=== PATIENT | female | born 1945 | race Caucasian/White ===

== ENCOUNTER 2017-12-26 11:00 | Inpatient (IN) | payer OTHER, BC ==
[2017-12-26 13:14] VITALS: BMI 18.8
[2017-12-26 14:09] VITALS: RESP 20
[2017-12-26] MEDS ORDERED: guaiFENesin DM 100 mg-10 mg/5 ml UD PO PRN (16:32)
--- NOTE | 2017-12-26 17:06 | CP.PCM.HP ---
History of Present Illness - History of Present Illness History of Present Illness: 72 yo female with history of Multiple Myeloma, CAD, COPD, HTN and DM2 was admitted at [facility] on 12/18/2017 because of generalized weakness and chest pain. Patient was diagnosed with NSTEMI when 3 sets of Troponins turned out significantly elevated. She was treated conservatively. Patient was also worked up for dysphagia and had endoscopy on 12/22/2017 which showed gastritis. She was transferred to [facility] for strengthening exercises and therapy. Present on Admission - Present on Admission Any Indicators Present on Admission: No History of DVT/PE: No History of Uncontrolled Diabetes: No Urinary Catheter: No Decubitus Ulcer Present: No Review of Systems - Review of Systems All systems: reviewed and no additional remarkable complaints except (aside from those mentioned above, 12 point system review were negative by me) Past Patient History - Infectious Disease Hx of Infectious Diseases: None - Past Medical History & Family History Past Medical History?: Yes - Past Social History Smoking Status: Never Smoked Alcohol: None Drugs: Denies Home Situation {Lives}: With Family - CARDIAC Hx Cardiac Disorders: Yes Hx Hypercholesterolemia: Yes Hx Hypertension: Yes - PULMONARY Hx Respiratory Disorders: No Hx Chronic Obstructive Pulmonary Disease (COPD): Yes - NEUROLOGICAL Hx Neurological Disorder: No - HEENT Hx HEENT Problems: Yes Hx Glaucoma: Yes - RENAL Hx Chronic Kidney Disease: No - ENDOCRINE/METABOLIC Hx Diabetes Mellitus Type 2: Yes - HEMATOLOGICAL/ONCOLOGICAL Hx Blood Disorders: No Hx Anemia: Yes Other/Comment: Multiple myeloma - INTEGUMENTARY Hx Dermatological Problems: No - MUSCULOSKELETAL/RHEUMATOLOGICAL Hx Falls: No - GASTROINTESTINAL Hx Gastrointestinal Disorders: No - GENITOURINARY/GYNECOLOGICAL Hx Genitourinary Disorders: No - PSYCHIATRIC Hx Substance Use: No - SURGICAL HISTORY Hx Coronary Artery Bypass Graft: Yes - ANESTHESIA Hx Anesthesia: Yes Hx Anesthesia Reactions: No Hx Malignant Hyperthermia: No Meds Allergies/Adverse Reactions: Allergies Allergy/AdvReac Type Severity Reaction Status Date / Time No Known Allergies Allergy Verified 12/26/17 13:14 Physical Exam - Constitutional Appears: No Acute Distress - Head Exam Head Exam: ATRAUMATIC - Eye Exam Eye Exam: absent: Scleral icterus - ENT Exam ENT Exam: Mucous Membranes Moist - Neck Exam Neck exam: Negative for: Meningismus - Respiratory Exam Respiratory Exam: absent: Rales, Rhonchi, Wheezes, Respiratory Distress - Cardiovascular Exam Cardiovascular Exam: REGULAR RHYTHM, +S1, +S2, Systolic Murmur - GI/Abdominal Exam GI & Abdominal Exam: Soft. absent: Tenderness - Rectal Exam Rectal Exam: Deferred - Back Exam Back exam: NORMAL INSPECTION - Neurological Exam Neurological exam: Alert, Oriented x3 - Psychiatric Exam Psychiatric exam: Normal Affect - Skin Skin Exam: Dry, Intact Results - Vital Signs Recent Vital Signs: Last Vital Signs Temp 96.8 F L 12/26/17 16:00 Pulse 72 12/26/17 16:00 Resp 20 12/26/17 16:00 BP 144/78 12/26/17 16:00 Pulse Ox 98 12/26/17 16:00 - Labs Labs: Laboratory Results - last 24 hr 12/26/17 16:05 POC Glucose (mg/dL) 97 Assessment & Plan - Assessment and Plan (Free Text) Assessment: 72 yo female with history of Multiple Myeloma, CAD, COPD, HTN and DM2 was admitted at [facility] on 12/18/2017 because of generalized weakness and chest pain. Patient was diagnosed with NSTEMI when 3 sets of Troponins turned out significantly elevated. She was treated conservatively. Patient was also worked up for dysphagia and had endoscopy on 12/22/2017 which showed gastritis. She was transferred to [facility] for strengthening exercises and therapy. 1. Generalized Weakness refer to PT/OT for evaluation and management 2. Multiple Myeloma Dr Mosley on consult 3. CAD continue Metoprolol and statin 4. HTN BP stable continue Metoprolol 5. DM2 BS controlled continue Januvia
[2017-12-27] MEDS: Metoprolol Succinate 25 mg XL Tab PO SCH (09:26)
--- NOTE | 2017-12-27 12:01 | CP.PCM.CON ---
History of Present Illness - History of Present Illness History of Present Illness: 72 year old female with a history of CAD s/p CABG, HTN, DM, multiple myeloma diagnosed in 10/2017, admitted to inpatient rehab. She has been receiving outpatient Velcade treatments for her myeloma. She had been on dexamethasone for myeloma treatment which was discontinued due to severe hyperglycemia. Past medical history: CAD, HTN, DM Past surgical history: CABG Family history: Denies hematologic and oncologic problems Social history: Denies tobacco, alcohol, and illicit drug use. Allergies: NKA Review of systems: All remaining review of systems including HEENT, cardiovascular, respiratory, gastrointestinal, genitourinary, musculoskeletal, dermatologic, neurologic, and psychiatric are negative unless mentioned in the HPI. Past Patient History - Infectious Disease Hx of Infectious Diseases: None - Past Medical History & Family History Past Medical History?: Yes - Past Social History Smoking Status: Never Smoked Alcohol: None Drugs: Denies Home Situation {Lives}: With Family - CARDIAC Hx Cardiac Disorders: Yes Hx Hypercholesterolemia: Yes Hx Hypertension: Yes - PULMONARY Hx Respiratory Disorders: No Hx Chronic Obstructive Pulmonary Disease (COPD): Yes - NEUROLOGICAL Hx Neurological Disorder: No - HEENT Hx HEENT Problems: Yes Hx Glaucoma: Yes - RENAL Hx Chronic Kidney Disease: No - ENDOCRINE/METABOLIC Hx Diabetes Mellitus Type 2: Yes - HEMATOLOGICAL/ONCOLOGICAL Hx Blood Disorders: No Hx Anemia: Yes Other/Comment: Multiple myeloma - INTEGUMENTARY Hx Dermatological Problems: No - MUSCULOSKELETAL/RHEUMATOLOGICAL Hx Falls: No - GASTROINTESTINAL Hx Gastrointestinal Disorders: No - GENITOURINARY/GYNECOLOGICAL Hx Genitourinary Disorders: No - PSYCHIATRIC Hx Substance Use: No - SURGICAL HISTORY Hx Coronary Artery Bypass Graft: Yes - ANESTHESIA Hx Anesthesia: Yes Hx Anesthesia Reactions: No Hx Malignant Hyperthermia: No Meds Allergies/Adverse Reactions: Allergies Allergy/AdvReac Type Severity Reaction Status Date / Time No Known Allergies Allergy Verified 12/26/17 13:14 - Medications Medications: Current Medications Allopurinol (Zyloprim) 100 mg PO DAILY [facility] Last Admin: 12/27/17 09:26 Dose: 100 mg Atorvastatin Calcium (Lipitor) 10 mg PO HS [facility] Last Admin: 12/26/17 21:17 Dose: 10 mg Famotidine (Pepcid) 20 mg PO DAILY [facility] Last Admin: 12/27/17 09:25 Dose: 20 mg Ferrous Sulfate (Feosol) 325 mg PO TID [facility] Last Admin: 12/27/17 09:30 Dose: 325 mg Guaifenesin/Dextromethorphan (Robitussin Dm) 5 ml PO Q6 PRN PRN Reason: Cough Metoprolol Succinate (Toprol Xl) 12.5 mg PO DAILY [facility] Last Admin: 12/27/17 09:26 Dose: 12.5 mg Sitagliptin Phosphate (Januvia) 25 mg PO DAILY [facility] Last Admin: 12/27/17 09:27 Dose: 25 mg Physical Exam - Head Exam Head Exam: ATRAUMATIC - Eye Exam Eye Exam: Normal appearance - ENT Exam ENT Exam: Mucous Membranes Dry - Respiratory Exam Respiratory Exam: NORMAL BREATHING PATTERN - Cardiovascular Exam Cardiovascular Exam: +S1, +S2 - GI/Abdominal Exam GI & Abdominal Exam: Normal Bowel Sounds Results - Vital Signs Recent Vital Signs: Last Vital Signs Temp 97.2 F L 12/27/17 08:17 Pulse 64 12/27/17 09:26 Resp 20 12/27/17 08:17 BP 132/72 12/27/17 09:26 Pulse Ox 100 12/27/17 08:17 - Labs Labs: Laboratory Results - last 24 hr 12/26/17 12/26/17 12/27/17 16:05 20:44 06:06 POC Glucose (mg/dL) 97 142 H 81 12/27/17 11:15 POC Glucose (mg/dL) 125 H Assessment & Plan (1) Multiple myeloma Assessment and Plan: outpatient revlimid and velcade Thank you for this interesting consult. Status: Acute
[2017-12-28] MEDS: Metoprolol Succinate 25 mg XL Tab PO SCH (09:20)
[2017-12-28] MEDS: Lactobacillus Acidophilus 500 MU Cap PO SCH (17:14)
[2017-12-28] MEDS: Brimonidine 0.2% 50 DROP/5 ML BOTTLE OU SCH (21:07)
[2017-12-29 06:43] LABS: EOS % 0.4 % (0.0-4.0); HEMOGLOBIN 8.4 g/dL (12.0-16.0); LYMPH # 1.8 K/uL (1.0-4.3); LYMPH % 36.8 % (20.0-40.0); MEAN CELL VOLUME 98.9 fl (81.0-99.0); MEAN CORPUSCULAR HEMOGLOBIN 32.4 pg (27.0-31.0); MEAN CORPUSCULAR HGB CONC 32.8 g/dL (33.0-37.0); MEAN PLATELET VOLUME 10.7 fl (7.2-11.7); MONO # 0.2 K/uL (0.0-0.8); MONO % 4.5 % (0.0-10.0); NEUT # 2.8 K/uL (1.8-7.0); NEUT % 57.3 % (50.0-75.0); NRBC % 0.1 % (0.0-0.0); RBC 2.6 Mil/uL (3.80-5.20); RED CELL DISTRIBUTION WIDTH 20.5 % (11.5-14.5); WHITE BLOOD COUNT 4.9 K/uL (4.8-10.8)
[2017-12-29 06:45] LABS: ALB/GLOB RATIO 0.6 (1.0-2.1); ALT/SGPT 25 U/L (9-52); AST/SGOT 20 U/L (14-36); BLOOD UREA NITROGEN 11 mg/dl (7-17); CALCIUM 7.9 mg/dL (8.4-10.2); GFR AFRICAN-AMERICAN > 60; GFR NON-AFRICAN AMERICAN > 60
[2017-12-29] MEDS: Metoprolol Succinate 25 mg XL Tab PO SCH (10:15)
[2017-12-29] MEDS: Lactobacillus Acidophilus 500 MU Cap PO SCH ×2 (10:19→17:13)
--- NOTE | 2017-12-29 11:53 | CP.PCM.PN ---
Subjective - Date & Time of Evaluation Date of Evaluation: 12/29/17 Time of Evaluation: 09:40 - Subjective Subjective: Feels tired Objective - Vital Signs/Intake and Output Vital Signs (last 24 hours): Temp Pulse Resp BP Pulse Ox 97.9 F 65 20 135/73 100 12/29/17 08:10 12/29/17 10:15 12/29/17 08:10 12/29/17 10:15 12/29/17 08:10 - Medications Medications: Current Medications Allopurinol (Zyloprim) 100 mg PO DAILY [facility] Last Admin: 12/29/17 10:17 Dose: 100 mg Atorvastatin Calcium (Lipitor) 10 mg PO HS [facility] Last Admin: 12/28/17 21:07 Dose: 10 mg Brimonidine Tartrate (Alphagan 0.2% Opht) 1 drop OU HS [facility] Last Admin: 12/28/17 21:07 Dose: 1 drop Famotidine (Pepcid) 20 mg PO DAILY [facility] Last Admin: 12/29/17 10:16 Dose: 20 mg Ferrous Sulfate (Feosol) 325 mg PO TID [facility] Last Admin: 12/29/17 10:16 Dose: 325 mg Guaifenesin/Dextromethorphan (Robitussin Dm) 5 ml PO Q6 PRN PRN Reason: Cough Lactobacillus Acidophilus (Bacid Acidophilus) 1 cap PO BID [facility] Last Admin: 12/29/17 10:19 Dose: 1 cap Metoprolol Succinate (Toprol Xl) 12.5 mg PO DAILY [facility] Last Admin: 12/29/17 10:15 Dose: 12.5 mg Sitagliptin Phosphate (Januvia) 25 mg PO DAILY [facility] Last Admin: 12/29/17 10:16 Dose: 25 mg - Labs Labs: 12/29/17 06:00 12/29/17 06:00 - Head Exam Head Exam: ATRAUMATIC - Eye Exam Eye Exam: Normal appearance - ENT Exam ENT Exam: Mucous Membranes Dry - Respiratory Exam Respiratory Exam: NORMAL BREATHING PATTERN - Cardiovascular Exam Cardiovascular Exam: +S1, +S2 Assessment and Plan (1) Anemia Assessment & Plan: anemia of chronic disease and multiple myeloma Status: Acute (2) Thrombocytopenia Assessment & Plan: improving suspect prior UTI Status: Acute (3) Multiple myeloma Assessment & Plan: outpatient treatment Status: Acute
[2017-12-29] MEDS: Brimonidine 0.2% 50 DROP/5 ML BOTTLE OU SCH (21:11)
[2017-12-30] MEDS: Metoprolol Succinate 25 mg XL Tab PO SCH (08:24)
[2017-12-30] MEDS: Lactobacillus Acidophilus 500 MU Cap PO SCH ×2 (08:27→17:15)
[2017-12-30] MEDS: Brimonidine 0.2% 50 DROP/5 ML BOTTLE OU SCH (21:22)
[2017-12-31] MEDS: Metoprolol Succinate 25 mg XL Tab PO SCH (09:09)
[2017-12-31] MEDS: Lactobacillus Acidophilus 500 MU Cap PO SCH ×2 (09:09→17:07)
[2017-12-31] MEDS: Brimonidine 0.2% 50 DROP/5 ML BOTTLE OU SCH (21:18)
[2018-01-01] MEDS: Lactobacillus Acidophilus 500 MU Cap PO SCH ×2 (08:29→16:47)
[2018-01-01] MEDS: Metoprolol Succinate 25 mg XL Tab PO SCH (08:30)
[2018-01-01] MEDS: Brimonidine 0.2% 50 DROP/5 ML BOTTLE OU SCH (21:53)
[2018-01-02] MEDS: Lactobacillus Acidophilus 500 MU Cap PO SCH ×2 (08:21→16:46)
[2018-01-02] MEDS: Metoprolol Succinate 25 mg XL Tab PO SCH (08:21)
--- NOTE | 2018-01-02 12:06 | CP.PCM.PN ---
Subjective - Date & Time of Evaluation Date of Evaluation: 01/02/18 Time of Evaluation: 11:00 - Subjective Subjective: Seen participating in rehab Objective - Vital Signs/Intake and Output Vital Signs (last 24 hours): Temp Pulse Resp BP Pulse Ox 97.9 F 70 20 132/62 99 01/02/18 08:12 01/02/18 08:21 01/02/18 08:12 01/02/18 08:21 01/02/18 08:12 - Medications Medications: Current Medications Allopurinol (Zyloprim) 100 mg PO DAILY [facility] Last Admin: 01/02/18 08:22 Dose: 100 mg Atorvastatin Calcium (Lipitor) 10 mg PO HS [facility] Last Admin: 01/01/18 21:53 Dose: 10 mg Brimonidine Tartrate (Alphagan 0.2% Opht) 1 drop OU HS [facility] Last Admin: 01/01/18 21:53 Dose: 1 drop Famotidine (Pepcid) 20 mg PO DAILY [facility] Last Admin: 01/02/18 08:22 Dose: 20 mg Ferrous Sulfate (Feosol) 325 mg PO TID [facility] Last Admin: 01/02/18 08:23 Dose: 325 mg Guaifenesin/Dextromethorphan (Robitussin Dm) 5 ml PO Q6 PRN PRN Reason: Cough Lactobacillus Acidophilus (Bacid Acidophilus) 1 cap PO BID [facility] Last Admin: 01/02/18 08:21 Dose: 1 cap Metoprolol Succinate (Toprol Xl) 12.5 mg PO DAILY [facility] Last Admin: 01/02/18 08:21 Dose: 12.5 mg Sitagliptin Phosphate (Januvia) 25 mg PO DAILY [facility] Last Admin: 01/02/18 08:22 Dose: 25 mg - Labs Labs: 12/29/17 06:00 12/29/17 06:00 - Head Exam Head Exam: ATRAUMATIC - Eye Exam Eye Exam: Normal appearance - ENT Exam ENT Exam: Mucous Membranes Dry - Respiratory Exam Respiratory Exam: NORMAL BREATHING PATTERN - Cardiovascular Exam Cardiovascular Exam: +S1, +S2 - GI/Abdominal Exam GI & Abdominal Exam: Normal Bowel Sounds Assessment and Plan (1) Anemia Assessment & Plan: chronic disease and multiple myeloma Status: Acute (2) Thrombocytopenia Assessment & Plan: improving Status: Acute (3) Multiple myeloma Assessment & Plan: outpatient treatment Status: Acute
--- NOTE | 2018-01-02 14:11 | CP.PCM.PN ---
Subjective - Date & Time of Evaluation Date of Evaluation: 12/28/17 Time of Evaluation: 12:00 - Subjective Subjective: Patient was seen and examined at bedside. Complains of some mild epigastric pain after eating (known history of gastritis with recent endoscopy). Denies any chest pain, shortness of breath, weakness. Tolerating therapies well. Objective - Vital Signs/Intake and Output Vital Signs (last 24 hours): Temp Pulse Resp BP Pulse Ox 96.8 F L 66 20 137/67 97 12/28/17 08:25 12/28/17 09:46 12/28/17 08:25 12/28/17 09:20 12/28/17 09:46 - Medications Medications: Current Medications Allopurinol (Zyloprim) 100 mg PO DAILY [facility] Last Admin: 12/28/17 09:20 Dose: 100 mg Atorvastatin Calcium (Lipitor) 10 mg PO HS [facility] Last Admin: 12/27/17 21:18 Dose: 10 mg Famotidine (Pepcid) 20 mg PO DAILY [facility] Last Admin: 12/28/17 09:19 Dose: 20 mg Ferrous Sulfate (Feosol) 325 mg PO TID [facility] Last Admin: 12/28/17 12:31 Dose: 325 mg Guaifenesin/Dextromethorphan (Robitussin Dm) 5 ml PO Q6 PRN PRN Reason: Cough Metoprolol Succinate (Toprol Xl) 12.5 mg PO DAILY [facility] Last Admin: 12/28/17 09:20 Dose: 12.5 mg Sitagliptin Phosphate (Januvia) 25 mg PO DAILY [facility] Last Admin: 12/28/17 09:19 Dose: 25 mg - Additional Findings Additional findings: Physical exam: Constitutional- cooperative, awake, alert Head- NCAT, PERRL Eye- PERRL, EOMI ENT- normal exam, MMM. Neck- normal inspection, supple, no JVD Respiratory- CTAB, no wheezes rales rhonchi Cardiovascular- RRR, +S1, +S2 no MRG GI/Abdominal- normal bowel sounds, soft, no mass, no hsm Skin- warm, dry Extremities Exam- normal capillary refill, normal inspection Neurological Exam- alert, awake, oriented Psych- normal mood, normal affect Assessment and Plan - Assessment and Plan (Free Text) Plan: Assessment: 72 yo female with history of Multiple Myeloma, CAD, COPD, HTN and DM2 was admitted at [facility] on 12/18/2017 because of generalized weakness and chest pain. Patient was diagnosed with NSTEMI when 3 sets of Troponins turned out significantly elevated. She was treated conservatively. Patient was also worked up for dysphagia and had endoscopy on 12/22/2017 which showed gastritis. She was transferred to [facility] for strengthening exercises and therapy. 1. Generalized Weakness refer to PT/OT for evaluation and management f/u CBC, CMP in AM 2. Multiple Myeloma Dr Mosley on consult Recommends outpatient Revlimid and Velcade upon discharge 3. CAD continue Metoprolol and statin 4. Gastritis Maalox PRN 4. HTN BP stable continue Metoprolol 5. DM2 BS controlled continue Januvia
--- NOTE | 2018-01-02 14:24 | CP.PCM.PN ---
Subjective - Date & Time of Evaluation Date of Evaluation: 01/02/18 Time of Evaluation: 13:00 - Subjective Subjective: Patient was seen and examined in PT gym. States she is feeling well without further epigastric pain. Occasionally c/o being tired. Denies any chest pain, sob, focal weakness. She is tolerating her physical therapy well. Objective - Vital Signs/Intake and Output Vital Signs (last 24 hours): Temp Pulse Resp BP Pulse Ox 97.9 F 70 20 132/62 99 01/02/18 08:12 01/02/18 08:21 01/02/18 08:12 01/02/18 08:21 01/02/18 08:12 - Medications Medications: Current Medications Allopurinol (Zyloprim) 100 mg PO DAILY [facility] Last Admin: 01/02/18 08:22 Dose: 100 mg Aspirin (Ecotrin) 81 mg PO DAILY [facility] Atorvastatin Calcium (Lipitor) 10 mg PO HS [facility] Last Admin: 01/01/18 21:53 Dose: 10 mg Brimonidine Tartrate (Alphagan 0.2% Opht) 1 drop OU HS [facility] Last Admin: 01/01/18 21:53 Dose: 1 drop Famotidine (Pepcid) 20 mg PO DAILY [facility] Last Admin: 01/02/18 08:22 Dose: 20 mg Ferrous Sulfate (Feosol) 325 mg PO TID [facility] Last Admin: 01/02/18 12:29 Dose: 325 mg Guaifenesin/Dextromethorphan (Robitussin Dm) 5 ml PO Q6 PRN PRN Reason: Cough Lactobacillus Acidophilus (Bacid Acidophilus) 1 cap PO BID [facility] Last Admin: 01/02/18 08:21 Dose: 1 cap Metoprolol Succinate (Toprol Xl) 12.5 mg PO DAILY [facility] Last Admin: 01/02/18 08:21 Dose: 12.5 mg Sitagliptin Phosphate (Januvia) 25 mg PO DAILY [facility] Last Admin: 01/02/18 08:22 Dose: 25 mg - Labs Labs: 12/29/17 06:00 12/29/17 06:00 - Additional Findings Additional findings: Physical exam: Constitutional- cooperative, awake, alert Head- NCAT, PERRL Eye- PERRL, EOMI ENT- normal exam, MMM. Neck- normal inspection, supple, no JVD Respiratory- CTAB, no wheezes rales rhonchi Cardiovascular- RRR, +S1, +S2 no MRG GI/Abdominal- normal bowel sounds, soft, no mass, no hsm Skin- warm, dry Extremities Exam- normal capillary refill, normal inspection Neurological Exam- alert, awake, oriented Psych- normal mood, normal affect Assessment and Plan - Assessment and Plan (Free Text) Plan: 72 yo female with history of Multiple Myeloma, CAD, COPD, HTN and DM2 was admitted at [facility] on 12/18/2017 because of generalized weakness and chest pain. Patient was diagnosed with NSTEMI when 3 sets of Troponins turned out significantly elevated. She was treated conservatively. Patient was also worked up for dysphagia and had endoscopy on 12/22/2017 which showed gastritis. She was transferred to [facility] for strengthening exercises and therapy. 1. Generalized Weakness due to NSTEMI and multiple myeloma refer to PT/OT for evaluation and management f/u CBC, CMP in AM 2. Multiple Myeloma Dr Mosley on consult Recommends outpatient Revlimid and Velcade upon discharge 3. CAD with recent NSTEMI continue Metoprolol and statin Patient was not on aspirin even during last admission according to chart review ! Will start 81 mg po daily 4. GERD dx Maalox PRN 4. HTN BP stable continue Metoprolol 5. DM2 BS controlled
[2018-01-02] MEDS: Brimonidine 0.2% 50 DROP/5 ML BOTTLE OU SCH (21:26)
[2018-01-03] MEDS: Metoprolol Succinate 25 mg XL Tab PO SCH (09:10)
[2018-01-03] MEDS: Lactobacillus Acidophilus 500 MU Cap PO SCH ×2 (09:14→17:35)
[2018-01-03 20:01] VITALS: TEMP 97.3
[2018-01-03] MEDS: Brimonidine 0.2% 50 DROP/5 ML BOTTLE OU SCH (21:50)
[2018-01-04 08:23] VITALS: BP 135/69; PULSE 73; O2SAT 98
[2018-01-04] MEDS: Metoprolol Succinate 25 mg XL Tab PO SCH (08:54)
[2018-01-04] MEDS: Lactobacillus Acidophilus 500 MU Cap PO SCH (08:54)
--- NOTE | 2018-01-04 11:21 | CP.PCM.PN ---
Subjective - Date & Time of Evaluation Date of Evaluation: 01/04/18 Time of Evaluation: 11:00 - Subjective Subjective: No complaints, seen ambulating Objective - Vital Signs/Intake and Output Vital Signs (last 24 hours): Temp Pulse Resp BP Pulse Ox 97.3 F L 73 20 135/69 98 01/04/18 08:23 01/04/18 08:54 01/04/18 08:23 01/04/18 08:54 01/04/18 08:23 - Medications Medications: Current Medications Allopurinol (Zyloprim) 100 mg PO DAILY [facility] Last Admin: 01/04/18 08:54 Dose: 100 mg Aspirin (Ecotrin) 81 mg PO DAILY [facility] Last Admin: 01/04/18 08:54 Dose: 81 mg Atorvastatin Calcium (Lipitor) 10 mg PO HS [facility] Last Admin: 01/03/18 21:50 Dose: 10 mg Brimonidine Tartrate (Alphagan 0.2% Opht) 1 drop OU HS [facility] Last Admin: 01/03/18 21:50 Dose: 1 drop Famotidine (Pepcid) 20 mg PO DAILY [facility] Last Admin: 01/04/18 08:54 Dose: 20 mg Ferrous Sulfate (Feosol) 325 mg PO TID [facility] Last Admin: 01/04/18 08:54 Dose: 325 mg Guaifenesin/Dextromethorphan (Robitussin Dm) 5 ml PO Q6 PRN PRN Reason: Cough Lactobacillus Acidophilus (Bacid Acidophilus) 1 cap PO BID [facility] Last Admin: 01/04/18 08:54 Dose: 1 cap Metoprolol Succinate (Toprol Xl) 12.5 mg PO DAILY [facility] Last Admin: 01/04/18 08:54 Dose: 12.5 mg Sitagliptin Phosphate (Januvia) 25 mg PO DAILY [facility] Last Admin: 01/04/18 08:54 Dose: 25 mg - Labs Labs: 12/29/17 06:00 12/29/17 06:00 - Head Exam Head Exam: ATRAUMATIC - Eye Exam Eye Exam: Normal appearance - ENT Exam ENT Exam: Mucous Membranes Dry - Respiratory Exam Respiratory Exam: NORMAL BREATHING PATTERN - Cardiovascular Exam Cardiovascular Exam: +S1, +S2 - GI/Abdominal Exam GI & Abdominal Exam: Normal Bowel Sounds Assessment and Plan (1) Anemia Assessment & Plan: chronic disease and myeloma Status: Acute (2) Thrombocytopenia Assessment & Plan: mild exacerbated by infection Status: Acute (3) Multiple myeloma Assessment & Plan: outpatient treatment Status: Acute
--- NOTE | 2018-01-04 19:35 | CP.PCM.DIS ---
Provider - Provider Date of Admission: 12/26/17 13:18 Attending physician: Kyle Reveles MD Primary care physician: Service Consults: Dr. Camilo Mosley Time Spent in preparation of Discharge (in minutes): 25 Hospital Course - Lab Results Lab Results: Most Recent Lab Values WBC 4.9 K/uL (4.8-10.8) 12/29/17 06:00 RBC 2.60 Mil/uL (3.80-5.20) L 12/29/17 06:00 Hgb 8.4 g/dL (12.0-16.0) L 12/29/17 06:00 Hct 25.8 % (34.0-47.0) L 12/29/17 06:00 MCV 98.9 fl (81.0-99.0) 12/29/17 06:00 MCH 32.4 pg (27.0-31.0) H 12/29/17 06:00 MCHC 32.8 g/dL (33.0-37.0) L 12/29/17 06:00 RDW 20.5 % (11.5-14.5) H 12/29/17 06:00 Plt Count 93 K/uL (130-400) L 12/29/17 06:00 MPV 10.7 fl (7.2-11.7) 12/29/17 06:00 Neut % (Auto) 57.3 % (50.0-75.0) 12/29/17 06:00 Lymph % (Auto) 36.8 % (20.0-40.0) 12/29/17 06:00 Mcculloch % (Auto) 4.5 % (0.0-10.0) 12/29/17 06:00 Eos % (Auto) 0.4 % (0.0-4.0) 12/29/17 06:00 Baso % (Auto) 1.0 % (0.0-2.0) 12/29/17 06:00 Neut # (Auto) 2.8 K/uL (1.8-7.0) 12/29/17 06:00 Lymph # (Auto) 1.8 K/uL (1.0-4.3) 12/29/17 06:00 Mcculloch # (Auto) 0.2 K/uL (0.0-0.8) 12/29/17 06:00 Eos # (Auto) 0.0 K/uL (0.0-0.7) 12/29/17 06:00 Baso # (Auto) 0.0 K/uL (0.0-0.2) 12/29/17 06:00 Sodium 139 mmol/l (132-148) 12/29/17 06:00 Potassium 3.5 MMOL/L (3.6-5.0) L 12/29/17 06:00 Chloride 108 mmol/L (98-107) H 12/29/17 06:00 Carbon Dioxide 24 mmol/L (22-30) 12/29/17 06:00 Anion Gap 11 (10-20) 12/29/17 06:00 BUN 11 mg/dl (7-17) 12/29/17 06:00 Creatinine 0.8 mg/dl (0.7-1.2) 12/29/17 06:00 Est GFR ( Amer) > 60 12/29/17 06:00 Est GFR (Non-Af Amer) > 60 12/29/17 06:00 POC Glucose (mg/dL) 123 mg/dL (65-110) H 01/04/18 10:49 Random Glucose 84 mg/dL (65-105) 12/29/17 06:00 Calcium 7.9 mg/dL (8.4-10.2) L 12/29/17 06:00 Total Bilirubin 0.4 mg/dl (0.2-1.3) 12/29/17 06:00 AST 20 U/L (14-36) 12/29/17 06:00 ALT 25 U/L (9-52) 12/29/17 06:00 Alkaline Phosphatase 124 U/L (38-126) 12/29/17 06:00 Total Protein 5.7 G/DL (6.3-8.2) L 12/29/17 06:00 Albumin 2.0 g/dL (3.5-5.0) L 12/29/17 06:00 Globulin 3.7 gm/dL (2.2-3.9) 12/29/17 06:00 Albumin/Globulin Ratio 0.6 (1.0-2.1) L 12/29/17 06:00 - Hospital Course Hospital Course: 72 yo female with history of Multiple Myeloma, CAD, COPD, HTN and DM2 was admitted at [facility] on 12/18/2017 because of generalized weakness and chest pain. Patient was diagnosed with NSTEMI when 3 sets of Troponins turned out significantly elevated. She was treated conservatively. Patient was also worked up for dysphagia and had endoscopy on 12/22/2017 which showed gastritis. She was transferred to [facility]CU for strengthening exercises and therapy. She had an uncomplicated stay in TCU and is doing much better today. She is being discharged to home in stable condition. 1. Generalized Weakness due to NSTEMI and multiple myeloma refer to PT/OT for evaluation and management f/u CBC, CMP in AM 2. Multiple Myeloma Dr Mosley on consult Recommends outpatient Revlimid and Velcade upon discharge 3. CAD with recent NSTEMI continue Metoprolol and statin Patient was not on aspirin even during last admission according to chart review ! Will start 81 mg po daily 4. GERD dx Maalox PRN 4. HTN BP stable continue Metoprolol 5. DM2 BS controlled Discharge Exam - Additional Findings Additional findings: Physical exam: Constitutional- cooperative, awake, alert Head- NCAT, PERRL Eye- PERRL, EOMI ENT- normal exam, MMM. Neck- normal inspection, supple, no JVD Respiratory- CTAB, no wheezes rales rhonchi Cardiovascular- RRR, +S1, +S2 no MRG GI/Abdominal- normal bowel sounds, soft, no mass, no hsm Skin- warm, dry Extremities Exam- normal capillary refill, normal inspection Neurological Exam- alert, awake, oriented Psych- normal mood, normal affect Discharge Plan - Discharge Medications Prescriptions: Aspirin [Ecotrin] 81 mg PO DAILY #30 tabec - Follow Up Plan Condition: GOOD Disposition: HOME/ ROUTINE Instructions: Multiple Myeloma, Acute Kidney Failure, Preventing Falls in the Older Adult Referrals: Camilo Mosley MD [Staff Provider] -
== END 2018-01-04 15:44 | disposition home or self-care (01) | DRG 945 ==
LOC: H.TCU 13:18
PROC: F07Z9FZ Gait Training/Functional Ambulation Treatment using Assistive, Adaptive, Supportive or Protective Equipment (ICD-10-PCS; principal; 2017-12-26)
PROC: F08Z4FZ Home Management Treatment using Assistive, Adaptive, Supportive or Protective Equipment (ICD-10-PCS; 2017-12-26)
PROC: F07M6FZ Therapeutic Exercise Treatment of Musculoskeletal System - Whole Body using Assistive, Adaptive, Supportive or Protective Equipment (ICD-10-PCS; 2017-12-27)
DX: R53.1 Weakness (principal); I21.4 Non-ST elevation (NSTEMI) myocardial infarction; C90.00 Multiple myeloma not having achieved remission; I25.10 Atherosclerotic heart disease of native coronary artery without angina pectoris; D63.0 Anemia in neoplastic disease; K21.9 Gastro-esophageal reflux disease without esophagitis; Z95.1 Presence of aortocoronary bypass graft; D69.6 Thrombocytopenia, unspecified; I10 Essential (primary) hypertension; K29.70 Gastritis, unspecified, without bleeding; E11.9 Type 2 diabetes mellitus without complications; J44.9 Chronic obstructive pulmonary disease, unspecified; E78.00 Pure hypercholesterolemia, unspecified

== ENCOUNTER 2018-02-07 15:15 | Inpatient (IN) | payer OTHER, BC ==
[2018-02-03 11:58] VITALS: PULSE 168
[2018-02-07 20:15] VITALS: BMI 16.2
[2018-02-07] MEDS ORDERED: Albuterol-Ipratrop 3 mg / 0.5 (3 ml) UD INH PRN (20:43)
[2018-02-07] MEDS ORDERED: cefTRIAXone (Rocephin) 1 gm Inj IVPB SCH (20:45)
--- NOTE | 2018-02-07 20:54 | CP.PCM.HP ---
History of Present Illness - History of Present Illness History of Present Illness: PMD: Nikko Pedro MD ID: Rodrigo Pond MD Heme/Oncology: Camilo Mosley MD Chief complaint: SOB The patient was seen and examined in TCU HPI: The hx was obtained from the patient and after review of the medical records. She is transferred to this [facility] for continued care and Physical therapy. She is a 72 years old female with hx of CHF, COPD, CAD and Multiple Myeloma who was admitted at the [facility] on and diagnosed with Severe Sepsis with Strep. pneumoniae Bacteremia and Acute on chronic CHF with Pneumonia. While there she developed a new unset of Atrial Fibrillation with rapid response, was transferred to the ICU and treated. At present she still has productive cough, on and off palpitation, mild SOB on exertion. PMH: Anemia; CHF systolic diastolic dysfunction;COPD; HTN; HLD; CAD; DM II; Multiple Myeloma recently treated with Velcade and Revlimid PSH: CABG; Appendectomy SH: Never Smoked; no illegal drug use; No Alcohol use; live with FH: State: no known family hx Allergies: NKDA Medication: Reviewed Present on Admission - Present on Admission Any Indicators Present on Admission: No History of DVT/PE: No History of Uncontrolled Diabetes: No Urinary Catheter: No Decubitus Ulcer Present: No Review of Systems - Constitutional Constitutional: absent: Anorexia, Chills, Fever, Headache - EENT Eyes: Requires Corrective Lenses. absent: Diplopia, Photophobia, Sees Flashes Ears: absent: Decreased Hearing, Ear Discharge, Ear Pain, Tinnitus Nose/Mouth/Throat: absent: Epistaxis, Nasal Congestion, Nasal Discharge, Sinus Pain, Sinus Pressure - Cardiovascular Cardiovascular: Dyspnea, Palpitations. absent: Chest Pain, Leg Edema - Respiratory Respiratory: Cough, Dyspnea, Chest Congestion. absent: Wheezing, Stridor - Gastrointestinal Gastrointestinal: absent: Abdominal Pain, Constipation, Diarrhea, Nausea, Vomiting - Genitourinary Genitourinary: absent: Dysuria, Flank Pain, Urinary Frequency - Musculoskeletal Musculoskeletal: absent: Arthralgias, Back Pain - Integumentary Integumentary: absent: Pruritus, Rash, Sores, Striae, Swelling - Neurological Neurological: absent: Confusion, Dizziness, Focal Weakness, Headaches, Weakness - Psychiatric Psychiatric: absent: Anxiety, Depression, Panic Attacks - Endocrine Endocrine: absent: Palpitations, Polydipsia, Polyphagia, Polyuria - Hematologic/Lymphatic Hematologic: absent: Easy Bleeding, Easy Bruising Past Patient History - Infectious Disease Hx of Infectious Diseases: None - Past Medical History & Family History Past Medical History?: Yes - Past Social History Smoking Status: Never Smoked Chewing Tobacco Use: No Cigar Use: No Alcohol: None Home Situation {Lives}: With Family - CARDIAC Hx Cardiac Disorders: Yes (CAD, CABG) Hx Congestive Heart Failure: Yes Hx Hypercholesterolemia: Yes Hx Hypertension: Yes - PULMONARY Hx Chronic Obstructive Pulmonary Disease (COPD): Yes - NEUROLOGICAL Hx Neurological Disorder: No - HEENT Hx HEENT Problems: Yes Hx Glaucoma: Yes - RENAL Other/Comment: Acute kidney Injury - ENDOCRINE/METABOLIC Hx Diabetes Mellitus Type 2: Yes - HEMATOLOGICAL/ONCOLOGICAL Hx Blood Disorders: Yes Hx Anemia: Yes Other/Comment: multiple myeloma - INTEGUMENTARY Hx Dermatological Problems: No - MUSCULOSKELETAL/RHEUMATOLOGICAL Hx Falls: No - GASTROINTESTINAL Hx Gastrointestinal Disorders: No - GENITOURINARY/GYNECOLOGICAL Hx Genitourinary Disorders: No - PSYCHIATRIC Hx Psychophysiologic Disorder: No Hx Substance Use: No - SURGICAL HISTORY Hx Surgeries: Yes Hx Appendectomy: Yes Hx Coronary Artery Bypass Graft: Yes - ANESTHESIA Hx Anesthesia: Yes Hx Anesthesia Reactions: No Hx Malignant Hyperthermia: No Meds Allergies/Adverse Reactions: Allergies Allergy/AdvReac Type Severity Reaction Status Date / Time No Known Allergies Allergy Verified 01/29/18 04:49 Physical Exam - Constitutional Appears: No Acute Distress - Head Exam Head Exam: ATRAUMATIC, NORMAL INSPECTION, NORMOCEPHALIC - Eye Exam Eye Exam: EOMI, Normal appearance Pupil Exam: NORMAL ACCOMODATION, PERRL - ENT Exam ENT Exam: Mucous Membranes Moist, Normal Exam, Normal External Ear Exam - Neck Exam Neck exam: Positive for: Full Rom, Normal Inspection. Negative for: Lymphadenopathy, Tenderness - Respiratory Exam Respiratory Exam: Rales, Rhonchi. absent: Wheezes, Stridor - Cardiovascular Exam Cardiovascular Exam: REGULAR RHYTHM, RRR, +S1, +S2. absent: Gallop - GI/Abdominal Exam GI & Abdominal Exam: Normal Bowel Sounds, Soft. absent: Mass, Organomegaly, Tenderness - Rectal Exam Rectal Exam: Deferred - Extremities Exam Extremities exam: Positive for: full ROM, normal inspection. Negative for: calf tenderness, pedal edema - Back Exam Back exam: NORMAL INSPECTION. absent: CVA tenderness (L), CVA tenderness (R) - Neurological Exam Neurological exam: Alert, CN II-XII Intact, Oriented x3, Reflexes Normal - Psychiatric Exam Psychiatric exam: Normal Affect, Normal Mood - Skin Skin Exam: Dry, Intact, Normal Color, Warm Results - Imaging and Cardiology Chest x-ray Status: Image reviewed by me, Report reviewed by me Additional comment: 02/07/18 Left Basal Atelectasis Left midlung Opacity Pulmonary vascular congestion ECHO 02/03/18 Additional comment: Left systolic function moderately impaired There is global Hypokinesis of the left ventricle left Atrium is moderately dilated Mild to moderate Concentric left ventricule hypertrophy Assessment & Plan - Assessment and Plan (Free Text) Assessment: #. Severe Sepsis with Bacteremia #. Pneumonia #. CHF with Systolic and Diastolic Dysfunction #. New unset A Fib #. ITALIA #. CAD #. DM II #. Multiple Myeloma #. Pancytopenia Plan: 72 years old female with hx of CHF and Multiple Myeloma admitted at the [facility] on 01/29/18 and diagnosed with Severe Sepsis with Strep. pneumoniae Bacteremia and Acute on chronic CHF with Pneumonia, developing new unset of Atrial Fibrillation with rapid response, is transferred to the [facility] TCU for continued treatment. #. Severe Sepsis with Strep. pneumoniae Bacteremia and Pneumonia - Dr Pond ID on consult - Continue Ceftriazone 1gm Q12H - Robitussin #. CHF with Systolic and Diastolic Dysfunction - Lasix -Nitroglycerine #. New unset A Fib - Amiodarone #. ITALIA - Follow Renal labs #. CAD - ASA - Crestor #. DM II - Januvia - Regular Insulin according to accucheck - HbA1c #. Multiple Myeloma - Out patient treatment #. Pancytopenia due to Multiple Myeloma - Transfuse PRN - Follow HB and Platelets #. Stress ulcer prophylaxis with Pepcid #d. DVT Prophylaxis with Lovenox #. Code Status: Full - Date & Time Date: 02/07/18 Time: 20:54
[2018-02-07] MEDS ORDERED: Brimonidine 0.2% 50 DROP/5 ML BOTTLE OU SCH (22:00)
[2018-02-07] MEDS: Insulin Regular 100 units/ml SC SCH (22:01)
[2018-02-07] MEDS: Brimonidine 0.2% 50 DROP/5 ML BOTTLE OU SCH (22:01)
[2018-02-07] MEDS: guaiFENesin 100 mg/5 ml Syrup UD PO PRN (22:06)
[2018-02-07] MEDS: Nitroglycerin 2% Ointment Foilpak UD TOP SCH (22:19)
[2018-02-07 22:27] VITALS: RESP 20
[2018-02-08] MEDS: Nitroglycerin 2% Ointment Foilpak UD TOP SCH ×4 (04:20→21:29)
[2018-02-08] MEDS: Insulin Regular 100 units/ml SC SCH ×4 (06:46→21:28)
[2018-02-08 07:48] LABS: PARTIAL THROMBOPLASTIN TIME 23.7 Seconds (25.6-37.1); PROTHROMBIN TIME 10.8 Seconds (9.8-13.1)
[2018-02-08 08:18] LABS: BASO % 0.7 % (0.0-2.0); EOS % 0.2 % (0.0-4.0); HEMOGLOBIN 9.4 g/dL (12.0-16.0); LYMPH # 1.1 K/uL (1.0-4.3); LYMPH % 31.2 % (20.0-40.0); MEAN CELL VOLUME 96.9 fl (81.0-99.0); MEAN CORPUSCULAR HEMOGLOBIN 32.1 pg (27.0-31.0); MEAN CORPUSCULAR HGB CONC 33.1 g/dL (33.0-37.0); MEAN PLATELET VOLUME 9.5 fl (7.2-11.7); MONO # 0.2 K/uL (0.0-0.8); MONO % 6.3 % (0.0-10.0); NEUT # 2.2 K/uL (1.8-7.0); NEUT % 61.6 % (50.0-75.0); NRBC % 0.2 % (0.0-0.0); RBC 2.92 Mil/uL (3.80-5.20); RED CELL DISTRIBUTION WIDTH 18.8 % (11.5-14.5); WHITE BLOOD COUNT 3.5 K/uL (4.8-10.8)
[2018-02-08 08:19] LABS: BLOOD UREA NITROGEN 21 mg/dl (7-17); CALCIUM 8.5 mg/dL (8.4-10.2); GFR AFRICAN-AMERICAN > 60; GFR NON-AFRICAN AMERICAN 54
[2018-02-08] MEDS: Enoxaparin 30 mg Syringe SC SCH (08:38)
[2018-02-08] MEDS ORDERED: AMIODARONE HYDROCHLORIDE PO SCH (09:00)
--- NOTE | 2018-02-08 11:55 | CARD ---
APPROVED REPORT EKG Measurement Heart [id number] <Conclusion> Normal sinus rhythm Left axis deviation Septal infarct, age undetermined ST & T wave abnormality, consider lateral ischemia Abnormal ECG
--- NOTE | 2018-02-08 11:58 | CP.PCM.PN ---
Subjective - Date & Time of Evaluation Date of Evaluation: 02/08/18 Time of Evaluation: 11:00 - Subjective Subjective: Patient was seen and examined during physical therapy. She has no new complaints. Participating in therapy. Objective - Vital Signs/Intake and Output Vital Signs (last 24 hours): Temp Pulse Resp BP Pulse Ox 97.9 F 78 20 124/64 100 02/08/18 08:21 02/08/18 08:41 02/08/18 08:21 02/08/18 08:41 02/08/18 08:21 - Medications Medications: Current Medications Albuterol/Ipratropium (Duoneb 3 Mg/0.5 Mg (3 Ml) Ud) 3 ml INH RQ6 PRN PRN Reason: wheezing Allopurinol (Zyloprim) 100 mg PO DAILY [facility] Last Admin: 02/08/18 08:41 Dose: 100 mg Amiodarone HCl (Cordarone) 100 mg PO BID [facility] Last Admin: 02/08/18 08:39 Dose: 100 mg Aspirin (Ecotrin) 81 mg PO DAILY [facility] Last Admin: 02/08/18 08:39 Dose: 81 mg Atorvastatin Calcium (Lipitor) 10 mg PO DAILY [facility] Last Admin: 02/08/18 08:41 Dose: 10 mg Brimonidine Tartrate (Alphagan 0.2% Opht) 1 drop OU HS [facility] Last Admin: 02/07/18 22:01 Dose: 1 drop Enoxaparin Sodium (Lovenox) 30 mg SC DAILY [facility] PRN Reason: Protocol Last Admin: 02/08/18 08:38 Dose: 30 mg Famotidine (Pepcid) 20 mg PO DAILY [facility] Last Admin: 02/08/18 08:38 Dose: 20 mg Ferrous Sulfate (Feosol) 325 mg PO TID [facility] Last Admin: 02/08/18 08:39 Dose: 325 mg Furosemide (Lasix) 20 mg PO DAILY [facility] Last Admin: 02/08/18 08:39 Dose: 20 mg Guaifenesin (Robitussin) 100 mg PO QID PRN PRN Reason: cough Last Admin: 02/07/18 22:06 Dose: 100 mg Ceftriaxone Sodium 1 gm/ (Sodium Chloride) 100 mls @ 100 mls/hr IVPB Q12@0600, 1800 [facility] Last Admin: 02/08/18 05:02 Dose: 100 mls/hr Insulin Human Regular (Humulin R) 0 units SC ACHS [facility] PRN Reason: Protocol Last Admin: 02/08/18 06:46 Dose: Not Given Nitroglycerin (Nitro-Bid 2% Oint) 1 ea TOP Q6H [facility] Last Admin: 02/08/18 08:41 Dose: 1 ea Sitagliptin Phosphate (Januvia) 25 mg PO DAILY [facility] Last Admin: 02/08/18 08:00 Dose: 25 mg - Labs Labs: 02/08/18 07:50 02/08/18 07:50 PT 10.8 Seconds (9.8-13.1) 02/08/18 07:10 INR 1.0 (0.9-1.2) 02/08/18 07:10 APTT 23.7 Seconds (25.6-37.1) L 02/08/18 07:10 - Additional Findings Additional findings: Physical exam: Constitutional- cooperative, awake, alert Head- NCAT, PERRL Eye- PERRL, EOMI ENT- normal exam, MMM. Neck- normal inspection, supple, no JVD Respiratory- CTAB, no wheezes rales rhonchi Cardiovascular- RRR, +S1, +S2 no MRG GI/Abdominal- normal bowel sounds, soft, no mass, no hsm Skin- warm, dry Extremities Exam- normal capillary refill, normal inspection Neurological Exam- alert, awake, oriented Psych- normal mood, normal affect Assessment and Plan - Assessment and Plan (Free Text) Plan: Assessment: #. Severe Sepsis with Bacteremia #. Pneumonia #. CHF with Systolic and Diastolic Dysfunction #. New unset A Fib #. ITALIA #. CAD #. DM II #. Multiple Myeloma #. Pancytopenia Plan: 72 years old female with hx of CHF and Multiple Myeloma admitted at the [facility] on 01/29/18 and diagnosed with Severe Sepsis with Strep. pneumoniae Bacteremia and Acute on chronic CHF with Pneumonia, developing new unset of Atrial Fibrillation with rapid response, is transferred to the [facility] TCU for continued treatment. #. Severe Sepsis with Strep. pneumoniae Bacteremia and Pneumonia - Dr Pond ID on consult - Continue Ceftriazone 1gm Q12H - Robitussin #. CHF with Systolic and Diastolic Dysfunction - Lasix -Nitroglycerine #. New unset A Fib - Amiodarone #. ITALIA- resolved - at baseline - monitor renal function #. CAD - ASA - Crestor #. DM II - Januvia - Regular Insulin according to accucheck - HbA1c #. Multiple Myeloma - Out patient treatment #. Pancytopenia due to Multiple Myeloma - Transfuse PRN - Follow HB and Platelets #. Stress ulcer prophylaxis with Pepcid #d. DVT Prophylaxis with Lovenox #. Code Status: Full
[2018-02-08] MEDS: Benzocaine/Menthol (Cepacol) Lozenge PO PRN (15:02)
--- NOTE | 2018-02-08 16:05 | CP.PCM.CON ---
History of Present Illness - History of Present Illness History of Present Illness: 72 years old female with hx of CHF, COPD, CAD and Multiple Myeloma who was admitted to [facility] on 01/29/18 and diagnosed with Severe Sepsis with Strep. pneumoniae Bacteremia and Acute on chronic CHF with Pneumonia. While there she developed a new unset of Atrial Fibrillation with rapid response, was transferred to the ICU and treated. At present she still has productive cough, on and off palpitation, mild SOB on exertion. CXR shows persistent infiltrates and effusion Pulm did not recc thoracentesis Because of severe immune compromised state it was felt better to cont IV rx for total 14 days PMH: Anemia; CHF systolic diastolic dysfunction;COPD; HTN; HLD; CAD; DM II; Multiple Myeloma recently treated with Velcade and Revlimid PSH: CABG; Appendectomy SH: Never Smoked; no illegal drug use; No Alcohol use; live with FH: State: no known family hx Allergies: NKDA Review of Systems - Review of Systems All systems: reviewed and no additional remarkable complaints except - Constitutional Constitutional: As Per HPI - EENT Eyes: absent: As Per HPI, Blind Spots, Blurred Vision, Change in Vision, Decreased Night Vision, Diplopia, Discharge, Dry Eye, Exophthalmos, Floaters, Irritation, Itchy Eyes, Loss of Peripheral Vision, Pain, Photophobia, Requires Corrective Lenses, Sees Flashes, Spots in Vision, Tunnel Vision, Other Visual Disturbances, Loss of Vision, Other Ears: absent: As Per HPI, Decreased Hearing, Ear Discharge, Ear Pain, Tinnitus, Abnormal Hearing, Disequilibrium, Dizziness, Other Nose/Mouth/Throat: absent: As Per HPI, Epistaxis, Nasal Congestion, Nasal Discharge, Nasal Obstruction, Nasal Trauma, Nose Pain, Post Nasal Drip, Sinus Pain, Sinus Pressure, Bleeding Gums, Change in Voice, Dental Pain, Dry Mouth, Dysphagia, Halitosis, Hoarsness, Lip Swelling, Mouth Lesions, Mouth Pain, Odynophagia, Sore Throat, Throat Swelling, Tongue Swelling, Facial Pain, Neck Pain, Neck Mass, Other - Breasts Breasts: absent: As Per HPI, Change in Shape, Mass, Pain, Nipple Discharge, Nipple Inversion, Skin Changes, Swelling, Other - Cardiovascular Cardiovascular: As Per HPI - Respiratory Respiratory: As Per HPI, Cough, Dyspnea. absent: Hemoptysis - Gastrointestinal Gastrointestinal: absent: As Per HPI, Abdominal Pain, Belching, Bloating, Change in Bowel Habits, Change in Stool Character, Coffee Ground Emesis, Constipation, Cramping, Diarrhea, Dyspepsia, Dysphagia, Early Satiety, Excessive Flatus, Fecal Incontinence, Heartburn, Hematemesis, Hematochezia, Loose Stools, Melena, Nausea, Odynophagia, Temesmus, Vomiting, Other - Genitourinary Genitourinary: absent: As Per HPI, Change in Urinary Stream, Difficulty Urinating, Dysuria, Flank Pain, Hematuria, Pyuria, Nocturia, Urinary Incontinence, Urinary Frequency, Urinary Hesitance, Urinary Urgency, Voiding Freq/Small Amts, Freq UTI, Hx Renal/Bladder Calculi, Hx /Renal Surgery, Bladder Distension, Other - Reproductive: Female Reproductive:Female: absent: As Per HPI, Amenorrhea, Amenorrhea/ Control, Currently Menstual, Cycle <21 Days, Cycle >35 Days, Cycle Variable, Menses 1-7 Days, Menses >/= 8 Days, Menses Variable, Cycle > 4 Weeks Between, No Menses for 6 Months, Heavy Menses, Light Menses, Normal Menses, Spotting Between Cycles , S/P Hysterectomy, Menopausal, Post Menopausal, Premenarche, Abnormal Vaginal Bleeding, Dysmenorrhea, Dyspareunia, Genital Lesions, Genital Pruritis, Pelvic Pain, Prolapse Symptoms, Sexual Dysfunction, Vaginal Discharge, Vaginal Dryness , Vaginal Odor, Vaginal Pruritis, Other - Menstruation Menstruation: absent: As Per HPI, Amenorrhea, Amenorrhea/ Control, Currently Menstual, Cycle <21 Days, Cycle >35 Days, Cycle Variable, Menses 1-7 Days, Menses >/= 8 Days, Menses Variable, Cycle > 4 Weeks Between, No Menses for 6 Months, Heavy Menses, Light Menses, Normal Menses, Spotting Between Cycles , S/P Hysterectomy, Menopausal, Post Menopausal, Premenarche, Abnormal Vaginal Bleeding, Dysmenorrhea, Other - Musculoskeletal Musculoskeletal: As Per HPI. absent: Abnormal Gait, Arthralgias, Atrophy, Back Pain, Deformity, Joint Swelling, Limited Range of Motion, Loss of Height, Muscle Cramps, Muscle Weakness, Myalgias, Neck Pain, Numbness, Radiating Pain into Limb, Stiffness, Tingling, Other - Integumentary Integumentary: absent: As Per HPI, Acne, Alopecia, Bleeding Lesions, Change in Hair, Change in Nails, Change in Pigmentation, Changing Lesions, Dry Skin, Erythema, Furuncle, Hirsutism, Lesions, New Lesions, Non-Healing Lesions, Photosensitivity, Pruritus, Rash, Skin Pain, Skin Ulcer, Sores, Striae, Swelling , Unusual Bruising, Wounds, Jaundice, Other - Neurological Neurological: absent: As Per HPI, Abnormal Gait, Abnormal Hearing, Abnormal Movements, Abnormal Speech, Behavioral Changes, Burning Sensations, Confusion, Convulsions, Disequilibrium, Dizziness, Numbness, Focal Weakness, Frequent Falls , Headaches, Lack of Coordination, Loss of Vision, Memory Loss, Paresthesias, Radicular Pain, Restless Legs, Sensory Deficit, Syncope, Tingling, Tremor, Vertigo, Weakness, Other Visual Disturbances, Other - Psychiatric Psychiatric: absent: As Per HPI, Abnormal Sleep Pattern, Anhedonia, Anxiety, Auditory Hallucinations, Behavioral Changes, Change in Appetite, Change in Libido, Confusion, Depression, Difficulty Concentrating, Hallucinations, Homicidal Ideation, Hopelessness, Irritability, Memory Loss, Mood Swings, Panic Attacks, Paranoia, Suicidal Ideation, Visual Hallucinations, Tactile Hallucinations, Other - Endocrine Endocrine: absent: As Per HPI, Change in Body Appearance, Change in Libido, Cold Intolorance, Deepening of Voice, Excessive Sweating, Fatigue, Flushing, Heat Intolorance, Increase in Ring/Shoe/Hat Size, Palpitations, Polydipsia, Polyphagia, Polyuria, Other - Hematologic/Lymphatic Hematologic: absent: As Per HPI, Easy Bleeding, Easy Bruising, Lymphadenopathy, Other Past Patient History - Infectious Disease Hx of Infectious Diseases: None - Past Medical History & Family History Past Medical History?: Yes - Past Social History Smoking Status: Never Smoked - CARDIAC Hx Cardiac Disorders: Yes (CAD, CABG) Hx Congestive Heart Failure: Yes Hx Hypercholesterolemia: Yes Hx Hypertension: Yes - PULMONARY Hx Chronic Obstructive Pulmonary Disease (COPD): Yes - NEUROLOGICAL Hx Neurological Disorder: No - HEENT Hx HEENT Problems: Yes Hx Glaucoma: Yes - RENAL Other/Comment: Acute kidney Injury - ENDOCRINE/METABOLIC Hx Diabetes Mellitus Type 2: Yes - HEMATOLOGICAL/ONCOLOGICAL Hx Blood Disorders: Yes Hx Anemia: Yes Other/Comment: multiple myeloma - INTEGUMENTARY Hx Dermatological Problems: No - MUSCULOSKELETAL/RHEUMATOLOGICAL Hx Falls: No - GASTROINTESTINAL Hx Gastrointestinal Disorders: No - GENITOURINARY/GYNECOLOGICAL Hx Genitourinary Disorders: No - PSYCHIATRIC Hx Psychophysiologic Disorder: No Hx Substance Use: No - SURGICAL HISTORY Hx Surgeries: Yes Hx Appendectomy: Yes Hx Coronary Artery Bypass Graft: Yes - ANESTHESIA Hx Anesthesia: Yes Hx Anesthesia Reactions: No Hx Malignant Hyperthermia: No Meds Allergies/Adverse Reactions: Allergies Allergy/AdvReac Type Severity Reaction Status Date / Time No Known Allergies Allergy Verified 01/29/18 04:49 - Medications Medications: Current Medications Albuterol/Ipratropium (Duoneb 3 Mg/0.5 Mg (3 Ml) Ud) 3 ml INH RQ6 PRN PRN Reason: wheezing Allopurinol (Zyloprim) 100 mg PO DAILY [facility] Last Admin: 02/08/18 08:41 Dose: 100 mg Amiodarone HCl (Cordarone) 100 mg PO BID [facility] Last Admin: 02/08/18 08:39 Dose: 100 mg Aspirin (Ecotrin) 81 mg PO DAILY [facility] Last Admin: 02/08/18 08:39 Dose: 81 mg Atorvastatin Calcium (Lipitor) 10 mg PO DAILY [facility] Last Admin: 02/08/18 08:41 Dose: 10 mg Benzocaine/Menthol (Cepacol Sore Throat) 1 figueroa PO Q3 PRN PRN Reason: Sore Throat Last Admin: 02/08/18 15:02 Dose: 1 figueroa Brimonidine Tartrate (Alphagan 0.2% Opht) 1 drop OU HS [facility] Last Admin: 02/07/18 22:01 Dose: 1 drop Enoxaparin Sodium (Lovenox) 30 mg SC DAILY [facility] PRN Reason: Protocol Last Admin: 02/08/18 08:38 Dose: 30 mg Famotidine (Pepcid) 20 mg PO DAILY [facility] Last Admin: 02/08/18 08:38 Dose: 20 mg Ferrous Sulfate (Feosol) 325 mg PO TID [facility] Last Admin: 02/08/18 12:29 Dose: 325 mg Furosemide (Lasix) 20 mg PO DAILY [facility] Last Admin: 02/08/18 08:39 Dose: 20 mg Guaifenesin (Robitussin) 100 mg PO QID PRN PRN Reason: cough Last Admin: 02/07/18 22:06 Dose: 100 mg Ceftriaxone Sodium 1 gm/ (Sodium Chloride) 100 mls @ 100 mls/hr IVPB Q12@0600, 1800 [facility] Last Admin: 02/08/18 05:02 Dose: 100 mls/hr Insulin Human Regular (Humulin R) 0 units SC ACHS [facility] PRN Reason: Protocol Last Admin: 02/08/18 12:27 Dose: Not Given Nitroglycerin (Nitro-Bid 2% Oint) 1 ea TOP Q6H [facility] Last Admin: 02/08/18 15:04 Dose: 1 ea Sitagliptin Phosphate (Januvia) 25 mg PO DAILY [facility] Last Admin: 02/08/18 08:00 Dose: 25 mg Physical Exam - Constitutional Appears: Non-toxic, Cachectic, Chronically Ill - Head Exam Head Exam: ATRAUMATIC, NORMAL INSPECTION, NORMOCEPHALIC - Eye Exam Eye Exam: EOMI, PERRL. absent: Scleral icterus Pupil Exam: NORMAL ACCOMODATION - ENT Exam ENT Exam: Mucous Membranes Dry, Normal External Ear Exam - Neck Exam Neck exam: Negative for: Lymphadenopathy - Respiratory Exam Respiratory Exam: Decreased Breath Sounds, Prolonged Expiratory Phase, Rhonchi Additional comments: decreased breath sounds right base - Cardiovascular Exam Cardiovascular Exam: REGULAR RHYTHM - GI/Abdominal Exam GI & Abdominal Exam: Diminished Bowel Sounds, Soft. absent: Tenderness - Rectal Exam Rectal Exam: Deferred - Exam Exam: NORMAL INSPECTION - Extremities Exam Extremities exam: Negative for: pedal edema - Back Exam Back exam: absent: CVA tenderness (L), CVA tenderness (R) - Neurological Exam Neurological exam: Alert, CN II-XII Intact, Oriented x3, Reflexes Normal - Psychiatric Exam Psychiatric exam: Normal Mood - Skin Skin Exam: Dry Results - Vital Signs Recent Vital Signs: Last Vital Signs Temp 97.9 F 02/08/18 08:21 Pulse 78 02/08/18 08:41 Resp 20 02/08/18 08:21 BP 124/64 02/08/18 15:04 Pulse Ox 100 02/08/18 08:21 - Labs Result Diagrams: 02/08/18 07:50 02/08/18 07:50 Labs: Laboratory Results - last 24 hr 02/07/18 02/08/18 02/08/18 21:22 05:18 07:10 WBC RBC Hgb Hct MCV MCH MCHC RDW Plt Count MPV Neut % (Auto) Lymph % (Auto) [place] % (Auto) Eos % (Auto) Baso % (Auto) Neut # (Auto) Lymph # (Auto) [place] # (Auto) Eos # (Auto) Baso # (Auto) PT 10.8 INR 1.0 APTT 23.7 L Sodium Potassium Chloride Carbon Dioxide Anion Gap BUN Creatinine Est GFR ( Amer) Est GFR (Non-Af Amer) POC Glucose (mg/dL) 104 104 Random Glucose Hemoglobin A1c Calcium 02/08/18 02/08/18 02/08/18 07:50 07:50 07:50 WBC 3.5 L RBC 2.92 L Hgb 9.4 L Hct 28.3 L MCV 96.9 D MCH 32.1 H MCHC 33.1 RDW 18.8 H Plt Count 77 L MPV 9.5 Neut % (Auto) 61.6 Lymph % (Auto) 31.2 [place] % (Auto) 6.3 Eos % (Auto) 0.2 Baso % (Auto) 0.7 Neut # (Auto) 2.2 Lymph # (Auto) 1.1 [place] # (Auto) 0.2 Eos # (Auto) 0.0 Baso # (Auto) 0.0 PT INR APTT Sodium 137 Potassium 3.8 Chloride 103 Carbon Dioxide 27 Anion Gap 11 BUN 21 H Creatinine 1.0 Est GFR ( Amer) > 60 Est GFR (Non-Af Amer) 54 POC Glucose (mg/dL) Random Glucose 111 H Hemoglobin A1c 6.1 Calcium 8.5 02/08/18 10:54 WBC RBC Hgb Hct MCV MCH MCHC RDW Plt Count MPV Neut % (Auto) Lymph % (Auto) [place] % (Auto) Eos % (Auto) Baso % (Auto) Neut # (Auto) Lymph # (Auto) [place] # (Auto) Eos # (Auto) Baso # (Auto) PT INR APTT Sodium Potassium Chloride Carbon Dioxide Anion Gap BUN Creatinine Est GFR ( Amer) Est GFR (Non-Af Amer) POC Glucose (mg/dL) 109 Random Glucose Hemoglobin A1c Calcium Assessment & Plan (1) Pneumococcal sepsis Status: Acute (2) Pneumococcal septicemia Status: Acute (3) Pneumonia Status: Acute (4) Pneumonia Status: Acute (5) Acute pulmonary edema Status: Acute - Assessment and Plan (Free Text) Assessment: cont IV rx follow up CXR or CT chest
[2018-02-08] MEDS: guaiFENesin 100 mg/5 ml Syrup UD PO PRN (17:53)
[2018-02-08] MEDS ORDERED: cefTRIAXone (Rocephin) 1 gm Inj IVPB SCH (20:45)
[2018-02-08] MEDS: Brimonidine 0.2% 50 DROP/5 ML BOTTLE OU SCH (21:27)
[2018-02-09] MEDS: Nitroglycerin 2% Ointment Foilpak UD TOP SCH ×4 (01:55→21:27)
[2018-02-09] MEDS: Insulin Regular 100 units/ml SC SCH ×4 (06:34→21:28)
[2018-02-09] MEDS: Enoxaparin 30 mg Syringe SC SCH (08:59)
--- NOTE | 2018-02-09 13:31 | CP.PCM.PN ---
Subjective - Date & Time of Evaluation Date of Evaluation: 02/09/18 Time of Evaluation: 13:00 - Subjective Subjective: patient with generalized weakness Objective - Vital Signs/Intake and Output Vital Signs (last 24 hours): Temp Pulse Resp BP Pulse Ox 97.0 F L 89 20 109/70 99 02/09/18 07:57 02/09/18 09:02 02/09/18 07:57 02/09/18 09:02 02/09/18 07:57 - Medications Medications: Current Medications Albuterol/Ipratropium (Duoneb 3 Mg/0.5 Mg (3 Ml) Ud) 3 ml INH RQ6 PRN PRN Reason: wheezing Allopurinol (Zyloprim) 100 mg PO DAILY [facility] Last Admin: 02/09/18 08:59 Dose: 100 mg Amiodarone HCl (Cordarone) 100 mg PO BID [facility] Last Admin: 02/09/18 08:57 Dose: 100 mg Aspirin (Ecotrin) 81 mg PO DAILY [facility] Last Admin: 02/09/18 08:59 Dose: 81 mg Atorvastatin Calcium (Lipitor) 10 mg PO DAILY [facility] Last Admin: 02/09/18 08:59 Dose: 10 mg Benzocaine/Menthol (Cepacol Sore Throat) 1 figueroa PO Q3 PRN PRN Reason: Sore Throat Last Admin: 02/08/18 15:02 Dose: 1 figueroa Brimonidine Tartrate (Alphagan 0.2% Opht) 1 drop OU HS [facility] Last Admin: 02/08/18 21:27 Dose: 1 drop Enoxaparin Sodium (Lovenox) 30 mg SC DAILY [facility] PRN Reason: Protocol Last Admin: 02/09/18 08:59 Dose: 30 mg Famotidine (Pepcid) 20 mg PO DAILY [facility] Last Admin: 02/09/18 08:58 Dose: 20 mg Ferrous Sulfate (Feosol) 325 mg PO TID [facility] Last Admin: 02/09/18 13:15 Dose: 325 mg Furosemide (Lasix) 20 mg PO DAILY [facility] Last Admin: 02/09/18 09:02 Dose: 20 mg Guaifenesin (Robitussin) 100 mg PO QID PRN PRN Reason: cough Last Admin: 02/08/18 17:53 Dose: 100 mg Ceftriaxone Sodium 1 gm/ (Sodium Chloride) 100 mls @ 100 mls/hr IVPB Q12@0600, 1800 [facility] Last Admin: 02/09/18 05:46 Dose: 100 mls/hr Insulin Human Regular (Humulin R) 0 units SC ACHS [facility] PRN Reason: Protocol Last Admin: 02/09/18 12:35 Dose: Not Given Nitroglycerin (Nitro-Bid 2% Oint) 1 ea TOP Q6H [facility] Last Admin: 02/09/18 09:02 Dose: 1 ea Sitagliptin Phosphate (Januvia) 25 mg PO DAILY [facility] Last Admin: 02/09/18 08:59 Dose: 25 mg - Labs Labs: 02/08/18 07:50 02/08/18 07:50 PT 10.8 Seconds (9.8-13.1) 02/08/18 07:10 INR 1.0 (0.9-1.2) 02/08/18 07:10 APTT 23.7 Seconds (25.6-37.1) L 02/08/18 07:10 - Head Exam Head Exam: ATRAUMATIC, NORMAL INSPECTION, NORMOCEPHALIC - Eye Exam Eye Exam: EOMI, Normal appearance, PERRL Pupil Exam: NORMAL ACCOMODATION - ENT Exam ENT Exam: Mucous Membranes Moist, Normal Exam - Neck Exam Neck Exam: Full ROM, Normal Inspection - Respiratory Exam Respiratory Exam: Clear to Ausculation Bilateral, NORMAL BREATHING PATTERN - Cardiovascular Exam Cardiovascular Exam: REGULAR RHYTHM - GI/Abdominal Exam GI & Abdominal Exam: Normal Bowel Sounds - Rectal Exam Rectal Exam: Black Stool - Exam External exam: NORMAL EXTERNAL EXAM - Extremities Exam Extremities Exam: Full ROM, Normal Capillary Refill - Back Exam Back Exam: NORMAL INSPECTION - Neurological Exam Neurological Exam: Alert, Awake Neuro motor strength exam: Left Upper Extremity: 3, Right Upper Extremity: 3, Left Lower Extremity: 3, Right Lower Extremity: 3 - Psychiatric Exam Psychiatric exam: Normal Affect, Normal Mood - Skin Skin Exam: Dry, Normal Color Assessment and Plan (1) Gait abnormality Assessment & Plan: plan for physical, occupational therapy for rom, strenghtening transfers and gait training Status: Acute (2) Pneumococcal sepsis Status: Acute (3) Pneumococcal septicemia Status: Acute (4) Pneumonia Status: Acute (5) Pneumonia Status: Acute (6) Acute pulmonary edema Status: Acute (7) Anemia Status: Acute (8) Atrial flutter Status: Acute (9) Bacteremia Status: Acute
--- NOTE | 2018-02-09 13:33 | CP.PCM.CON ---
History of Present Illness - History of Present Illness History of Present Illness: 72 year old female with generalized weakness, with history of multile myeloma, Chf, Cad copd for TCU and now for rehab Review of Systems - Musculoskeletal Musculoskeletal: Muscle Weakness Past Patient History - Infectious Disease Hx of Infectious Diseases: None - Past Medical History & Family History Past Medical History?: Yes - Past Social History Smoking Status: Never Smoked - CARDIAC Hx Cardiac Disorders: Yes (CAD, CABG) Hx Congestive Heart Failure: Yes Hx Hypercholesterolemia: Yes Hx Hypertension: Yes - PULMONARY Hx Chronic Obstructive Pulmonary Disease (COPD): Yes - NEUROLOGICAL Hx Neurological Disorder: No - HEENT Hx HEENT Problems: Yes Hx Glaucoma: Yes - RENAL Other/Comment: Acute kidney Injury - ENDOCRINE/METABOLIC Hx Diabetes Mellitus Type 2: Yes - HEMATOLOGICAL/ONCOLOGICAL Hx Blood Disorders: Yes Hx Anemia: Yes Other/Comment: multiple myeloma - INTEGUMENTARY Hx Dermatological Problems: No - MUSCULOSKELETAL/RHEUMATOLOGICAL Hx Falls: No - GASTROINTESTINAL Hx Gastrointestinal Disorders: No - GENITOURINARY/GYNECOLOGICAL Hx Genitourinary Disorders: No - PSYCHIATRIC Hx Psychophysiologic Disorder: No Hx Substance Use: No - SURGICAL HISTORY Hx Surgeries: Yes Hx Appendectomy: Yes Hx Coronary Artery Bypass Graft: Yes - ANESTHESIA Hx Anesthesia: Yes Hx Anesthesia Reactions: No Hx Malignant Hyperthermia: No Meds Allergies/Adverse Reactions: Allergies Allergy/AdvReac Type Severity Reaction Status Date / Time No Known Allergies Allergy Verified 01/29/18 04:49 - Medications Medications: Current Medications Albuterol/Ipratropium (Duoneb 3 Mg/0.5 Mg (3 Ml) Ud) 3 ml INH RQ6 PRN PRN Reason: wheezing Allopurinol (Zyloprim) 100 mg PO DAILY [facility] Last Admin: 02/09/18 08:59 Dose: 100 mg Amiodarone HCl (Cordarone) 100 mg PO BID [facility] Last Admin: 02/09/18 08:57 Dose: 100 mg Aspirin (Ecotrin) 81 mg PO DAILY [facility] Last Admin: 02/09/18 08:59 Dose: 81 mg Atorvastatin Calcium (Lipitor) 10 mg PO DAILY [facility] Last Admin: 02/09/18 08:59 Dose: 10 mg Benzocaine/Menthol (Cepacol Sore Throat) 1 figueroa PO Q3 PRN PRN Reason: Sore Throat Last Admin: 02/08/18 15:02 Dose: 1 figueroa Brimonidine Tartrate (Alphagan 0.2% Opht) 1 drop OU HS [facility] Last Admin: 02/08/18 21:27 Dose: 1 drop Enoxaparin Sodium (Lovenox) 30 mg SC DAILY [facility] PRN Reason: Protocol Last Admin: 02/09/18 08:59 Dose: 30 mg Famotidine (Pepcid) 20 mg PO DAILY [facility] Last Admin: 02/09/18 08:58 Dose: 20 mg Ferrous Sulfate (Feosol) 325 mg PO TID [facility] Last Admin: 02/09/18 13:15 Dose: 325 mg Furosemide (Lasix) 20 mg PO DAILY [facility] Last Admin: 02/09/18 09:02 Dose: 20 mg Guaifenesin (Robitussin) 100 mg PO QID PRN PRN Reason: cough Last Admin: 02/08/18 17:53 Dose: 100 mg Ceftriaxone Sodium 1 gm/ (Sodium Chloride) 100 mls @ 100 mls/hr IVPB Q12@0600, 1800 [facility] Last Admin: 02/09/18 05:46 Dose: 100 mls/hr Insulin Human Regular (Humulin R) 0 units SC ACHS [facility] PRN Reason: Protocol Last Admin: 02/09/18 12:35 Dose: Not Given Nitroglycerin (Nitro-Bid 2% Oint) 1 ea TOP Q6H [facility] Last Admin: 02/09/18 09:02 Dose: 1 ea Sitagliptin Phosphate (Januvia) 25 mg PO DAILY [facility] Last Admin: 02/09/18 08:59 Dose: 25 mg Physical Exam - Head Exam Head Exam: ATRAUMATIC, NORMAL INSPECTION, NORMOCEPHALIC - Eye Exam Eye Exam: EOMI, Normal appearance, PERRL Pupil Exam: NORMAL ACCOMODATION - ENT Exam ENT Exam: Mucous Membranes Moist, Normal Exam - Neck Exam Neck exam: Positive for: Normal Inspection - Respiratory Exam Respiratory Exam: NORMAL BREATHING PATTERN - Cardiovascular Exam Cardiovascular Exam: REGULAR RHYTHM - GI/Abdominal Exam GI & Abdominal Exam: Normal Bowel Sounds - Rectal Exam Rectal Exam: NORMAL INSPECTION - Exam External exam: NORMAL EXTERNAL EXAM - Extremities Exam Extremities exam: Positive for: normal inspection - Back Exam Back exam: NORMAL INSPECTION - Neurological Exam Neurological exam: Alert - Psychiatric Exam Psychiatric exam: Normal Affect - Skin Skin Exam: Dry, Intact Results - Vital Signs Recent Vital Signs: Last Vital Signs Temp 97.0 F L 02/09/18 07:57 Pulse 89 02/09/18 09:02 Resp 20 02/09/18 07:57 BP 109/70 02/09/18 09:02 Pulse Ox 99 02/09/18 07:57 - Labs Result Diagrams: 02/08/18 07:50 02/08/18 07:50 Labs: Laboratory Results - last 24 hr 02/08/18 02/08/18 16:10 20:51 POC Glucose (mg/dL) 136 H 163 H Assessment & Plan (1) Gait abnormality Assessment and Plan: plan for physical, occupational, rec therapy for rom, strenghtening transfers and gait training Status: Acute (2) Pneumococcal sepsis Status: Acute (3) Pneumococcal septicemia Status: Acute (4) Pneumonia Status: Acute (5) Pneumonia Status: Acute (6) Acute pulmonary edema Status: Acute (7) Anemia Status: Acute (8) Atrial flutter Status: Acute (9) Bacteremia Status: Acute
[2018-02-09] MEDS: Benzocaine/Menthol (Cepacol) Lozenge PO PRN (16:58)
--- NOTE | 2018-02-09 18:07 | PCM.RRT ---
<Sultan Tracie - Last Filed: 02/09/18 18:32> [employer] Nurse Assessment - Situation [facility] [employer] Reason for Call: Tachycardia [facility] Called By: RN - Respiratory Oxygen Delivery Method: Nasal Cannula Received Nebulizer Treatments: No Was the Patient Ventilated with Bag/Mask 100% O2?: No - Diagnostic Test Ordered EKG: No Chest X-Ray: No CT Scan: No CPR started during [facility]?: No - Vital Signs Vital Signs: Rapid Response Vital Sign Blood Pressure 129/81 Pulse Rate 139 Respiratory Rate 24 Oxygen Saturation 99 - Vital Signs at end of [employer] Vital Signs at end of [facility]: Rapid Response End Vital Sign Blood Pressure 95/47 Pulse Rate 75 Respiratory Rate 18 O2 Sat by Pulse Oximetry 99 - Recommendations [employer] Level of Care Recommendations: Remain in current setting I.Reason for [employer] - A) Acute Change in Patient: Subjective: [employer] Location: TCU, room 712 [facility] reason: Tachycardia [employer] was called by pt's nurse due to pt's elevated heart rate in 130s. Pt is a 72 yo female w/ a pmhx of CHF, COPD, CAD and Multiple Myeloma who was admitted at the [facility] on 01/29/18 and diagnosed with Severe Sepsis with Strep pneumoniae Bacteremia and Acute on chronic CHF with Pneumonia. While there she developed a new onset of Atrial Fibrillation with rapid response, is transferred to [facility] for continued tx. At present, pt denies any chest pain,dyspnea, dizziness, headache, blurry vision or focal weakness. O: General: not in acute distress, awake, alert Respiratory- CTAB, no wheezes rales rhonchi Cardiovascular- irregular rate, Normal +S1, +S2 GI: normal bowel sounds, soft, non tender. Skin- warm, dry Extremities Exam- normal capillary refill, normal inspection Neurological Exam- alert, awake, oriented [employer] intervention: Cardizem 10 mg IVP X 2 Cardizem 60 mg po q8 d/c Lopressor 12.5 mg q12 Assessment: 72 yo w/ a pmhx of CHF, COPD, CAD, Multiple Myeloma and atrial fibrillation had an an episode of atrial fibrillation. Plan: [employer] intervention as above Pt's bp at end of [employer] was 99/47, HR 75, RR 18, Pulse ox 99% Pt is to remain in current setting [employer] leader: Dr. Servin [employer] [facility] [facility] resident: Dr. Hodges, [id number] <Héctor Servin - Last Filed: 02/09/18 19:14> [employer] Nurse Assessment - Vital Signs Vital Signs: Rapid Response Vital Sign Blood Pressure 129/81 Pulse Rate 139 Respiratory Rate 24 Oxygen Saturation 99 - Vital Signs at end of [facility] Vital Signs at end of [employer]: Rapid Response End Vital Sign Blood Pressure 95/47 Pulse Rate 75 Respiratory Rate 18 O2 Sat by Pulse Oximetry 99
[2018-02-09] MEDS: Brimonidine 0.2% 50 DROP/5 ML BOTTLE OU SCH (21:27)
--- NOTE | 2018-02-10 01:15 | CP.PCM.PN ---
Subjective - Date & Time of Evaluation Date of Evaluation: 02/10/18 Time of Evaluation: 01:15 - Subjective Subjective: called to evaluate this patient who fell while getting off the toilet seat. No LOC nor confused state Exam: The patient is in bed awake, alert, talking There is a large Hematoma 5X5CM in diameters at the mid forehead with a small bruise. Blood clots are noted in both nostrils Musculo-skeletal. No bruises to the upper nor lower extremities, chest nor back Resp: Clear, no rales nor wheezes CVS; S1 S2 RRR Abdomen: Soft and Clear Ext: pains to joints, no edemas CT Head:EXAM: CT Head Without Intravenous Contrast FINDINGS: Brain: There is mild diffuse cerebral atrophy present, consistent with this patient's age. There is moderate diffuse heterogeneity of the white matter attenuation, consistent with chronic white matter ischemic changes. Chronic left basal ganglia lacunar infarct. No hemorrhage. Ventricles: The ventricular system demonstrates mild diffuse compensatory enlargement. Bones/joints: Unremarkable. No acute fracture. Soft tissues: Frontal scalp soft tissue swelling and hematoma. Sinuses: Unremarkable as visualized. No acute sinusitis. Mastoid air cells: Unremarkable as visualized. No mastoid effusion. IMPRESSION: Age-related atrophy and chronic white matter ischemic changes, with no evidence of an acute intracranial abnormality. Soft tissue swelling and hematoma. EXAM: CT Maxillofacial Without Intravenous Contrast FINDINGS: Bones/joints: Deformity of the left nasal bone suspicious for fracture. Soft tissues: Frontal scalp soft tissue swelling and hematoma. Orbits: Unremarkable. No orbital floor fracture. Sinuses: There are postsurgical changes in the paranasal sinuses consistent with ethmoidectomy and bilateral maxillary antrostomies. There is mild mucoperiosteal thickening in the maxillary, sphenoid and frontal sinuses, consistent with chronic sinusitis. There is a trace amount of fluid in the maxillary sinuses. IMPRESSION: Nasal bone fracture. Frontal scalp soft tissue hematoma. Postsurgical changes in the paranasal sinuses. Sinusitis A&P #. Mechanical Fall with head trauma - Cold Compressor - Tylenol for pain #. Nasal bone fracture - Consult ENT Dr Swan - pain management Raphael Page MD Objective - Vital Signs/Intake and Output Vital Signs (last 24 hours): Temp Pulse Resp BP Pulse Ox 99.9 F H 104 H 20 130/57 L 91 L 02/09/18 22:35 02/09/18 22:35 02/09/18 22:35 02/09/18 22:35 02/09/18 22:35 - Medications Medications: Current Medications Albuterol/Ipratropium (Duoneb 3 Mg/0.5 Mg (3 Ml) Ud) 3 ml INH RQ6 PRN PRN Reason: wheezing Allopurinol (Zyloprim) 100 mg PO DAILY [facility] Last Admin: 02/09/18 08:59 Dose: 100 mg Amiodarone HCl (Cordarone) 100 mg PO BID [facility] Last Admin: 02/09/18 16:45 Dose: 100 mg Aspirin (Ecotrin) 81 mg PO DAILY [facility] Last Admin: 02/09/18 08:59 Dose: 81 mg Atorvastatin Calcium (Lipitor) 10 mg PO DAILY [facility] Last Admin: 02/09/18 08:59 Dose: 10 mg Benzocaine/Menthol (Cepacol Sore Throat) 1 figueroa PO Q3 PRN PRN Reason: Sore Throat Last Admin: 02/09/18 16:58 Dose: 1 figueroa Brimonidine Tartrate (Alphagan 0.2% Opht) 1 drop OU HS [facility] Last Admin: 02/09/18 21:27 Dose: 1 drop Diltiazem HCl (Cardizem) 60 mg PO Q8 [facility] Enoxaparin Sodium (Lovenox) 30 mg SC DAILY [facility] PRN Reason: Protocol Last Admin: 02/09/18 08:59 Dose: 30 mg Famotidine (Pepcid) 20 mg PO DAILY [facility] Last Admin: 02/09/18 08:58 Dose: 20 mg Ferrous Sulfate (Feosol) 325 mg PO TID [facility] Last Admin: 02/09/18 16:48 Dose: 325 mg Furosemide (Lasix) 20 mg PO DAILY [facility] Last Admin: 02/09/18 09:02 Dose: 20 mg Guaifenesin (Robitussin) 100 mg PO QID PRN PRN Reason: cough Last Admin: 02/08/18 17:53 Dose: 100 mg Ceftriaxone Sodium 1 gm/ (Sodium Chloride) 100 mls @ 100 mls/hr IVPB Q12@0600, 1800 [facility] Last Admin: 02/09/18 17:47 Dose: 100 mls/hr Insulin Human Regular (Humulin R) 0 units SC ACHS [facility] PRN Reason: Protocol Last Admin: 02/09/18 21:28 Dose: Not Given Nitroglycerin (Nitro-Bid 2% Oint) 1 ea TOP Q6H [facility] Last Admin: 02/09/18 21:27 Dose: 1 ea Sitagliptin Phosphate (Januvia) 25 mg PO DAILY [facility] Last Admin: 02/09/18 08:59 Dose: 25 mg - Labs Labs: 02/08/18 07:50 02/08/18 07:50 PT 10.8 Seconds (9.8-13.1) 02/08/18 07:10 INR 1.0 (0.9-1.2) 02/08/18 07:10 APTT 23.7 Seconds (25.6-37.1) L 02/08/18 07:10
[2018-02-10] MEDS: Nitroglycerin 2% Ointment Foilpak UD TOP SCH ×2 (02:45→09:24)
--- NOTE | 2018-02-10 02:55 | CT ---
EXAM: CT Head Without Intravenous Contrast CLINICAL HISTORY: 72 years old, female; Injury or trauma; Fall; Additional info: Fall with head trauma TECHNIQUE: Axial computed tomography images of the head/brain without intravenous contrast. All CT scans at this facility use one or more dose reduction techniques, viz.: automated exposure control; ma/kV adjustment per patient size (including targeted exams where dose is matched to indication; i.e. head); or iterative reconstruction technique. Coronal and sagittal reformatted images were created and reviewed. COMPARISON: No relevant prior studies available. FINDINGS: Brain: There is mild diffuse cerebral atrophy present, consistent with this patient's age. There is moderate diffuse heterogeneity of the white matter attenuation, consistent with chronic white matter ischemic changes. Chronic left basal ganglia lacunar infarct. No hemorrhage. Ventricles: The ventricular system demonstrates mild diffuse compensatory enlargement. Bones/joints: Unremarkable. No acute fracture. Soft tissues: Frontal scalp soft tissue swelling and hematoma. Sinuses: Unremarkable as visualized. No acute sinusitis. Mastoid air cells: Unremarkable as visualized. No mastoid effusion. IMPRESSION: Age-related atrophy and chronic white matter ischemic changes, with no evidence of an acute intracranial abnormality. Soft tissue swelling and hematoma.
--- NOTE | 2018-02-10 03:01 | CT ---
EXAM: CT Maxillofacial Without Intravenous Contrast CLINICAL HISTORY: 72 years old, female; Injury or trauma; Fall; Initial encounter; Blunt trauma (contusions or hematomas); Forehead; Additional info: [employer]ist[employer] TECHNIQUE: Axial computed tomography images of the face without intravenous contrast. All CT scans at this facility use one or more dose reduction techniques, viz.: automated exposure control; ma/kV adjustment per patient size (including targeted exams where dose is matched to indication; i.e. head); or iterative reconstruction technique. Coronal and sagittal reformatted images were created and reviewed. COMPARISON: No relevant prior studies available. FINDINGS: Bones/joints: Deformity of the left nasal bone suspicious for fracture. Soft tissues: Frontal scalp soft tissue swelling and hematoma. Orbits: Unremarkable. No orbital floor fracture. Sinuses: There are postsurgical changes in the paranasal sinuses consistent with ethmoidectomy and bilateral maxillary antrostomies. There is mild mucoperiosteal thickening in the maxillary, sphenoid and frontal sinuses, consistent with chronic sinusitis. There is a trace amount of fluid in the maxillary sinuses. IMPRESSION: Nasal bone fracture. Frontal scalp soft tissue hematoma. Postsurgical changes in the paranasal sinuses. Sinusitis.
[2018-02-10] MEDS: Insulin Regular 100 units/ml SC SCH ×2 (06:45→11:51)
[2018-02-10 08:59] VITALS: BP 144/73; PULSE 100; TEMP 97
[2018-02-10] MEDS: Enoxaparin 30 mg Syringe SC SCH (09:17)
--- NOTE | 2018-02-10 10:13 | CP.PCM.CON ---
History of Present Illness - History of Present Illness History of Present Illness: the patient is transferred to this [facility] for continued care and Physical therapy. She is a 72 years old female with hx of CHF, COPD, CAD and Multiple Myeloma who was admitted at the [facility] on 01/29/18 and diagnosed with Severe Sepsis with Strep. pneumoniae Bacteremia and Acute on chronic CHF with Pneumonia. While there she developed a new unset of Atrial Fibrillation with rapid response, was transferred to the ICU and treated. At present she still has productive cough, on and off palpitation, mild SOB on exertion. EKG: nsr pt fell yesterday injuring her forehead also today c/o pain at sternum tender to palpate PMH: Anemia; CHF systolic diastolic dysfunction; COPD; HTN; HLD; CAD; DM II; Multiple Myeloma PSH: CABG; Appendectomy Past Patient History - Infectious Disease Hx of Infectious Diseases: None - Past Medical History & Family History Past Medical History?: Yes - Past Social History Smoking Status: Never Smoked - CARDIAC Hx Cardiac Disorders: Yes (CAD, CABG) Hx Congestive Heart Failure: Yes Hx Hypercholesterolemia: Yes Hx Hypertension: Yes - PULMONARY Hx Chronic Obstructive Pulmonary Disease (COPD): Yes - NEUROLOGICAL Hx Neurological Disorder: No - HEENT Hx HEENT Problems: Yes Hx Glaucoma: Yes - RENAL Other/Comment: Acute kidney Injury - ENDOCRINE/METABOLIC Hx Diabetes Mellitus Type 2: Yes - HEMATOLOGICAL/ONCOLOGICAL Hx Blood Disorders: Yes Hx Anemia: Yes Other/Comment: multiple myeloma - INTEGUMENTARY Hx Dermatological Problems: No - MUSCULOSKELETAL/RHEUMATOLOGICAL Hx Falls: No - GASTROINTESTINAL Hx Gastrointestinal Disorders: No - GENITOURINARY/GYNECOLOGICAL Hx Genitourinary Disorders: No - PSYCHIATRIC Hx Psychophysiologic Disorder: No Hx Substance Use: No - SURGICAL HISTORY Hx Surgeries: Yes Hx Appendectomy: Yes Hx Coronary Artery Bypass Graft: Yes - ANESTHESIA Hx Anesthesia: Yes Hx Anesthesia Reactions: No Hx Malignant Hyperthermia: No Meds Allergies/Adverse Reactions: Allergies Allergy/AdvReac Type Severity Reaction Status Date / Time No Known Allergies Allergy Verified 01/29/18 04:49 - Medications Medications: Current Medications Acetaminophen (Tylenol 325mg Tab) 650 mg PO Q6 PRN PRN Reason: Headache Last Admin: 02/10/18 02:15 Dose: 650 mg Albuterol/Ipratropium (Duoneb 3 Mg/0.5 Mg (3 Ml) Ud) 3 ml INH RQ6 PRN PRN Reason: wheezing Allopurinol (Zyloprim) 100 mg PO DAILY [facility] Last Admin: 02/10/18 09:19 Dose: 100 mg Amiodarone HCl (Cordarone) 100 mg PO BID [facility] Last Admin: 02/10/18 09:18 Dose: 100 mg Aspirin (Ecotrin) 81 mg PO DAILY [facility] Last Admin: 02/10/18 09:19 Dose: 81 mg Atorvastatin Calcium (Lipitor) 10 mg PO DAILY [facility] Last Admin: 02/10/18 09:20 Dose: 10 mg Benzocaine/Menthol (Cepacol Sore Throat) 1 figueroa PO Q3 PRN PRN Reason: Sore Throat Last Admin: 02/09/18 16:58 Dose: 1 figueroa Brimonidine Tartrate (Alphagan 0.2% Opht) 1 drop OU HS [facility] Last Admin: 02/09/18 21:27 Dose: 1 drop Diltiazem HCl (Cardizem) 60 mg PO Q8 [facility] Last Admin: 02/10/18 09:17 Dose: 60 mg Enoxaparin Sodium (Lovenox) 30 mg SC DAILY [facility] PRN Reason: Protocol Last Admin: 02/10/18 09:17 Dose: 30 mg Famotidine (Pepcid) 20 mg PO DAILY [facility] Last Admin: 02/10/18 09:19 Dose: 20 mg Ferrous Sulfate (Feosol) 325 mg PO TID [facility] Last Admin: 02/10/18 09:23 Dose: 325 mg Furosemide (Lasix) 20 mg PO DAILY [facility] Last Admin: 02/10/18 09:23 Dose: 20 mg Guaifenesin (Robitussin) 100 mg PO QID PRN PRN Reason: cough Last Admin: 02/08/18 17:53 Dose: 100 mg Ceftriaxone Sodium 1 gm/ (Sodium Chloride) 100 mls @ 100 mls/hr IVPB Q12@0600, 1800 [facility] Last Admin: 02/10/18 05:58 Dose: 100 mls/hr Insulin Human Regular (Humulin R) 0 units SC ACHS [facility] PRN Reason: Protocol Last Admin: 02/10/18 06:45 Dose: Not Given Nitroglycerin (Nitro-Bid 2% Oint) 1 ea TOP Q6H [facility] Last Admin: 02/10/18 09:24 Dose: 1 ea Sitagliptin Phosphate (Januvia) 25 mg PO DAILY EM Last Admin: 02/10/18 08:00 Dose: 25 mg Physical Exam - Head Exam Additional comments: hematoma at forehead - Respiratory Exam Respiratory Exam: NORMAL BREATHING PATTERN - Cardiovascular Exam Cardiovascular Exam: REGULAR RHYTHM Results - Vital Signs Recent Vital Signs: Last Vital Signs Temp 97 F L 02/10/18 08:58 Pulse 100 H 02/10/18 09:18 Resp 20 02/10/18 08:58 BP 144/73 02/10/18 09:24 Pulse Ox 60 L 02/10/18 08:58 - Labs Result Diagrams: 02/08/18 07:50 02/08/18 07:50 Labs: Laboratory Results - last 24 hr 02/09/18 02/09/18 10:51 16:31 POC Glucose (mg/dL) 128 H 122 H Assessment & Plan (1) Anemia Status: Acute (2) Chest discomfort Assessment and Plan: non cardiac chest pain injured with the fall also pt is in NSR I have put parameters on cardizem feel that the pt's BP is dropping when she gets up Status: Acute
[2018-02-10 10:33] VITALS: O2SAT 100
[2018-02-10 11:41] LABS: BASO # 0.1 K/uL (0.0-0.2); BASO % 0.9 % (0.0-2.0); EOS % 0.3 % (0.0-4.0); HEMOGLOBIN 8.7 g/dL (12.0-16.0); LYMPH # 1.7 K/uL (1.0-4.3); LYMPH % 27.9 % (20.0-40.0); MEAN CELL VOLUME 96.9 fl (81.0-99.0); MEAN CORPUSCULAR HEMOGLOBIN 32.3 pg (27.0-31.0); MEAN CORPUSCULAR HGB CONC 33.4 g/dL (33.0-37.0); MEAN PLATELET VOLUME 8.9 fl (7.2-11.7); MONO # 0.2 K/uL (0.0-0.8); MONO % 3.9 % (0.0-10.0); NRBC % 0.1 % (0.0-0.0); RBC 2.7 Mil/uL (3.80-5.20); RED CELL DISTRIBUTION WIDTH 18.6 % (11.5-14.5)
[2018-02-10 11:58] LABS: ALB/GLOB RATIO 0.6 (1.0-2.1); ALBUMIN 2.7 g/dL (3.5-5.0); CALCIUM 8.3 mg/dL (8.4-10.2)
--- NOTE | 2018-02-10 12:02 | RAD ---
HISTORY: chest pain COMPARISON: No prior. FINDINGS: LUNGS: Extensive opacity lower half of left lung. Silhouetting of left hemidiaphragm. Silhouetting of left heart border. Possible lingular consolidation. No right-sided infiltrate. PLEURA: Probable small moderate left pleural effusion. No right pleural effusion no pneumothorax. CARDIOVASCULAR: Mild cardiomegaly. CABG. No significant congestive change. OSSEOUS STRUCTURES: No significant abnormalities. VISUALIZED UPPER ABDOMEN: Normal. OTHER FINDINGS: None. IMPRESSION: Suspect lingular consolidation. Small moderate left pleural effusion.
[2018-02-10 12:15] LABS: TROPONIN I 0.135 ng/mL (0.00-0.120)
--- NOTE | 2018-02-10 13:48 | CP.PCM.DIS ---
Provider - Provider Date of Admission: 02/07/18 20:15 Attending physician: Kyle Reveles MD Consults: Dr Delores Pedro Time Spent in preparation of Discharge (in minutes): 30 Diagnosis - Discharge Diagnosis (1) Chest pain Status: Acute Comment: 1st set of Troponin was elevated. EKG no acute ischemic changes when compared to previous. transfer to ER for admission to telemetry (2) Fall Status: Acute Comment: probably secondary vasovagal changes or sudden dropped in heart rate as per who claimed that it happened previously at home when her HR dropped to 35 and patient passing out in bed. When EMS arrived her HR was back to normal. patient might need pacemaker (3) Afib Status: Acute Comment: presently with normal rate and in sinus. will hold Cardizem. patient will need pacemaker. cardiology consult with Dr Estrella (4) Bacteremia Status: Acute Comment: continue Rocephin (5) Chronic congestive heart failure Status: Chronic Comment: on Amiodarone and Lasix (6) Multiple myeloma Status: Acute Comment: will continue outpatient management Hospital Course - Lab Results Lab Results: Most Recent Lab Values WBC 6.0 K/uL (4.8-10.8) D 02/10/18 11:30 RBC 2.70 Mil/uL (3.80-5.20) L 02/10/18 11:30 Hgb 8.7 g/dL (12.0-16.0) L 02/10/18 11:30 Hct 26.2 % (34.0-47.0) L 02/10/18 11:30 MCV 96.9 fl (81.0-99.0) 02/10/18 11:30 MCH 32.3 pg (27.0-31.0) H 02/10/18 11:30 MCHC 33.4 g/dL (33.0-37.0) 02/10/18 11:30 RDW 18.6 % (11.5-14.5) H 02/10/18 11:30 Plt Count 102 K/uL (130-400) L D 02/10/18 11:30 MPV 8.9 fl (7.2-11.7) 02/10/18 11:30 Neut % (Auto) 67.0 % (50.0-75.0) 02/10/18 11:30 Lymph % (Auto) 27.9 % (20.0-40.0) 02/10/18 11:30 Hooker % (Auto) 3.9 % (0.0-10.0) 02/10/18 11:30 Eos % (Auto) 0.3 % (0.0-4.0) 02/10/18 11:30 Baso % (Auto) 0.9 % (0.0-2.0) 02/10/18 11:30 Neut # (Auto) 4.0 K/uL (1.8-7.0) 02/10/18 11:30 Lymph # (Auto) 1.7 K/uL (1.0-4.3) 02/10/18 11:30 Hooker # (Auto) 0.2 K/uL (0.0-0.8) 02/10/18 11:30 Eos # (Auto) 0.0 K/uL (0.0-0.7) 02/10/18 11:30 Baso # (Auto) 0.1 K/uL (0.0-0.2) 02/10/18 11:30 PT 10.8 Seconds (9.8-13.1) 02/08/18 07:10 INR 1.0 (0.9-1.2) 02/08/18 07:10 APTT 23.7 Seconds (25.6-37.1) L 02/08/18 07:10 Sodium 137 mmol/l (132-148) 02/10/18 11:43 Potassium 3.8 MMOL/L (3.6-5.0) 02/10/18 11:43 Chloride 101 mmol/L (98-107) 02/10/18 11:43 Carbon Dioxide 26 mmol/L (22-30) 02/10/18 11:43 Anion Gap 14 (10-20) 02/10/18 11:43 BUN 23 mg/dl (7-17) H 02/10/18 11:43 Creatinine 1.2 mg/dl (0.7-1.2) 02/10/18 11:43 Est GFR ( Amer) 53 02/10/18 11:43 Est GFR (Non-Af Amer) 44 02/10/18 11:43 POC Glucose (mg/dL) 115 mg/dL (65-110) H 02/10/18 11:02 Random Glucose 114 mg/dL (65-105) H 02/10/18 11:43 Hemoglobin A1c 6.1 % (4.2-6.5) 02/08/18 07:50 Calcium 8.3 mg/dL (8.4-10.2) L 02/10/18 11:43 Total Bilirubin 0.2 mg/dl (0.2-1.3) 02/10/18 11:43 AST 25 U/L (14-36) 02/10/18 11:43 ALT 29 U/L (9-52) 02/10/18 11:43 Alkaline Phosphatase 115 U/L (38-126) 02/10/18 11:43 Troponin I 0.1350 ng/mL (0.00-0.120) H* 02/10/18 11:43 Total Protein 6.9 G/DL (6.3-8.2) 02/10/18 11:43 Albumin 2.7 g/dL (3.5-5.0) L D 02/10/18 11:43 Globulin 4.2 gm/dL (2.2-3.9) H 02/10/18 11:43 Albumin/Globulin Ratio 0.6 (1.0-2.1) L 02/10/18 11:43 - Hospital Course Hospital Course: 72 yo female with history of CAD, CHF, COPD, MM and new onset AFib admitted to TCU on 02/07/2018 as a transfer from [facility] for continuation of IV antibiotics because of Strept Pneumoniae Bacteremia and Pneumonia had TAP OUT OPERATOR last night because of rapid AFib. Rate was controlled with 2 doses of 10mg IV Cardizem. After about 7 hrs, patient had falling incident in the bathroom while urinating. Patient claimed she didn't know what happened and sustained a huge frontal hematoma. CT scan did not show intracerebral bleed but had nasal bone fracture. This morning she complained of chest pain. There was no acute ischemic changes but Troponin was significantly elevated. I spoke with Dr Dyan Hopkins who was covering for Dr Nikko Pedro since requested transfer back to [facility]. He advised that patient should stay in the telemetry unit here since she would be at risk during transfer. Discharge Exam - Head Exam Head Exam: NORMOCEPHALIC. absent: NORMAL INSPECTION (frontal hematoma, swollen nasal bridge) - Eye Exam Eye Exam: absent: Scleral icterus - ENT Exam ENT Exam: absent: Normal Exam (nasal bridge swollen with scanty blood on both nostrils) - Respiratory Exam Respiratory Exam: Rales, Rhonchi. absent: Respiratory Distress - Cardiovascular Exam Cardiovascular Exam: Bradycardia - GI/Abdominal Exam GI & Abdominal Exam: Soft. absent: Tenderness - Rectal Exam Rectal Exam: Deferred - Neurological Exam Neurological exam: Alert, Oriented x3 - Psychiatric Exam Psychiatric exam: Normal Affect - Skin Skin Exam: Dry, Intact Discharge Plan - Follow Up Plan Condition: GOOD Disposition: HOSPICE - MEDICAL FACILITY
== END 2018-02-10 13:15 | disposition short-term general hospital (02) | DRG 871 ==
LOC: H.TCU 20:15
PROC: 3E03329 Introduction of Other Anti-infective into Peripheral Vein, Percutaneous Approach (ICD-10-PCS; principal; 2018-02-07)
PROC: F07Z9FZ Gait Training/Functional Ambulation Treatment using Assistive, Adaptive, Supportive or Protective Equipment (ICD-10-PCS; 2018-02-07)
PROC: F08Z4FZ Home Management Treatment using Assistive, Adaptive, Supportive or Protective Equipment (ICD-10-PCS; 2018-02-07)
PROC: F07M6FZ Therapeutic Exercise Treatment of Musculoskeletal System - Whole Body using Assistive, Adaptive, Supportive or Protective Equipment (ICD-10-PCS; 2018-02-08)
DX: A40.3 Sepsis due to Streptococcus pneumoniae (principal); J18.9 Pneumonia, unspecified organism; I50.42 Chronic combined systolic (congestive) and diastolic (congestive) heart failure; C90.00 Multiple myeloma not having achieved remission; I48.92 Unspecified atrial flutter; D61.818 Other pancytopenia; I11.0 Hypertensive heart disease with heart failure; I25.10 Atherosclerotic heart disease of native coronary artery without angina pectoris; R26.81 Unsteadiness on feet; I48.91 Unspecified atrial fibrillation; J44.9 Chronic obstructive pulmonary disease, unspecified; Z95.1 Presence of aortocoronary bypass graft; E11.9 Type 2 diabetes mellitus without complications; E78.5 Hyperlipidemia, unspecified; E78.00 Pure hypercholesterolemia, unspecified; D64.9 Anemia, unspecified; R07.89 Other chest pain; S02.2XXA Fracture of nasal bones, initial encounter for closed fracture; S00.03XA Contusion of scalp, initial encounter; W18.12XA Fall from or off toilet with subsequent striking against object, initial encounter; Y92.231 Patient bathroom in hospital as the place of occurrence of the external cause

== ENCOUNTER 2018-02-10 13:24 | Inpatient (IN) | payer MEDICARE, BC ==
[2018-02-10 13:24] VITALS: PULSE 168; BMI 18.8
--- NOTE | 2018-02-10 15:47 | ED PDOC ---
HPI: Chest Pain Time Seen by Provider: 02/10/18 13:30 Chief Complaint (Nursing): Chest Pain Chief Complaint (Provider): Chest Pain History Per: Patient History/Exam Limitations: no limitations Onset/Duration Of Symptoms: Days (1x) Current Symptoms Are (Timing): Still Present Quality: "Pain" Associated Symptoms: Syncope Additional Complaint(s): 72 year old female presents to the ED from [facility] complaining for elevated troponin and chest pain onset this morning. Reports she was admitted at [facility] one week ago for pneumonia and then transferred to TCU. Yesterday, the patient had atrial fibrillation with RVR and was treated. Then, the patient has a syncopal episode that was compounded by a head injury. Patient developed hematoma on the head as well as chest pain. She still has chest pain currently. PMD: Mayela Past Medical History Reviewed: Historical Data, Nursing Documentation, Vital Signs Vital Signs: Last Vital Signs Temp 97.4 F L 02/10/18 15:51 Pulse 43 L 02/10/18 16:05 Resp 18 02/10/18 15:51 BP 110/60 02/10/18 15:51 Pulse Ox 100 02/10/18 16:05 - Medical History PMH: Anemia, CHF, COPD, HTN, Hypercholesterolemia, Chronic Kidney Disease - Surgical History Surgical History: Appendectomy, CABG - Family History Family History: States: Unknown Family Hx - Immunization History Hx Tetanus Toxoid Vaccination: No Hx Influenza Vaccination: No Hx Pneumococcal Vaccination: No - Home Medications Home Medications: Ambulatory Orders Medication Instructions Recorded Allopurinol [Zyloprim] 100 mg PO DAILY 06/14/17 Brimonidine 0.2% [Alphagan 0.2% 5 ml OU HS 06/14/17 Opht] SITagliptin [Januvia] 25 mg PO DAILY #60 tab 11/04/17 Famotidine 20 mg PO DAILY 12/18/17 Ferrous Sulfate 325 mg PO TID 12/18/17 Simvastatin 20 mg PO DAILY 12/18/17 Aspirin [Ecotrin] 81 mg PO DAILY #30 tabec 01/04/18 Albuterol/Ipratropium [Duoneb 3 3 ml INH RQ6 PRN neb 02/07/18 mg/0.5 mg (3 ml) UD] Amiodarone Hydrochloride 100 mg PO BID tab 02/07/18 [Cordarone] Furosemide [Lasix] 20 mg PO DAILY tab 02/07/18 Insulin Human Regular [Novolin R] 0 unit SC ACHS unit 02/07/18 Nitroglycerin 2% [Nitro-Bid 2% 1 ea TOP Q6H fp 02/07/18 Oint] cefTRIAXone [Rocephin] 1 gm IVPB Q12H 9 Days vial 02/07/18 guaiFENesin [Robitussin] 100 mg PO QID PRN udc 02/07/18 Acetaminophen [Tylenol] 325 mg PO PRN PRN 02/10/18 Atorvastatin [Lipitor] 10 mg PO DAILY 02/10/18 Benzocaine/Menthol [Cepacol Sore 1 lozenge PO Q3H PRN MDD throat 02/10/18 Throat] Enoxaparin [Lovenox] 30 mg SQ DAILY 02/10/18 diltiaZEM [Cardizem] 60 mg PO Q8H 02/10/18 - Allergies Allergies/Adverse Reactions: Allergies Allergy/AdvReac Type Severity Reaction Status Date / Time No Known Allergies Allergy Verified 01/29/18 04:49 DEANN Risk Score for UA/NSTEMI - DEANN Risk Score Age > 64: YES 3 or more CAD Risk Factors: YES Known CAD (Stenosis greater than 50%): NO Aspirin use in past 7 days: YES Severe Angina: NO EKG ST changes greater than 0.5mm: NO Positive Cardiac Marker: NO DEANN Score: 3 Risk %: 13% Review of Systems ROS Statement: Except As Marked, All Systems Reviewed And Found Negative Cardiovascular: Positive for: Chest Pain Neurological: Positive for: Other (syncope) Physical Exam - Reviewed Nursing Documentation Reviewed: Yes Vital Signs Reviewed: Yes - Physical Exam Appears: Positive for: Non-toxic, No Acute Distress Head Exam: Positive for: ATRAUMATIC, NORMAL INSPECTION (hematoma present), NORMOCEPHALIC Skin: Positive for: Normal Color, Warm, Dry Eye Exam: Positive for: EOMI, Normal appearance, PERRL ENT: Positive for: Normal ENT Inspection Neck: Positive for: Normal, Painless ROM, Supple. Negative for: Decreased ROM Cardiovascular/Chest: Positive for: Regular Rate, Rhythm, Bradycardia Respiratory: Positive for: Normal Breath Sounds. Negative for: Decreased Breath Sounds, Accessory Muscle Use, Respiratory Distress Gastrointestinal/Abdominal: Positive for: Normal Exam, Bowel Sounds, Soft. Negative for: Tenderness, Guarding, Rebound Back: Positive for: Normal Inspection. Negative for: L CVA Tenderness, R CVA Tenderness Extremity: Positive for: Normal ROM. Negative for: Tenderness, Pedal Edema, Deformity Neurologic/Psych: Positive for: Alert, Oriented (x3). Negative for: Motor/ Sensory Deficits - ECG ECG: Positive for: Interpreted By Me, Viewed By Me ECG Rhythm: Positive for: Sinus Bradycardia. Negative for: Normal QRS, ST/T Changes Interpretation Of ECG: LVH, Left ventricular hypertrophy with QRS widening and repolarization abnormality Rate: 43 O2 Sat by Pulse Oximetry: 100 (RA) Pulse Ox Interpretation: Normal Medical Decision Making Medical Decision Making: Time: 134 Initial Impression: chest pain, elevated troponin Differential Diagnosis includes but is not limited to: CHF, NSTEMI Initial Plan: --EKG --BMP --Troponin I --CBC w/ Differential --PTT --Prothrombin Time --Chest One View --Aspirin 81mg --Aspirin 192mg --Dredge Pipe Installer --Reevaluation Labs reviewed this morning. Chest X-ray, EKG, and Aspirin was ordered. Time: [address] Reveles. Time: [address] Estrella and he agrees with current management. Scribe Attestation: Documented by Noah Godoy, acting as a scribe for Thom Amanda MD Provider Scribe Attestation: All medical record entries made by the Scribe were at my direction and personally dictated by me. I have reviewed the chart and agree that the record accurately reflects my personal performance of the history, physical exam, medical decision making, and the department course for this patient. I have also personally directed, reviewed, and agree with the discharge instructions and disposition. Disposition - Clinical Impression Clinical Impression: Acute chest pain, Congestive heart failure, Elevated troponin - Patient ED Disposition Is Patient to be Admitted: Yes Discussed With : Kyle Reveles Counseled Patient/Family Regarding: Studies Performed, Diagnosis, Need For Followup - Disposition Disposition Time: 13:50 Condition: FAIR - Pt Status Changed To: Hospital Disposition Of: Inpatient - Admit Certification Admit to Inpatient:: After my assessment, the patient will require hospitalization for at least two midnights. This is because of the severity of symptoms shown, intensity of services needed, and/or the medical risk in this patient being treated as an outpatient. - POA Present On Arrival: Falls Or Trauma
[2018-02-10] MEDS ORDERED: Benzocaine/Menthol (Cepacol) Lozenge PO PRN (16:08)
[2018-02-10] MEDS ORDERED: guaiFENesin 100 mg/5 ml Syrup UD PO PRN (16:08)
[2018-02-10] MEDS ORDERED: cefTRIAXone (Rocephin) 1 gm Inj IVPB SCH (16:15)
--- NOTE | 2018-02-10 16:31 | RAD ---
PROCEDURE: CHEST RADIOGRAPH, 1 VIEW HISTORY: chest pain COMPARISON: 02/10/2018 at 10:43 a.m. FINDINGS: LUNGS: Extensive left-sided opacity persists, unchanged. No right-sided opacity. PLEURA: Probable left pleural effusion. Minimal blunting right costophrenic angle may reflect small pleural effusion. No pneumothorax. CARDIOVASCULAR: Cardiomegaly. Status post CABG. There is mild congestive change. OSSEOUS STRUCTURES: No significant abnormalities. VISUALIZED UPPER ABDOMEN: Normal. OTHER FINDINGS: None. IMPRESSION: Extensive left-sided opacity. Probable left pleural effusion and possible tiny right pleural effusion. Congestive change.
[2018-02-10] MEDS: Nitroglycerin 2% Ointment Foilpak UD TOP SCH ×2 (17:04→21:28)
--- NOTE | 2018-02-10 17:22 | CP.PCM.CON ---
History of Present Illness - History of Present Illness History of Present Illness: 72 year old female with a history of CAD s/p CABG, HTN, DM, multiple myeloma on treatment, transferred from [facility] s/p fall. The patient is well known to me and had a recent hospitalization at [facility] for pneumonia and afib. In regard to her multiple myeloma, she has been receiving Velcade and Revlimid (reduced dosing). She had been on dexamethasone which was discontinued due to hyperglycemia complications. Past medical history: CAD, HTN, DM, multiple myeloma Past surgical history: CABG Family history: Denies hematologic and oncologic problems Social history: Denies tobacco, alcohol, and illicit drug use. Allergies: NKA Review of systems: All remaining review of systems including HEENT, cardiovascular, respiratory, gastrointestinal, genitourinary, musculoskeletal, dermatologic, neurologic, and psychiatric are negative unless mentioned in the HPI. Past Patient History - Infectious Disease Hx of Infectious Diseases: None - Past Medical History & Family History Past Medical History?: Yes - Past Social History Smoking Status: Never Smoked - CARDIAC Hx Congestive Heart Failure: Yes Hx Hypercholesterolemia: Yes Hx Hypertension: Yes - PULMONARY Hx Chronic Obstructive Pulmonary Disease (COPD): Yes - NEUROLOGICAL Hx Neurological Disorder: No - HEENT Hx HEENT Problems: Yes Hx Glaucoma: Yes - RENAL Hx Chronic Kidney Disease: Yes - ENDOCRINE/METABOLIC Hx Diabetes Mellitus Type 2: Yes - HEMATOLOGICAL/ONCOLOGICAL Hx Anemia: Yes - INTEGUMENTARY Hx Dermatological Problems: No - MUSCULOSKELETAL/RHEUMATOLOGICAL Hx Falls: No - GASTROINTESTINAL Hx Gastrointestinal Disorders: No - GENITOURINARY/GYNECOLOGICAL Hx Genitourinary Disorders: No - PSYCHIATRIC Hx Psychophysiologic Disorder: No Hx Substance Use: No - SURGICAL HISTORY Hx Appendectomy: Yes Hx Coronary Artery Bypass Graft: Yes - ANESTHESIA Hx Anesthesia: Yes Hx Anesthesia Reactions: No Hx Malignant Hyperthermia: No Meds Allergies/Adverse Reactions: Allergies Allergy/AdvReac Type Severity Reaction Status Date / Time No Known Allergies Allergy Verified 01/29/18 04:49 - Medications Medications: Current Medications Acetaminophen (Tylenol 325mg Tab) 325 mg PO Q4 PRN PRN Reason: Pain, Mild (1-3) Acetaminophen (Tylenol 325mg Tab) 325 mg PO Q4 PRN PRN Reason: Pain, Mild (1-3) Albuterol/Ipratropium (Duoneb 3 Mg/0.5 Mg (3 Ml) Ud) 3 ml INH RQ6 PRN PRN Reason: wheezing Allopurinol (Zyloprim) 100 mg PO DAILY [facility] Aspirin (Ecotrin) 81 mg PO DAILY EM Atorvastatin Calcium (Lipitor) 10 mg PO DAILY [facility] Benzocaine/Menthol (Cepacol Sore Throat) 1 figueroa PO Q3H PRN PRN Reason: Sore Throat Brimonidine Tartrate (Alphagan 0.2% Opht) 1 drop OU HS EM Docusate Sodium (Colace) 100 mg PO BID PRN PRN Reason: Constipation Ferrous Sulfate (Feosol) 325 mg PO TID EM Guaifenesin (Robitussin) 100 mg PO QID PRN PRN Reason: cough Ceftriaxone Sodium 1 gm/ (Sodium Chloride) 100 mls @ 100 mls/hr IVPB Q12 EM Stop: 02/16/20 21:01 Insulin Human Regular (Humulin R) 0 units IVPB ACHS EM PRN Reason: Protocol Nitroglycerin (Nitro-Bid 2% Oint) 1 ea TOP Q6H [facility] Pantoprazole Sodium (Protonix Ec Tab) 40 mg PO DAILY [facility] Sitagliptin Phosphate (Januvia) 25 mg PO DAILY [facility] Physical Exam - Head Exam Additional comments: hematoma over forehead with paranasal swelling - Eye Exam Eye Exam: Normal appearance - ENT Exam ENT Exam: Mucous Membranes Dry - Respiratory Exam Respiratory Exam: NORMAL BREATHING PATTERN - Cardiovascular Exam Cardiovascular Exam: +S1, +S2 - GI/Abdominal Exam GI & Abdominal Exam: Normal Bowel Sounds Results - Vital Signs Recent Vital Signs: Last Vital Signs Temp 97.4 F L 02/10/18 15:51 Pulse 43 L 02/10/18 16:27 Resp 18 02/10/18 15:51 BP 110/60 02/10/18 15:51 Pulse Ox 100 02/10/18 16:27 Assessment & Plan (1) Multiple myeloma Assessment and Plan: on outpatient Velcade and Revlimid repeat CBC w/diff, renal function in AM Thank you for this interesting consult. Status: Acute
[2018-02-10] MEDS: Insulin Regular 100 units/ml IVPB SCH ×2 (17:53→22:00)
--- NOTE | 2018-02-10 18:15 | CP.PCM.HP ---
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 Rate was controlled with 2 doses of 10mg IV Cardizem. After about 7 hrs, patient fell in the bathroom while urinating. Patient claimed she didn't know what happened and sustained a huge frontal contussion hematoma. CT scan did not show intracerebral bleed but had nasal bone fracture. This morning she complained of chest pain. There was no acute ischemic changes in EKG but Troponin was significantly elevated. Patient was brought down to ER prior to admission to telemetry. I spoke with Dr Dyan Hopkins who was covering for Dr Nikko Pedro, patient's automobile engine assembler at [facility]. Patient's requested that she be transferred back to [facility] since her automobile engine assembler knew her better. He advised that patient is better off staying at [facility] since it would be risky transferring her. Present on Admission - Present on Admission Any Indicators Present on Admission: No History of DVT/PE: No History of Uncontrolled Diabetes: No Urinary Catheter: No Decubitus Ulcer Present: No Review of Systems - Review of Systems All systems: reviewed and no additional remarkable complaints except (aside from those mentioned above, 12 point system review were negative by me) Past Patient History - Infectious Disease Hx of Infectious Diseases: None - Tetanus Immunizations Tetanus Immunization: Unknown - Past Medical History & Family History Past Medical History?: Yes - Past Social History Smoking Status: Never Smoked Chewing Tobacco Use: No Cigar Use: No Alcohol: None Drugs: Denies Home Situation {Lives}: With Family - CARDIAC Hx Congestive Heart Failure: Yes Hx Hypercholesterolemia: Yes Hx Hypertension: Yes - PULMONARY Hx Chronic Obstructive Pulmonary Disease (COPD): Yes - NEUROLOGICAL Hx Neurological Disorder: No - HEENT Hx HEENT Problems: Yes Hx Glaucoma: Yes - RENAL Hx Chronic Kidney Disease: Yes - ENDOCRINE/METABOLIC Hx Diabetes Mellitus Type 2: Yes - HEMATOLOGICAL/ONCOLOGICAL Hx Anemia: Yes - INTEGUMENTARY Hx Dermatological Problems: No - MUSCULOSKELETAL/RHEUMATOLOGICAL Hx Falls: No - GASTROINTESTINAL Hx Gastrointestinal Disorders: No - GENITOURINARY/GYNECOLOGICAL Hx Genitourinary Disorders: No - PSYCHIATRIC Hx Psychophysiologic Disorder: No Hx Substance Use: No - SURGICAL HISTORY Hx Appendectomy: Yes Hx Coronary Artery Bypass Graft: Yes - ANESTHESIA Hx Anesthesia: Yes Hx Anesthesia Reactions: No Hx Malignant Hyperthermia: No Meds Allergies/Adverse Reactions: Allergies Allergy/AdvReac Type Severity Reaction Status Date / Time No Known Allergies Allergy Verified 01/29/18 04:49 Physical Exam - Constitutional Appears: No Acute Distress - Head Exam Head Exam: absent: NORMAL INSPECTION (frontal hematoma and swollen nasal bridge) - Eye Exam Eye Exam: PERRL. absent: Scleral icterus - ENT Exam ENT Exam: Mucous Membranes Moist - Neck Exam Neck exam: Negative for: Meningismus - Respiratory Exam Respiratory Exam: Rales, Rhonchi (more on the left ). absent: Wheezes, Respiratory Distress - Cardiovascular Exam Cardiovascular Exam: Bradycardia, +S1, +S2 - GI/Abdominal Exam GI & Abdominal Exam: Soft. absent: Tenderness - Rectal Exam Rectal Exam: Deferred - Neurological Exam Neurological exam: Alert, Oriented x3 - Psychiatric Exam Psychiatric exam: Normal Affect - Skin Skin Exam: Dry, Intact Results - Vital Signs Recent Vital Signs: Last Vital Signs Temp 97.4 F L 02/10/18 15:51 Pulse 43 L 02/10/18 16:27 Resp 18 02/10/18 15:51 BP 110/60 02/10/18 15:51 Pulse Ox 100 02/10/18 16:27 Assessment & Plan - Assessment and Plan (Free Text) Assessment: 72 yo female with history of CAD, CHF, COPD, MM, DM2 and new onset AFib admitted to TCU on 02/07/2018 as a transfer from [facility] for continuation of IV antibiotics because of Strept Pneumoniae Bacteremia and Pneumonia had DATA ENTRY SUPERVISOR last night because of rapid AFib. Rate was controlled with 2 doses of 10mg IV Cardizem. After about 7 hrs, patient fell in the bathroom while urinating. Patient claimed she didn't know what happened and sustained a huge frontal contussion hematoma. CT scan did not show intracerebral bleed but had nasal bone fracture. This morning she complained of chest pain. There was no acute ischemic changes in EKG but Troponin was significantly elevated. Patient was brought down to ER prior to admission to telemetry. I spoke with Dr Dyan Hopkins who was covering for Dr Nikko Pedro, patient's automobile engine assembler at [facility]. Patient's requested that she be transferred back to [facility] since her automobile engine assembler knew her better. He advised that patient is better off staying at [facility] since it would be risky transferring her. (1) Chest pain 1st set of Troponin was elevated. Previous Troponins at [facility] were also elevated EKG no acute ischemic changes when compared to previous chest pain probably non-cardiac tech serial Troponins and EKG cardiology consult with Dr Estrella (2) Fall probably secondary vasovagal changes or sudden dropped in heart rate. claimed that it happened recently at home when she passed out with HR at 35/ min. When EMS arrived her HR was back to normal. patient probably need pacemaker will hold Cardizem unless HR is > 130/min (3) Afib presently in sinus with normal rate. hold Cardizem. cardiology consult with Dr Estrella (4) Bacteremia Penicillin resistant Strep Pneumoniae sensitive to Ceftriaxone continue IV Rocephin Dr Pond on ID consult (5) Chronic congestive heart failure Amiodarone on hold continue Lasix 20mg PO daily (6) Multiple myeloma oncology consult with Dr Mosley
[2018-02-10] MEDS: Albuterol-Ipratrop 3 mg / 0.5 (3 ml) UD INH PRN (18:26)
[2018-02-10] MEDS: Brimonidine 0.2% 50 DROP/5 ML BOTTLE OU SCH (21:24)
[2018-02-11] MEDS: Nitroglycerin 2% Ointment Foilpak UD TOP SCH ×4 (04:09→21:46)
[2018-02-11 07:03] LABS: BASO % 0.6 % (0.0-2.0); EOS % 0.1 % (0.0-4.0); HEMOGLOBIN 8.8 g/dL (12.0-16.0); LYMPH # 0.8 K/uL (1.0-4.3); LYMPH % 9.5 % (20.0-40.0); MEAN CELL VOLUME 97.4 fl (81.0-99.0); MEAN CORPUSCULAR HEMOGLOBIN 32.9 pg (27.0-31.0); MEAN CORPUSCULAR HGB CONC 33.8 g/dL (33.0-37.0); MEAN PLATELET VOLUME 9.5 fl (7.2-11.7); MONO # 0.2 K/uL (0.0-0.8); MONO % 2.6 % (0.0-10.0); NEUT # 6.9 K/uL (1.8-7.0); NEUT % 87.2 % (50.0-75.0); NRBC % 0.1 % (0.0-0.0); PLATELET COUNT 133 K/uL (130-400); RBC 2.68 Mil/uL (3.80-5.20); WHITE BLOOD COUNT 7.9 K/uL (4.8-10.8)
[2018-02-11 07:14] LABS: CALCIUM 8.5 mg/dL (8.4-10.2)
[2018-02-11 07:23] LABS: TROPONIN I 0.111 ng/mL (0.00-0.120)
[2018-02-11] MEDS: Albuterol-Ipratrop 3 mg / 0.5 (3 ml) UD INH PRN ×2 (09:01→21:17)
[2018-02-11] MEDS: Pantoprazole 40 mg EC Tab PO SCH (09:47)
[2018-02-11] MEDS: Insulin Regular 100 units/ml IVPB SCH ×4 (09:47→21:43)
--- NOTE | 2018-02-11 10:27 | CP.PCM.CON ---
History of Present Illness - History of Present Illness History of Present Illness: 72 years old female with hx of CHF, COPD, CAD and Multiple Myeloma who was admitted at the [facility] on 01/29/18 and diagnosed with Severe Sepsis with Strep. pneumoniae Bacteremia and Acute on chronic CHF with Pneumonia. While there she developed a new unset of Atrial Fibrillation with rapid response, was transferred to the ICU and treated. At present she still has productive cough, on and off palpitation, mild SOB on exertion. EKG: Normal Sinus rhythm telemetry: NSR @ 80 BPM pt fell yesterday injuring her forehead and anterior chest wall pt c/o pain at sternum tender to palpate worse with movement Troponin was elevated PMH: Anemia; CHF systolic diastolic dysfunction; COPD; HTN; HLD; CAD; DM II; Multiple Myeloma PSH: CABG; Appendectomy Past Patient History - Infectious Disease Hx of Infectious Diseases: None - Tetanus Immunizations Tetanus Immunization: Unknown - Past Medical History & Family History Past Medical History?: Yes - Past Social History Smoking Status: Never Smoked - CARDIAC Hx Congestive Heart Failure: Yes Hx Hypercholesterolemia: Yes Hx Hypertension: Yes - PULMONARY Hx Chronic Obstructive Pulmonary Disease (COPD): Yes - NEUROLOGICAL Hx Neurological Disorder: No - HEENT Hx HEENT Problems: Yes Hx Glaucoma: Yes - RENAL Hx Chronic Kidney Disease: Yes - ENDOCRINE/METABOLIC Hx Diabetes Mellitus Type 2: Yes - HEMATOLOGICAL/ONCOLOGICAL Hx Anemia: Yes - INTEGUMENTARY Hx Dermatological Problems: No - MUSCULOSKELETAL/RHEUMATOLOGICAL Hx Falls: No - GASTROINTESTINAL Hx Gastrointestinal Disorders: No - GENITOURINARY/GYNECOLOGICAL Hx Genitourinary Disorders: No - PSYCHIATRIC Hx Psychophysiologic Disorder: No Hx Substance Use: No - SURGICAL HISTORY Hx Appendectomy: Yes Hx Coronary Artery Bypass Graft: Yes - ANESTHESIA Hx Anesthesia: Yes Hx Anesthesia Reactions: No Hx Malignant Hyperthermia: No Meds Allergies/Adverse Reactions: Allergies Allergy/AdvReac Type Severity Reaction Status Date / Time No Known Allergies Allergy Verified 01/29/18 04:49 - Medications Medications: Current Medications Acetaminophen (Tylenol 325mg Tab) 325 mg PO Q4 PRN PRN Reason: Pain, Mild (1-3) Last Admin: 02/11/18 04:07 Dose: 325 mg Albuterol/Ipratropium (Duoneb 3 Mg/0.5 Mg (3 Ml) Ud) 3 ml INH RQ6 PRN PRN Reason: wheezing Last Admin: 02/11/18 09:01 Dose: 3 ml Allopurinol (Zyloprim) 100 mg PO DAILY [facility] Last Admin: 02/11/18 09:49 Dose: 100 mg Aspirin (Ecotrin) 81 mg PO DAILY [facility] Last Admin: 02/11/18 09:47 Dose: 81 mg Atorvastatin Calcium (Lipitor) 10 mg PO DAILY [facility] Last Admin: 02/11/18 09:47 Dose: 10 mg Benzocaine/Menthol (Cepacol Sore Throat) 1 figueroa PO Q3H PRN PRN Reason: Sore Throat Last Admin: 02/10/18 17:57 Dose: 1 figueroa Brimonidine Tartrate (Alphagan 0.2% Opht) 1 drop OU HS [facility] Last Admin: 02/10/18 21:24 Dose: 1 drop Docusate Sodium (Colace) 100 mg PO BID PRN PRN Reason: Constipation Ferrous Sulfate (Feosol) 325 mg PO TID [facility] Last Admin: 02/11/18 09:47 Dose: 325 mg Furosemide (Lasix) 20 mg PO DAILY [facility] Last Admin: 02/11/18 09:45 Dose: 20 mg Guaifenesin (Robitussin) 100 mg PO QID PRN PRN Reason: cough Ceftriaxone Sodium 1 gm/ (Sodium Chloride) 100 mls @ 100 mls/hr IVPB Q12 [facility] Stop: 02/16/20 21:01 Last Admin: 02/11/18 09:49 Dose: 100 mls/hr Insulin Human Regular (Humulin R) 0 units IVPB ACHS [facility] PRN Reason: Protocol Last Admin: 02/11/18 09:47 Dose: Not Given Nitroglycerin (Nitro-Bid 2% Oint) 1 ea TOP Q6H [facility] Last Admin: 02/11/18 04:09 Dose: 1 ea Pantoprazole Sodium (Protonix Ec Tab) 40 mg PO DAILY [facility] Last Admin: 02/11/18 09:47 Dose: 40 mg Sitagliptin Phosphate (Januvia) 25 mg PO DAILY [facility] Last Admin: 02/11/18 09:45 Dose: 25 mg Physical Exam - Constitutional Appears: Well - Respiratory Exam Respiratory Exam: NORMAL BREATHING PATTERN - Cardiovascular Exam Cardiovascular Exam: REGULAR RHYTHM Results - Vital Signs Recent Vital Signs: Last Vital Signs Temp 98.2 F 02/11/18 07:48 Pulse 73 02/11/18 07:48 Resp 18 02/11/18 07:48 BP 138/69 02/11/18 09:45 Pulse Ox 99 02/11/18 07:48 - Labs Result Diagrams: 02/11/18 06:19 02/11/18 06:19 Labs: Laboratory Results - last 24 hr 02/10/18 02/11/18 02/11/18 19:30 06:19 06:19 WBC 7.9 RBC 2.68 L Hgb 8.8 L Hct 26.1 L MCV 97.4 MCH 32.9 H MCHC 33.8 RDW 19.0 H Plt Count 133 MPV 9.5 Neut % (Auto) 87.2 H Lymph % (Auto) 9.5 L [place] % (Auto) 2.6 Eos % (Auto) 0.1 Baso % (Auto) 0.6 Neut # (Auto) 6.9 Lymph # (Auto) 0.8 L [place] # (Auto) 0.2 Eos # (Auto) 0.0 Baso # (Auto) 0.0 Sodium 140 Potassium 4.1 Chloride 102 Carbon Dioxide 27 Anion Gap 15 BUN 25 H Creatinine 1.2 Est GFR ( Amer) 53 Est GFR (Non-Af Amer) 44 Random Glucose 159 H Calcium 8.5 Troponin I 0.1320 H* 0.1110 Assessment & Plan (1) Acute chest pain Assessment and Plan: The chest pain appears to be non cardiac secondary to the fall Status: Acute (2) Elevated troponin Assessment and Plan: Most likely secondary to muscle contusion from the fall Status: Acute (3) Anemia Status: Acute (4) Chest pain Status: Acute
[2018-02-11 10:40] LABS: LYMPHOCYTE 7 % (20-50); MONOCYTE 3 % (0-10); NEUTROPHIL 90 % (42-75); PLATELET ESTIMATE SLIGHTLY DECREASED (NORMAL); TOTAL CELLS COUNTED 100
[2018-02-11 10:41] LABS: ANISOCYTOSIS SLIGHT; LARGE PLATELETS PRESENT; OVALOCYTES SLIGHT
--- NOTE | 2018-02-11 12:05 | CP.PCM.PN ---
Subjective - Date & Time of Evaluation Date of Evaluation: 02/11/18 Time of Evaluation: 10:30 - Subjective Subjective: Patient seen and examined. Denied any complaint. Objective - Vital Signs/Intake and Output Vital Signs (last 24 hours): Temp Pulse Resp BP Pulse Ox 98.2 F 62 18 138/69 99 02/11/18 07:48 02/11/18 09:00 02/11/18 07:48 02/11/18 09:45 02/11/18 07:48 - Medications Medications: Current Medications Acetaminophen (Tylenol 325mg Tab) 325 mg PO Q4 PRN PRN Reason: Pain, Mild (1-3) Last Admin: 02/11/18 04:07 Dose: 325 mg Albuterol/Ipratropium (Duoneb 3 Mg/0.5 Mg (3 Ml) Ud) 3 ml INH RQ6 PRN PRN Reason: wheezing Last Admin: 02/11/18 09:01 Dose: 3 ml Allopurinol (Zyloprim) 100 mg PO DAILY [facility] Last Admin: 02/11/18 09:49 Dose: 100 mg Aspirin (Ecotrin) 81 mg PO DAILY [facility] Last Admin: 02/11/18 09:47 Dose: 81 mg Atorvastatin Calcium (Lipitor) 10 mg PO DAILY [facility] Last Admin: 02/11/18 09:47 Dose: 10 mg Benzocaine/Menthol (Cepacol Sore Throat) 1 figueroa PO Q3H PRN PRN Reason: Sore Throat Last Admin: 02/10/18 17:57 Dose: 1 figueroa Brimonidine Tartrate (Alphagan 0.2% Opht) 1 drop OU HS [facility] Last Admin: 02/10/18 21:24 Dose: 1 drop Docusate Sodium (Colace) 100 mg PO BID PRN PRN Reason: Constipation Ferrous Sulfate (Feosol) 325 mg PO TID [facility] Last Admin: 02/11/18 09:47 Dose: 325 mg Furosemide (Lasix) 20 mg PO DAILY [facility] Last Admin: 02/11/18 09:45 Dose: 20 mg Guaifenesin (Robitussin) 100 mg PO QID PRN PRN Reason: cough Ceftriaxone Sodium 1 gm/ (Sodium Chloride) 100 mls @ 100 mls/hr IVPB Q12 [facility] Stop: 02/16/20 21:01 Last Admin: 02/11/18 09:49 Dose: 100 mls/hr Insulin Human Regular (Humulin R) 0 units IVPB ACHS [facility] PRN Reason: Protocol Last Admin: 02/11/18 09:47 Dose: Not Given Nitroglycerin (Nitro-Bid 2% Oint) 1 ea TOP Q6H [facility] Last Admin: 02/11/18 04:09 Dose: 1 ea Pantoprazole Sodium (Protonix Ec Tab) 40 mg PO DAILY [facility] Last Admin: 02/11/18 09:47 Dose: 40 mg Sitagliptin Phosphate (Januvia) 25 mg PO DAILY [facility] Last Admin: 02/11/18 09:45 Dose: 25 mg - Labs Labs: 02/11/18 06:19 02/11/18 06:19 - Constitutional Appears: No Acute Distress - Head Exam Head Exam: absent: NORMAL INSPECTION (frontal hematoma with periorbital ecchymoses and nasal bridge swelling) - Eye Exam Eye Exam: absent: Scleral icterus - ENT Exam ENT Exam: Mucous Membranes Moist - Neck Exam Neck Exam: absent: Meningismus - Respiratory Exam Respiratory Exam: Rales, Rhonchi. absent: Wheezes, Respiratory Distress - Cardiovascular Exam Cardiovascular Exam: REGULAR RHYTHM, +S1, +S2 - GI/Abdominal Exam GI & Abdominal Exam: Soft. absent: Tenderness - Rectal Exam Rectal Exam: Deferred - Neurological Exam Neurological Exam: Alert, Oriented x3 - Psychiatric Exam Psychiatric exam: Normal Affect - Skin Skin Exam: Dry, Intact Assessment and Plan - Assessment and Plan (Free Text) Assessment: 72 yo female with history of CAD, CHF, COPD, MM, DM2 and new onset AFib admitted to TCU on 02/07/2018 as a transfer from [facility] for continuation of IV antibiotics because of Strept Pneumoniae Bacteremia and Pneumonia had COREM[employer] PIPE last night because of rapid AFib. Rate was controlled with 2 doses of 10mg IV Cardizem. After about 7 hrs, patient fell in the bathroom while urinating. Patient claimed she didn't know what happened and sustained a huge frontal contussion hematoma. CT scan did not show intracerebral bleed but had nasal bone fracture. This morning she complained of chest pain. There was no acute ischemic changes in EKG but Troponin was significantly elevated. Patient was brought down to ER prior to admission to telemetry. I spoke with Dr Dyna Hopkins who was covering for Dr Nikko Pedro, patient's closing agent at [facility]. Patient's requested that she be transferred back to [facility] since her closing agent knew her better. He advised that patient is better off staying at [facility] since it would be risky transferring her. would try to talk with Dr Pedro when arrive (1) Chest pain Troponins trending down with last set within normal range. chest pain non-cardiac and secondary to trauma (2) Fall probably secondary vasovagal changes or sudden dropped in heart rate. claimed that it happened at home when she passed out with HR at 35/min. When EMS arrived her HR was back to normal. patient probably need pacemaker Cardizem and Amiodarone DC'd (3) Afib presently in sinus with normal rate. Cardizem DC'd cardiology consult with Dr Estrella (4) Bacteremia Penicillin resistant Strep Pneumoniae sensitive to Ceftriaxone continue IV Ceftriaxone Dr Pond on ID consult (5) Chronic congestive heart failure Amiodarone DC'd continue Lasix 20mg PO daily (6) Multiple myeloma oncology consult with Dr Mosley (7) DVT prophylaxis venodyne boots while in bed
--- NOTE | 2018-02-11 12:48 | CP.PCM.CON ---
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 Rate was controlled with 2 doses of 10mg IV Cardizem. After about 7 hrs, patient fell in the bathroom while urinating She sustained a huge frontal contusion/ hematoma. CT scan did not show intracerebral bleed but had nasal bone fracture. Subsequently she complained of chest pain. There was no acute ischemic changes in EKG but Troponin was significantly elevated. Patient was brought down to ER prior to admission to telemetry. discussed events with at the bedside IV antibiotics reordered Has left infiltrate / effusion Pulm eval recommended Past medical history: CAD, HTN, DM, multiple myeloma Past surgical history: CABG Family history: Denies hematologic and oncologic problems Social history: Denies tobacco, alcohol, and illicit drug use. Allergies: NKA Review of systems: All remaining review of systems including HEENT, cardiovascular, respiratory, gastrointestinal, genitourinary, musculoskeletal, dermatologic, neurologic, and psychiatric are negative unless mentioned in the HPI. Review of Systems - Review of Systems All systems: reviewed and no additional remarkable complaints except - Constitutional Constitutional: As Per HPI - EENT Eyes: absent: As Per HPI, Blind Spots, Blurred Vision, Change in Vision, Decreased Night Vision, Diplopia, Discharge, Dry Eye, Exophthalmos, Floaters, Irritation, Itchy Eyes, Loss of Peripheral Vision, Pain, Photophobia, Requires Corrective Lenses, Sees Flashes, Spots in Vision, Tunnel Vision, Other Visual Disturbances, Loss of Vision, Other Ears: absent: As Per HPI, Decreased Hearing, Ear Discharge, Ear Pain, Tinnitus, Abnormal Hearing, Disequilibrium, Dizziness, Other Nose/Mouth/Throat: absent: As Per HPI, Epistaxis, Nasal Congestion, Nasal Discharge, Nasal Obstruction, Nasal Trauma, Nose Pain, Post Nasal Drip, Sinus Pain, Sinus Pressure, Bleeding Gums, Change in Voice, Dental Pain, Dry Mouth, Dysphagia, Halitosis, Hoarsness, Lip Swelling, Mouth Lesions, Mouth Pain, Odynophagia, Sore Throat, Throat Swelling, Tongue Swelling, Facial Pain, Neck Pain, Neck Mass, Other - Breasts Breasts: absent: As Per HPI, Change in Shape, Mass, Pain, Nipple Discharge, Nipple Inversion, Skin Changes, Swelling, Other - Cardiovascular Cardiovascular: As Per HPI - Respiratory Respiratory: As Per HPI, Cough, Dyspnea - Gastrointestinal Gastrointestinal: absent: As Per HPI, Abdominal Pain, Belching, Bloating, Change in Bowel Habits, Change in Stool Character, Coffee Ground Emesis, Constipation, Cramping, Diarrhea, Dyspepsia, Dysphagia, Early Satiety, Excessive Flatus, Fecal Incontinence, Heartburn, Hematemesis, Hematochezia, Loose Stools, Melena, Nausea, Odynophagia, Temesmus, Vomiting, Other - Genitourinary Genitourinary: absent: As Per HPI, Change in Urinary Stream, Difficulty Urinating, Dysuria, Flank Pain, Hematuria, Pyuria, Nocturia, Urinary Incontinence, Urinary Frequency, Urinary Hesitance, Urinary Urgency, Voiding Freq/Small Amts, Freq UTI, Hx Renal/Bladder Calculi, Hx /Renal Surgery, Bladder Distension, Other - Reproductive: Female Reproductive:Female: absent: As Per HPI, Amenorrhea, Amenorrhea/ Control, Currently Menstual, Cycle <21 Days, Cycle >35 Days, Cycle Variable, Menses 1-7 Days, Menses >/= 8 Days, Menses Variable, Cycle > 4 Weeks Between, No Menses for 6 Months, Heavy Menses, Light Menses, Normal Menses, Spotting Between Cycles , S/P Hysterectomy, Menopausal, Post Menopausal, Premenarche, Abnormal Vaginal Bleeding, Dysmenorrhea, Dyspareunia, Genital Lesions, Genital Pruritis, Pelvic Pain, Prolapse Symptoms, Sexual Dysfunction, Vaginal Discharge, Vaginal Dryness , Vaginal Odor, Vaginal Pruritis, Other - Menstruation Menstruation: absent: As Per HPI, Amenorrhea, Amenorrhea/ Control, Currently Menstual, Cycle <21 Days, Cycle >35 Days, Cycle Variable, Menses 1-7 Days, Menses >/= 8 Days, Menses Variable, Cycle > 4 Weeks Between, No Menses for 6 Months, Heavy Menses, Light Menses, Normal Menses, Spotting Between Cycles , S/P Hysterectomy, Menopausal, Post Menopausal, Premenarche, Abnormal Vaginal Bleeding, Dysmenorrhea, Other - Musculoskeletal Musculoskeletal: absent: As Per HPI, Abnormal Gait, Arthralgias, Atrophy, Back Pain, Deformity, Joint Swelling, Limited Range of Motion, Loss of Height, Muscle Cramps, Muscle Weakness, Myalgias, Neck Pain, Numbness, Radiating Pain into Limb, Stiffness, Tingling, Other - Integumentary Integumentary: absent: As Per HPI, Acne, Alopecia, Bleeding Lesions, Change in Hair, Change in Nails, Change in Pigmentation, Changing Lesions, Dry Skin, Erythema, Furuncle, Hirsutism, Lesions, New Lesions, Non-Healing Lesions, Photosensitivity, Pruritus, Rash, Skin Pain, Skin Ulcer, Sores, Striae, Swelling , Unusual Bruising, Wounds, Jaundice, Other - Neurological Neurological: absent: As Per HPI, Abnormal Gait, Abnormal Hearing, Abnormal Movements, Abnormal Speech, Behavioral Changes, Burning Sensations, Confusion, Convulsions, Disequilibrium, Dizziness, Numbness, Focal Weakness, Frequent Falls , Headaches, Lack of Coordination, Loss of Vision, Memory Loss, Paresthesias, Radicular Pain, Restless Legs, Sensory Deficit, Syncope, Tingling, Tremor, Vertigo, Weakness, Other Visual Disturbances, Other - Psychiatric Psychiatric: absent: As Per HPI, Abnormal Sleep Pattern, Anhedonia, Anxiety, Auditory Hallucinations, Behavioral Changes, Change in Appetite, Change in Libido, Confusion, Depression, Difficulty Concentrating, Hallucinations, Homicidal Ideation, Hopelessness, Irritability, Memory Loss, Mood Swings, Panic Attacks, Paranoia, Suicidal Ideation, Visual Hallucinations, Tactile Hallucinations, Other - Endocrine Endocrine: absent: As Per HPI, Change in Body Appearance, Change in Libido, Cold Intolorance, Deepening of Voice, Excessive Sweating, Fatigue, Flushing, Heat Intolorance, Increase in Ring/Shoe/Hat Size, Palpitations, Polydipsia, Polyphagia, Polyuria, Other - Hematologic/Lymphatic Hematologic: absent: As Per HPI, Easy Bleeding, Easy Bruising, Lymphadenopathy, Other Past Patient History - Infectious Disease Hx of Infectious Diseases: None - Tetanus Immunizations Tetanus Immunization: Unknown - Past Medical History & Family History Past Medical History?: Yes - Past Social History Smoking Status: Never Smoked - CARDIAC Hx Congestive Heart Failure: Yes Hx Hypercholesterolemia: Yes Hx Hypertension: Yes - PULMONARY Hx Chronic Obstructive Pulmonary Disease (COPD): Yes - NEUROLOGICAL Hx Neurological Disorder: No - HEENT Hx HEENT Problems: Yes Hx Glaucoma: Yes - RENAL Hx Chronic Kidney Disease: Yes - ENDOCRINE/METABOLIC Hx Diabetes Mellitus Type 2: Yes - HEMATOLOGICAL/ONCOLOGICAL Hx Anemia: Yes - INTEGUMENTARY Hx Dermatological Problems: No - MUSCULOSKELETAL/RHEUMATOLOGICAL Hx Falls: No - GASTROINTESTINAL Hx Gastrointestinal Disorders: No - GENITOURINARY/GYNECOLOGICAL Hx Genitourinary Disorders: No - PSYCHIATRIC Hx Psychophysiologic Disorder: No Hx Substance Use: No - SURGICAL HISTORY Hx Appendectomy: Yes Hx Coronary Artery Bypass Graft: Yes - ANESTHESIA Hx Anesthesia: Yes Hx Anesthesia Reactions: No Hx Malignant Hyperthermia: No Meds Allergies/Adverse Reactions: Allergies Allergy/AdvReac Type Severity Reaction Status Date / Time No Known Allergies Allergy Verified 01/29/18 04:49 - Medications Medications: Current Medications Acetaminophen (Tylenol 325mg Tab) 325 mg PO Q4 PRN PRN Reason: Pain, Mild (1-3) Last Admin: 02/11/18 04:07 Dose: 325 mg Albuterol/Ipratropium (Duoneb 3 Mg/0.5 Mg (3 Ml) Ud) 3 ml INH RQ6 PRN PRN Reason: wheezing Last Admin: 02/11/18 09:01 Dose: 3 ml Allopurinol (Zyloprim) 100 mg PO DAILY [facility] Last Admin: 02/11/18 09:49 Dose: 100 mg Aspirin (Ecotrin) 81 mg PO DAILY [facility] Last Admin: 02/11/18 09:47 Dose: 81 mg Atorvastatin Calcium (Lipitor) 10 mg PO DAILY [facility] Last Admin: 02/11/18 09:47 Dose: 10 mg Benzocaine/Menthol (Cepacol Sore Throat) 1 figueroa PO Q3H PRN PRN Reason: Sore Throat Last Admin: 02/10/18 17:57 Dose: 1 figueroa Brimonidine Tartrate (Alphagan 0.2% Opht) 1 drop OU HS [facility] Last Admin: 02/10/18 21:24 Dose: 1 drop Docusate Sodium (Colace) 100 mg PO BID PRN PRN Reason: Constipation Ferrous Sulfate (Feosol) 325 mg PO TID [facility] Last Admin: 02/11/18 09:47 Dose: 325 mg Furosemide (Lasix) 20 mg PO DAILY [facility] Last Admin: 02/11/18 09:45 Dose: 20 mg Guaifenesin (Robitussin) 100 mg PO QID PRN PRN Reason: cough Ceftriaxone Sodium 1 gm/ (Sodium Chloride) 100 mls @ 100 mls/hr IVPB Q12 [facility] Stop: 02/16/20 21:01 Last Admin: 02/11/18 09:49 Dose: 100 mls/hr Insulin Human Regular (Humulin R) 0 units IVPB ACHS [facility] PRN Reason: Protocol Last Admin: 02/11/18 09:47 Dose: Not Given Nitroglycerin (Nitro-Bid 2% Oint) 1 ea TOP Q6H [facility] Last Admin: 02/11/18 04:09 Dose: 1 ea Pantoprazole Sodium (Protonix Ec Tab) 40 mg PO DAILY [facility] Last Admin: 02/11/18 09:47 Dose: 40 mg Sitagliptin Phosphate (Januvia) 25 mg PO DAILY [facility] Last Admin: 02/11/18 09:45 Dose: 25 mg Physical Exam - Constitutional Appears: No Acute Distress, Chronically Ill - Head Exam Head Exam: NORMOCEPHALIC. absent: ATRAUMATIC Additional comments: + contusion / hematoma to forehead Nose - Eye Exam Eye Exam: PERRL. absent: Scleral icterus - ENT Exam ENT Exam: Mucous Membranes Dry - Neck Exam Neck exam: Negative for: Lymphadenopathy - Respiratory Exam Respiratory Exam: Decreased Breath Sounds, Rhonchi - Cardiovascular Exam Cardiovascular Exam: Irregular Rhythm, REGULAR RHYTHM, +S1, +S2 - GI/Abdominal Exam GI & Abdominal Exam: Diminished Bowel Sounds - Rectal Exam Rectal Exam: Deferred - Exam Exam: NORMAL INSPECTION - Extremities Exam Extremities exam: Positive for: pedal pulses present. Negative for: calf tenderness, pedal edema - Back Exam Back exam: absent: CVA tenderness (L), CVA tenderness (R) - Neurological Exam Neurological exam: Alert, CN II-XII Intact, Oriented x3, Reflexes Normal - Psychiatric Exam Psychiatric exam: Depressed - Skin Skin Exam: Dry Results - Vital Signs Recent Vital Signs: Last Vital Signs Temp 97.7 F 02/11/18 12:04 Pulse 78 02/11/18 12:04 Resp 18 02/11/18 12:04 BP 143/70 02/11/18 12:04 Pulse Ox 100 02/11/18 12:04 - Labs Result Diagrams: 02/11/18 06:19 02/11/18 06:19 Labs: Laboratory Results - last 24 hr 02/10/18 02/10/18 02/10/18 17:28 19:30 20:57 WBC RBC Hgb Hct MCV MCH MCHC RDW Plt Count MPV Neut % (Auto) Lymph % (Auto) Pitt % (Auto) Eos % (Auto) Baso % (Auto) Neut # (Auto) Lymph # (Auto) Pitt # (Auto) Eos # (Auto) Baso # (Auto) Neutrophils % (Manual) Lymphocytes % (Manual) Monocytes % (Manual) Platelet Estimate Large Platelets Anisocytosis (manual) Macrocytosis (manual) Ovalocytes Sodium Potassium Chloride Carbon Dioxide Anion Gap BUN Creatinine Est GFR ( Amer) Est GFR (Non-Af Amer) POC Glucose (mg/dL) 183 H 119 H Random Glucose Calcium Troponin I 0.1320 H* 02/11/18 02/11/18 02/11/18 03:21 06:19 06:19 WBC 7.9 RBC 2.68 L Hgb 8.8 L Hct 26.1 L MCV 97.4 MCH 32.9 H MCHC 33.8 RDW 19.0 H Plt Count 133 MPV 9.5 Neut % (Auto) 87.2 H Lymph % (Auto) 9.5 L Pitt % (Auto) 2.6 Eos % (Auto) 0.1 Baso % (Auto) 0.6 Neut # (Auto) 6.9 Lymph # (Auto) 0.8 L Pitt # (Auto) 0.2 Eos # (Auto) 0.0 Baso # (Auto) 0.0 Neutrophils % (Manual) 90 H Lymphocytes % (Manual) 7 L Monocytes % (Manual) 3 Platelet Estimate Slightly decreased L Large Platelets Present Anisocytosis (manual) Slight Macrocytosis (manual) Slight Ovalocytes Slight Sodium 140 Potassium 4.1 Chloride 102 Carbon Dioxide 27 Anion Gap 15 BUN 25 H Creatinine 1.2 Est GFR ( Amer) 53 Est GFR (Non-Af Amer) 44 POC Glucose (mg/dL) 133 H Random Glucose 159 H Calcium 8.5 Troponin I 0.1110 02/11/18 10:26 WBC RBC Hgb Hct MCV MCH MCHC RDW Plt Count MPV Neut % (Auto) Lymph % (Auto) Pitt % (Auto) Eos % (Auto) Baso % (Auto) Neut # (Auto) Lymph # (Auto) Pitt # (Auto) Eos # (Auto) Baso # (Auto) Neutrophils % (Manual) Lymphocytes % (Manual) Monocytes % (Manual) Platelet Estimate Large Platelets Anisocytosis (manual) Macrocytosis (manual) Ovalocytes Sodium Potassium Chloride Carbon Dioxide Anion Gap BUN Creatinine Est GFR ( Amer) Est GFR (Non-Af Amer) POC Glucose (mg/dL) 128 H Random Glucose Calcium Troponin I Assessment & Plan (1) Head trauma Status: Acute (2) Headache, post-traumatic, acute Status: Acute (3) Headache, post-traumatic, acute Status: Acute (4) Fall Status: Acute (5) Pneumonia Status: Acute (6) Nasal fracture Status: Acute (7) Nasal fracture Status: Acute (8) Acute chest pain Status: Acute (9) Congestive heart failure Status: Acute (10) Elevated troponin Status: Acute (11) Acute pulmonary edema Status: Acute (12) Afib Status: Acute - Assessment and Plan (Free Text) Assessment: cont iv antibiotics follow up cxr repeat cultures if pt spikes neurology eval cardio on board discussed wiith / patient at the bedside Plan: CXR shows extensive infiltrate / effusion ? may need to be drained Consider Pulm eval consider CT Head/ facial bones
--- NOTE | 2018-02-11 14:55 | CT ---
PROCEDURE: CT Chest without contrast HISTORY: left pleural effusion, extensive left opacity COMPARISON: None. TECHNIQUE: Contiguous axial images were obtained through the chest without intravenous contrast enhancement. Sagittal and coronal reconstructions were performed. Radiation dose (DLP): 134.37 mGy-cm. This CT exam was performed using one or more of the following dose reduction techniques: Automated exposure control, adjustment of the mA and/or kV according to patient size, and/or use of iterative reconstruction technique. FINDINGS: LUNGS: Evaluation of the lung parenchyma is limited by respiratory motion artifact. Heterogeneous ground-glass opacity in both upper lobes. Nonspecific. There is complete left lower lobe atelectasis, segmental/subsegmental left upper lobe atelectasis and right lower lobe atelectasis, all in association with bilateral pleural effusion, left greater than right. There is no pneumothorax. There is no pulmonary mass. MEDIASTINUM: Unremarkable thoracic aorta. No aneurysm. Mild cardiomegaly. Status post CABG. No pericardial effusion. Main pulmonary artery unremarkable. No vascular congestion. No lymphadenopathy. PLEURA: Moderate left and small right pleural effusion. No pneumothorax. BONES: No fracture. No destructive lesion. UPPER ABDOMEN: Grossly unremarkable. OTHER FINDINGS: None. IMPRESSION: Moderate left and small right pleural effusion with associated complete left lower lobe and partial left upper lobe and right lower lobe atelectasis, likely secondary to pleural effusions. No infiltrate. Cardiomegaly. CABG.
[2018-02-11] MEDS: Brimonidine 0.2% 50 DROP/5 ML BOTTLE OU SCH (21:43)
[2018-02-12] MEDS: Albuterol-Ipratrop 3 mg / 0.5 (3 ml) UD INH PRN (04:37)
[2018-02-12] MEDS: Nitroglycerin 2% Ointment Foilpak UD TOP SCH ×4 (05:14→21:16)
--- NOTE | 2018-02-12 06:38 | CARD ---
APPROVED REPORT EKG Measurement Heart [id number] 168P [id number] <Conclusion> Marked sinus bradycardia Left axis deviation Left ventricular hypertrophy Abnormal ECG
[2018-02-12] MEDS: Pantoprazole 40 mg EC Tab PO SCH (08:31)
[2018-02-12] MEDS: Insulin Regular 100 units/ml IVPB SCH ×4 (08:34→21:15)
--- NOTE | 2018-02-12 11:08 | CP.PCM.PN ---
Subjective - Date & Time of Evaluation Date of Evaluation: 02/12/18 Time of Evaluation: 08:00 - Subjective Subjective: no fever awake and alert occ chest discomfort Objective - Vital Signs/Intake and Output Vital Signs (last 24 hours): Temp Pulse Resp BP Pulse Ox 97.6 F 82 18 149/70 99 02/12/18 07:54 02/12/18 09:00 02/12/18 07:54 02/12/18 08:33 02/12/18 07:54 - Medications Medications: Current Medications Acetaminophen (Tylenol 325mg Tab) 325 mg PO Q4 PRN PRN Reason: Pain, Mild (1-3) Last Admin: 02/11/18 04:07 Dose: 325 mg Albuterol/Ipratropium (Duoneb 3 Mg/0.5 Mg (3 Ml) Ud) 3 ml INH RQ6 PRN PRN Reason: wheezing Last Admin: 02/12/18 04:37 Dose: 3 ml Allopurinol (Zyloprim) 100 mg PO DAILY [facility] Last Admin: 02/11/18 09:49 Dose: 100 mg Aspirin (Ecotrin) 81 mg PO DAILY [facility] Last Admin: 02/12/18 08:38 Dose: 81 mg Atorvastatin Calcium (Lipitor) 10 mg PO DAILY [facility] Last Admin: 02/12/18 08:33 Dose: 10 mg Benzocaine/Menthol (Cepacol Sore Throat) 1 figueroa PO Q3H PRN PRN Reason: Sore Throat Last Admin: 02/10/18 17:57 Dose: 1 figueroa Brimonidine Tartrate (Alphagan 0.2% Opht) 1 drop OU HS [facility] Last Admin: 02/11/18 21:43 Dose: 1 drop Docusate Sodium (Colace) 100 mg PO BID PRN PRN Reason: Constipation Ferrous Sulfate (Feosol) 325 mg PO TID [facility] Last Admin: 02/12/18 08:34 Dose: 325 mg Furosemide (Lasix) 20 mg PO DAILY [facility] Last Admin: 02/12/18 08:33 Dose: 20 mg Guaifenesin (Robitussin) 100 mg PO QID PRN PRN Reason: cough Ceftriaxone Sodium 1 gm/ (Sodium Chloride) 100 mls @ 100 mls/hr IVPB Q12 [facility] Stop: 02/16/20 21:01 Last Admin: 02/12/18 08:31 Dose: 100 mls/hr Insulin Human Regular (Humulin R) 0 units IVPB ACHS [facility] PRN Reason: Protocol Last Admin: 02/12/18 08:34 Dose: Not Given Nitroglycerin (Nitro-Bid 2% Oint) 1 ea TOP Q6H [facility] Last Admin: 02/12/18 05:14 Dose: 1 ea Pantoprazole Sodium (Protonix Ec Tab) 40 mg PO DAILY [facility] Last Admin: 02/12/18 08:31 Dose: 40 mg Sitagliptin Phosphate (Januvia) 25 mg PO DAILY [facility] Last Admin: 02/12/18 08:33 Dose: 25 mg - Labs Labs: 02/11/18 06:19 02/11/18 06:19 - Constitutional Appears: Non-toxic, Chronically Ill - Head Exam Head Exam: NORMOCEPHALIC - Eye Exam Eye Exam: PERRL - ENT Exam ENT Exam: Mucous Membranes Dry - Neck Exam Neck Exam: absent: Lymphadenopathy - Respiratory Exam Respiratory Exam: Decreased Breath Sounds - Cardiovascular Exam Cardiovascular Exam: REGULAR RHYTHM - GI/Abdominal Exam GI & Abdominal Exam: Distended, Soft Assessment and Plan (1) Head trauma Status: Acute (2) Headache, post-traumatic, acute Status: Acute (3) Headache, post-traumatic, acute Status: Acute (4) Fall Status: Acute (5) Pneumonia Status: Acute (6) Nasal fracture Status: Acute (7) Nasal fracture Status: Acute (8) Acute chest pain Status: Acute (9) Congestive heart failure Status: Acute (10) Elevated troponin Status: Acute (11) Acute pulmonary edema Status: Acute (12) Afib Status: Acute
--- NOTE | 2018-02-12 13:13 | PQF GENQUE ---
Dr. Hu, 1. Acuity of CHF Present on Admission 2. Type of CHF if known? The attending physician is required to clarify conflicting documentation in the medical record. The following documentation is noted in the medical record: Diagnosis 1: CHF: Chronic Documented by: Attending Location: H and P Diagnosis 2: CHF: Acute Documented by: ID Location: 02/11 consult 02/10: CXR: Impression: Extensive left-sided opacity. Probable left pleural effusion and possible tiny right pleural effusion. Congestive change. 02/[address]: Imp.: Moderate left and small right pleural effusion with associated complete left lower lobe and partial left upper lobe and right lower lobe atelectasis, likely secondary to pleural effusions. No infiltrate. Cardiomegaly. &CABG. H and P: Chronic congestive heart failure Amiodarone on hold continue Lasix 20mg PO daily Cardiology consult: PMH: CHF systolic diastolic dysfunction; This form is a permanent part of the medical record Clarification of your documentation is requested to better reflect the severity of illness and intensity of treatment of your patient. Indicators present [] Specify: [] [] Specify: [] [] Specify: [] [] Specify: [] Location in the medical record that reflects the above clinical findings: [] Treatment Provided: [] PHYSICIAN'S RESPONSE Chronic compensated CHF , systolic dysfunction Based on your medical judgment of the clinical indicators outlined above please clarify the following: [] Practitioner response [] If unable to determine, please check the box, sign and date. Present On Admission (POA) Indicator: [] Present at the time of admission [] Not present at the time of admission [] Clinically Undetermined In responding to this query, please exercise your independent professional judgment. The fact that a question is asked does not imply that any particular answer is desired or expected. Thank you for your clarification on this documentation. If you have any questions please call. * Thank you, Samina Serna RN ext. #[phone] MTDD
--- NOTE | 2018-02-12 13:26 | PQF GENQUE ---
Dr. Hu, 2 queries as follows: 1. Please provide a nutritional diagnosis, if known:The following clinical indicators are present in the medical record: BMI:16.4 84lb: i.e. Underweight or Small Frame etc. 2. Please list the BMI in your progress note OR: Unable to determine OR: Other explanation of clinical finding This form is a permanent part of the medical record Clarification of your documentation is requested to better reflect the severity of illness and intensity of treatment of your patient. Indicators present [] Specify: [] [] Specify: [] [] Specify: [] [] Specify: [] Location in the medical record that reflects the above clinical findings: [] Treatment Provided: [] PHYSICIAN'S RESPONSE BMI 16 -- most likely underweight Based on your medical judgment of the clinical indicators outlined above please clarify the following: [] Practitioner response [] If unable to determine, please check the box, sign and date. Present On Admission (POA) Indicator: [] Present at the time of admission [] Not present at the time of admission [] Clinically Undetermined In responding to this query, please exercise your independent professional judgment. The fact that a question is asked does not imply that any particular answer is desired or expected. Thank you for your clarification on this documentation. If you have any questions please call. * Thank you, Samina Serna RN ext. #[phone] MTDD
--- NOTE | 2018-02-12 18:39 | CP.PCM.PN ---
Subjective - Date & Time of Evaluation Date of Evaluation: 02/12/18 Time of Evaluation: 16:00 - Subjective Subjective: Patient seen and examined bedside. Lying in bed in NAD. Complains of on and off fast breathing . Complains of pressure like chest pain , continuos.NSR on monitor Hemodynamically stable BP 149/68 afebrile saturating 99-100 % on 2 L O2 via NC With hematom aover frntal area 3x 3 cm , tender to touch and periorbital echymosis Objective - Vital Signs/Intake and Output Vital Signs (last 24 hours): Temp Pulse Resp BP Pulse Ox 98.1 F 81 18 149/68 100 02/12/18 15:20 02/12/18 16:19 02/12/18 15:20 02/12/18 16:19 02/12/18 15:20 - Medications Medications: Current Medications Acetaminophen (Tylenol 325mg Tab) 325 mg PO Q4 PRN PRN Reason: Pain, Mild (1-3) Last Admin: 02/11/18 04:07 Dose: 325 mg Albuterol/Ipratropium (Duoneb 3 Mg/0.5 Mg (3 Ml) Ud) 3 ml INH RQ6 PRN PRN Reason: wheezing Last Admin: 02/12/18 04:37 Dose: 3 ml Allopurinol (Zyloprim) 100 mg PO DAILY [facility] Last Admin: 02/12/18 11:28 Dose: 100 mg Aspirin (Ecotrin) 81 mg PO DAILY [facility] Last Admin: 02/12/18 08:38 Dose: 81 mg Atorvastatin Calcium (Lipitor) 10 mg PO DAILY [facility] Last Admin: 02/12/18 08:33 Dose: 10 mg Benzocaine/Menthol (Cepacol Sore Throat) 1 figueroa PO Q3H PRN PRN Reason: Sore Throat Last Admin: 02/10/18 17:57 Dose: 1 figueroa Brimonidine Tartrate (Alphagan 0.2% Opht) 1 drop OU HS [facility] Last Admin: 02/11/18 21:43 Dose: 1 drop Docusate Sodium (Colace) 100 mg PO BID PRN PRN Reason: Constipation Ferrous Sulfate (Feosol) 325 mg PO TID [facility] Last Admin: 02/12/18 16:19 Dose: 325 mg Furosemide (Lasix) 20 mg PO DAILY [facility] Last Admin: 02/12/18 08:33 Dose: 20 mg Guaifenesin (Robitussin) 100 mg PO QID PRN PRN Reason: cough Ceftriaxone Sodium 1 gm/ (Sodium Chloride) 100 mls @ 100 mls/hr IVPB Q12 [facility] Stop: 02/16/20 21:01 Last Admin: 02/12/18 08:31 Dose: 100 mls/hr Insulin Human Regular (Humulin R) 0 units IVPB ACHS [facility] PRN Reason: Protocol Last Admin: 02/12/18 18:19 Dose: Not Given Nitroglycerin (Nitro-Bid 2% Oint) 1 ea TOP Q6H [facility] Last Admin: 02/12/18 16:19 Dose: 1 ea Pantoprazole Sodium (Protonix Ec Tab) 40 mg PO DAILY [facility] Last Admin: 02/12/18 08:31 Dose: 40 mg Sitagliptin Phosphate (Januvia) 25 mg PO DAILY [facility] Last Admin: 02/12/18 08:33 Dose: 25 mg - Labs Labs: 02/11/18 06:19 02/11/18 06:19 - Constitutional Appears: Non-toxic, No Acute Distress - Head Exam Additional comments: frontal hematoma 3 x3 cm periorbital echymosis - Eye Exam Eye Exam: PERRL - ENT Exam ENT Exam: Normal Exam - Neck Exam Neck Exam: Full ROM, Normal Inspection - Respiratory Exam Respiratory Exam: Decreased Breath Sounds (bibasilar more on the left ), NORMAL BREATHING PATTERN. absent: Rhonchi, Wheezes - Cardiovascular Exam Cardiovascular Exam: REGULAR RHYTHM. absent: JVD - GI/Abdominal Exam GI & Abdominal Exam: Soft, Normal Bowel Sounds. absent: Distended, Guarding, Rebound - Rectal Exam Rectal Exam: Deferred - Extremities Exam Extremities Exam: Normal Capillary Refill, Normal Inspection. absent: Full ROM , Pedal Edema - Back Exam Back Exam: NORMAL INSPECTION - Neurological Exam Neurological Exam: Alert, Awake, CN II-XII Intact, Oriented x3 - Psychiatric Exam Psychiatric exam: Normal Affect - Skin Skin Exam: Dry, Warm Assessment and Plan - Assessment and Plan (Free Text) Assessment: 72 yo female with history of CAD, CHF, COPD, MM, DM2 and new onset AFib admitted to TCU on 02/07/2018 as a transfer from [facility] for continuation of IV antibiotics because of Strept Pneumoniae Bacteremia and Pneumonia . 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 After about 7 hrs, patient fell in the bathroom while urinating. Patient claimed she didn't know what happened and sustained a huge frontal contusion hematoma.As poer the same thing has happened at home as qwell in more than 1 occasion [address] scan did not show intracerebral bleed but had nasal bone fracture and frontal hematoma .Patient was transferred to telemetry the next day after complaining of chest pain and noted elevated Troponin with no acute ischemic changes in EKG. 1.Chest pain ACs ruled out Troponins trending down with last set within normal range. chest pain non-cardiac and secondary to trauma cardiology consulted Tylenol PRN for pain 2.Paroxysmal Afib back on NSR at present presently in sinus with normal rate. cardiology consult with Dr Estrella appreciated resume Cardizem PO no therapeutic anticoagulation due to recent fall with head trauma and hematoma 3.Fall with frontal hematoma CT head showed nasal bone fracture and frontal hematoma probably secondary vasovagal changes or sudden dropped in BP Continue monitoring . Hematoma will most likely be absorbed with time and nasal bone fracture will heal with no intervention 4. Strep Pneumonia Bacteremia Penicillin resistant Strep Pneumoniae sensitive to Ceftriaxone continue IV Ceftriaxone Dr Pond on ID consult( total 14 days of IV antibiotics) 5. Chronic congestive heart failure ( systolic dysfunction , compensated ) continue Lasix 20mg PO daily , Statin , low salt diet patient has history CABG and follows up with Dr. Pedro trop elevation most likely secondary to demand ischemia from Afib 6. Multiple myeloma oncology consult with Dr Mosley on chemotherapy 7. BMI 16 most likely underweight 8. Bilateral pleural effusion Most likely related to CHF Ct chest showed moderate left pleura;l effusion and patient has some dyspnea at rest Restarted lasix daily IR consult for thoracenthesis and fluid analysis 9. Anemia Most likely anemia of chronic disease secondary to MM monitor for now on Ferrous sulfate 10.CKD stage III stable 11. DVT prophylaxis venodyne boots while in bed Lovenox renal dose
[2018-02-12] MEDS: Brimonidine 0.2% 50 DROP/5 ML BOTTLE OU SCH (21:16)
[2018-02-13] MEDS: Nitroglycerin 2% Ointment Foilpak UD TOP SCH ×4 (05:00→21:28)
[2018-02-13 05:43] LABS: HEMOGLOBIN 8.4 g/dL (12.0-16.0); MEAN CORPUSCULAR HEMOGLOBIN 32.4 pg (27.0-31.0); RBC 2.61 Mil/uL (3.80-5.20); RED CELL DISTRIBUTION WIDTH 19.5 % (11.5-14.5); WHITE BLOOD COUNT 5.1 K/uL (4.8-10.8)
[2018-02-13 05:46] LABS: ALB/GLOB RATIO 0.7 (1.0-2.1); ALBUMIN 2.6 g/dL (3.5-5.0); ALT/SGPT 26 U/L (9-52); AST/SGOT 22 U/L (14-36); BLOOD UREA NITROGEN 17 mg/dl (7-17); CALCIUM 8.4 mg/dL (8.4-10.2); GFR AFRICAN-AMERICAN > 60; GFR NON-AFRICAN AMERICAN > 60
[2018-02-13 05:55] LABS: INR 1.1 (0.9-1.2); PROTHROMBIN TIME 11.8 Seconds (9.8-13.1)
[2018-02-13] MEDS: Insulin Regular 100 units/ml IVPB SCH ×4 (06:34→22:16)
[2018-02-13] MEDS: Enoxaparin 30 mg Syringe SC SCH (08:53)
[2018-02-13] MEDS: Pantoprazole 40 mg EC Tab PO SCH (08:54)
[2018-02-13] MEDS ORDERED: Potassium Chloride 20 mEq/15 ml LIQ UD PO ONE (09:41)
--- NOTE | 2018-02-13 09:48 | CP.PCM.PN ---
Subjective - Date & Time of Evaluation Date of Evaluation: 02/13/18 Time of Evaluation: 09:30 - Subjective Subjective: patient seen and examined bedside. lying in bed in NAD. Complains of some SOB and fast breathing on and off. No acute issues overnight Still with some chest pain , continuos. For thoracenthesis today by IR BP 133/66 HR 66 afebrile WBC 5 k hgb 8.4 Objective - Vital Signs/Intake and Output Vital Signs (last 24 hours): Temp Pulse Resp BP Pulse Ox 98 F 66 18 133/66 100 02/13/18 07:43 02/13/18 08:59 02/13/18 07:43 02/13/18 08:59 02/13/18 07:43 - Medications Medications: Current Medications Acetaminophen (Tylenol 325mg Tab) 325 mg PO Q4 PRN PRN Reason: Pain, Mild (1-3) Last Admin: 02/11/18 04:07 Dose: 325 mg Albuterol/Ipratropium (Duoneb 3 Mg/0.5 Mg (3 Ml) Ud) 3 ml INH RQ6 PRN PRN Reason: wheezing Last Admin: 02/12/18 04:37 Dose: 3 ml Allopurinol (Zyloprim) 100 mg PO DAILY [facility] Last Admin: 02/13/18 08:54 Dose: 100 mg Aspirin (Ecotrin) 81 mg PO DAILY [facility] Last Admin: 02/13/18 08:53 Dose: 81 mg Atorvastatin Calcium (Lipitor) 10 mg PO DAILY [facility] Last Admin: 02/13/18 08:53 Dose: 10 mg Benzocaine/Menthol (Cepacol Sore Throat) 1 figueroa PO Q3H PRN PRN Reason: Sore Throat Last Admin: 02/10/18 17:57 Dose: 1 figueroa Brimonidine Tartrate (Alphagan 0.2% Opht) 1 drop OU HS [facility] Last Admin: 02/12/18 21:16 Dose: 1 drop Diltiazem HCl (Cardizem) 60 mg PO Q8@0500,1300,2100 [facility] Last Admin: 02/13/18 05:00 Dose: 60 mg Docusate Sodium (Colace) 100 mg PO BID PRN PRN Reason: Constipation Enoxaparin Sodium (Lovenox) 30 mg SC DAILY [facility] PRN Reason: Protocol Last Admin: 02/13/18 08:53 Dose: Not Given Ferrous Sulfate (Feosol) 325 mg PO TID [facility] Last Admin: 02/13/18 08:53 Dose: 325 mg Furosemide (Lasix) 20 mg PO DAILY [facility] Last Admin: 02/13/18 08:52 Dose: Not Given Guaifenesin (Robitussin) 100 mg PO QID PRN PRN Reason: cough Ceftriaxone Sodium 1 gm/ (Sodium Chloride) 100 mls @ 100 mls/hr IVPB Q12 [facility] Stop: 02/16/20 21:01 Last Admin: 02/13/18 08:54 Dose: 100 mls/hr Insulin Human Regular (Humulin R) 0 units IVPB ACHS [facility] PRN Reason: Protocol Last Admin: 02/13/18 06:34 Dose: Not Given Nitroglycerin (Nitro-Bid 2% Oint) 1 ea TOP Q6H [facility] Last Admin: 02/13/18 08:59 Dose: 1 ea Pantoprazole Sodium (Protonix Ec Tab) 40 mg PO DAILY [facility] Last Admin: 02/13/18 08:54 Dose: 40 mg Sitagliptin Phosphate (Januvia) 25 mg PO DAILY [facility] Last Admin: 02/13/18 08:52 Dose: 25 mg - Labs Labs: 02/13/18 04:20 02/13/18 04:20 PT 11.8 Seconds (9.8-13.1) 02/13/18 04:20 INR 1.1 (0.9-1.2) 02/13/18 04:20 - Constitutional Appears: Non-toxic, No Acute Distress, Other (underweight ) - Head Exam Additional comments: frontal hematoma 3 x 3 cm periorbital ( more on the left ) echymosis - Eye Exam Eye Exam: PERRL Pupil Exam: NORMAL ACCOMODATION - ENT Exam ENT Exam: Mucous Membranes Moist, Normal Exam - Neck Exam Neck Exam: Full ROM, Normal Inspection - Respiratory Exam Respiratory Exam: Decreased Breath Sounds (left base ). absent: Rhonchi, Wheezes - Cardiovascular Exam Cardiovascular Exam: REGULAR RHYTHM, RRR, +S1, +S2. absent: JVD - GI/Abdominal Exam GI & Abdominal Exam: Soft, Normal Bowel Sounds. absent: Distended, Guarding, Tenderness, Rebound - Rectal Exam Rectal Exam: Deferred - Extremities Exam Extremities Exam: Full ROM, Normal Capillary Refill, Normal Inspection. absent : Calf Tenderness, Pedal Edema, Tenderness - Back Exam Back Exam: NORMAL INSPECTION - Neurological Exam Neurological Exam: Alert, Awake, CN II-XII Intact, Oriented x3 - Psychiatric Exam Psychiatric exam: Normal Affect - Skin Skin Exam: Dry, Warm Assessment and Plan - Assessment and Plan (Free Text) Assessment: 72 yo female with history of CAD, CHF, MM, DM2 and new onset AFib admitted to TCU on 02/07/2018 as a transfer from [facility] for continuation of IV antibiotics because of Strept Pneumoniae Bacteremia and Pneumonia . 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 After about 7 hrs, patient fell in the bathroom while urinating. Patient claimed she didn't know what happened and sustained a huge frontal contusion hematoma.As per the same thing had happened at home as well in more than 1 occasion after voiding . CT scan did not show intracerebral bleed but had nasal bone fracture and frontal hematoma .Patient was transferred to telemetry the next day after complaining of chest pain and noted elevated Troponin with no acute ischemic changes in EKG. At present improving but with some dyspnea o and off and Ct chest showing moderate left pleural effusion . 1.Chest pain ACs ruled out Troponins trending down with last set within normal range. chest pain non-cardiac and secondary to trauma cardiology consulted Tylenol PRN for pain 2.Paroxysmal Afib back on NSR at present presently in sinus with normal rate. cardiology consult with Dr Estrella appreciated resumed Cardizem PO no therapeutic anticoagulation due to recent fall with head trauma and hematoma 3.Fall with frontal hematoma CT head showed nasal bone fracture and frontal hematoma probably secondary vasovagal changes or sudden dropped in BP Continue monitoring . Hematoma will most likely be absorbed over time and nasal bone fracture will heal with no intervention 4. Strep Pneumonia Bacteremia Penicillin resistant Strep Pneumoniae sensitive to Ceftriaxone continue IV Ceftriaxone Dr Pond on ID consult( total 14 days of IV antibiotics) 5. Chronic congestive heart failure ( systolic dysfunction , compensated ) continue Lasix 20mg PO daily , Statin , low salt diet patient has history CABG and follows up with Dr. Pedro trop elevation most likely secondary to demand ischemia from Afib 6. Multiple myeloma oncology consult with Dr Mosley on chemotherapy 7. BMI 16 most likely underweight 8. Bilateral pleural effusion Most likely related to CHF Ct chest showed moderate left pleural effusion and patient has some dyspnea at rest Restarted lasix daily For thoracenthesis by Ir today and fluid analysis 9. Anemia Most likely anemia of chronic disease secondary to MM monitor for now on Ferrous sulfate Hgb 8 10.CKD stage III stable 11. DVT prophylaxis venodyne boots while in bed Lovenox renal dose
--- NOTE | 2018-02-13 11:26 | CP.PCM.PN ---
Subjective - Date & Time of Evaluation Date of Evaluation: 02/13/18 Time of Evaluation: 08:00 - Subjective Subjective: awake alert appears depressed NAD await IR drainage Objective - Vital Signs/Intake and Output Vital Signs (last 24 hours): Temp Pulse Resp BP Pulse Ox 98 F 66 18 133/66 100 02/13/18 07:43 02/13/18 08:59 02/13/18 07:43 02/13/18 08:59 02/13/18 07:43 - Medications Medications: Current Medications Acetaminophen (Tylenol 325mg Tab) 325 mg PO Q4 PRN PRN Reason: Pain, Mild (1-3) Last Admin: 02/11/18 04:07 Dose: 325 mg Albuterol/Ipratropium (Duoneb 3 Mg/0.5 Mg (3 Ml) Ud) 3 ml INH RQ6 PRN PRN Reason: wheezing Last Admin: 02/12/18 04:37 Dose: 3 ml Allopurinol (Zyloprim) 100 mg PO DAILY [facility] Last Admin: 02/13/18 08:54 Dose: 100 mg Aspirin (Ecotrin) 81 mg PO DAILY [facility] Last Admin: 02/13/18 08:53 Dose: 81 mg Atorvastatin Calcium (Lipitor) 10 mg PO DAILY [facility] Last Admin: 02/13/18 08:53 Dose: 10 mg Benzocaine/Menthol (Cepacol Sore Throat) 1 figueroa PO Q3H PRN PRN Reason: Sore Throat Last Admin: 02/10/18 17:57 Dose: 1 figueroa Brimonidine Tartrate (Alphagan 0.2% Opht) 1 drop OU HS [facility] Last Admin: 02/12/18 21:16 Dose: 1 drop Diltiazem HCl (Cardizem) 60 mg PO Q8@0500,1300,2100 [facility] Last Admin: 02/13/18 05:00 Dose: 60 mg Docusate Sodium (Colace) 100 mg PO BID PRN PRN Reason: Constipation Enoxaparin Sodium (Lovenox) 30 mg SC DAILY [facility] PRN Reason: Protocol Last Admin: 02/13/18 08:53 Dose: Not Given Ferrous Sulfate (Feosol) 325 mg PO TID [facility] Last Admin: 02/13/18 08:53 Dose: 325 mg Furosemide (Lasix) 20 mg PO DAILY [facility] Last Admin: 02/13/18 08:52 Dose: Not Given Guaifenesin (Robitussin) 100 mg PO QID PRN PRN Reason: cough Ceftriaxone Sodium 1 gm/ (Sodium Chloride) 100 mls @ 100 mls/hr IVPB Q12 [facility] Stop: 02/16/20 21:01 Last Admin: 02/13/18 08:54 Dose: 100 mls/hr Insulin Human Regular (Humulin R) 0 units IVPB ACHS [facility] PRN Reason: Protocol Last Admin: 02/13/18 06:34 Dose: Not Given Nitroglycerin (Nitro-Bid 2% Oint) 1 ea TOP Q6H [facility] Last Admin: 02/13/18 08:59 Dose: 1 ea Pantoprazole Sodium (Protonix Ec Tab) 40 mg PO DAILY [facility] Last Admin: 02/13/18 08:54 Dose: 40 mg Sitagliptin Phosphate (Januvia) 25 mg PO DAILY [facility] Last Admin: 02/13/18 08:52 Dose: 25 mg - Labs Labs: 02/13/18 04:20 02/13/18 04:20 PT 11.8 Seconds (9.8-13.1) 02/13/18 04:20 INR 1.1 (0.9-1.2) 02/13/18 04:20 - Constitutional Appears: Non-toxic, Chronically Ill - Head Exam Head Exam: NORMOCEPHALIC - Eye Exam Eye Exam: PERRL. absent: Scleral icterus - ENT Exam ENT Exam: Mucous Membranes Dry - Neck Exam Neck Exam: absent: Lymphadenopathy - Respiratory Exam Respiratory Exam: Decreased Breath Sounds, Rhonchi - Cardiovascular Exam Cardiovascular Exam: REGULAR RHYTHM - GI/Abdominal Exam GI & Abdominal Exam: Distended, Soft - Rectal Exam Rectal Exam: Deferred - Exam Exam: NORMAL INSPECTION - Extremities Exam Extremities Exam: absent: Pedal Edema - Back Exam Back Exam: absent: CVA tenderness (L), CVA tenderness (R) - Neurological Exam Neurological Exam: Alert, Awake, Oriented x3 - Psychiatric Exam Psychiatric exam: Depressed, Flat Affect - Skin Skin Exam: Dry Assessment and Plan (1) Head trauma Status: Acute (2) Headache, post-traumatic, acute Status: Acute (3) Headache, post-traumatic, acute Status: Acute (4) Fall Status: Acute (5) Pneumonia Status: Acute (6) Nasal fracture Status: Acute (7) Nasal fracture Status: Acute (8) Acute chest pain Status: Acute (9) Congestive heart failure Status: Acute (10) Elevated troponin Status: Acute (11) Acute pulmonary edema Status: Acute (12) Afib Status: Acute
[2018-02-13] MEDS ORDERED: Lidocaine 1% Inj (20ml) ONE (13:37)
--- NOTE | 2018-02-13 14:13 | PCM.SURG1 ---
Surgeon's Initial Post Op Note - Surgeon's Notes Surgeon: Curtis Zambrano MD Debt Collection Specialist: None Type of Anesthesia: Local Pre-Operative Diagnosis: sob Operative Findings: small to moderate left pleural effusion Post-Operative Diagnosis: same Operation Performed: US guided LEFT thoracentesis Specimen/Specimens Removed: 750 ml serosanguinous fluid removed. sample submitted. Estimated Blood Loss: EBL {In ML}: 0 Date of Surgery/Procedure: 02/13/18 Time of Surgery/Procedure: 14:00
[2018-02-13 14:32] LABS: BODY FLUID TYPE PLEURAL/THORACENTESI
[2018-02-13 15:04] LABS: TOTAL PROTEIN,BODY FLUID 3.4 g/dL (NONE ESTABLISHED)
--- NOTE | 2018-02-13 16:34 | CP.PCM.PN ---
Subjective - Date & Time of Evaluation Date of Evaluation: 02/12/18 Time of Evaluation: 09:05 - Subjective Subjective: Has some nasal pain. Objective - Vital Signs/Intake and Output Vital Signs (last 24 hours): Temp Pulse Resp BP Pulse Ox 98.2 F 63 20 118/53 L 98 02/13/18 16:08 02/13/18 16:08 02/13/18 16:08 02/13/18 16:08 02/13/18 16:08 - Medications Medications: Current Medications Acetaminophen (Tylenol 325mg Tab) 325 mg PO Q4 PRN PRN Reason: Pain, Mild (1-3) Last Admin: 02/13/18 14:58 Dose: 325 mg Albuterol/Ipratropium (Duoneb 3 Mg/0.5 Mg (3 Ml) Ud) 3 ml INH RQ6 PRN PRN Reason: wheezing Last Admin: 02/12/18 04:37 Dose: 3 ml Allopurinol (Zyloprim) 100 mg PO DAILY [facility] Last Admin: 02/13/18 08:54 Dose: 100 mg Aspirin (Ecotrin) 81 mg PO DAILY [facility] Last Admin: 02/13/18 08:53 Dose: 81 mg Atorvastatin Calcium (Lipitor) 10 mg PO DAILY [facility] Last Admin: 02/13/18 08:53 Dose: 10 mg Benzocaine/Menthol (Cepacol Sore Throat) 1 figueroa PO Q3H PRN PRN Reason: Sore Throat Last Admin: 02/10/18 17:57 Dose: 1 figueroa Brimonidine Tartrate (Alphagan 0.2% Opht) 1 drop OU HS [facility] Last Admin: 02/12/18 21:16 Dose: 1 drop Diltiazem HCl (Cardizem) 60 mg PO Q8@0500,1300,2100 [facility] Last Admin: 02/13/18 12:46 Dose: 60 mg Docusate Sodium (Colace) 100 mg PO BID PRN PRN Reason: Constipation Enoxaparin Sodium (Lovenox) 30 mg SC DAILY [facility] PRN Reason: Protocol Last Admin: 02/13/18 08:53 Dose: Not Given Ferrous Sulfate (Feosol) 325 mg PO TID [facility] Last Admin: 02/13/18 12:47 Dose: 325 mg Furosemide (Lasix) 20 mg PO DAILY [facility] Last Admin: 02/13/18 08:52 Dose: Not Given Guaifenesin (Robitussin) 100 mg PO QID PRN PRN Reason: cough Ceftriaxone Sodium 1 gm/ (Sodium Chloride) 100 mls @ 100 mls/hr IVPB Q12 [facility] Stop: 02/16/20 21:01 Last Admin: 02/13/18 08:54 Dose: 100 mls/hr Insulin Human Regular (Humulin R) 0 units IVPB ACHS [facility] PRN Reason: Protocol Last Admin: 02/13/18 12:39 Dose: Not Given Nitroglycerin (Nitro-Bid 2% Oint) 1 ea TOP Q6H [facility] Last Admin: 02/13/18 08:59 Dose: 1 ea Pantoprazole Sodium (Protonix Ec Tab) 40 mg PO DAILY [facility] Last Admin: 02/13/18 08:54 Dose: 40 mg Sitagliptin Phosphate (Januvia) 25 mg PO DAILY [facility] Last Admin: 02/13/18 08:52 Dose: 25 mg - Labs Labs: 02/13/18 04:20 02/13/18 04:20 PT 11.8 Seconds (9.8-13.1) 02/13/18 04:20 INR 1.1 (0.9-1.2) 02/13/18 04:20 - Head Exam Additional comments: forehead hematoma - ENT Exam ENT Exam: Mucous Membranes Dry - Respiratory Exam Respiratory Exam: NORMAL BREATHING PATTERN - Cardiovascular Exam Cardiovascular Exam: +S1, +S2 - GI/Abdominal Exam GI & Abdominal Exam: Normal Bowel Sounds Assessment and Plan (1) Anemia Assessment & Plan: CKD, chronic disease, multiple myeloma transfusion support PRN Status: Acute (2) Multiple myeloma Assessment & Plan: outpatient treatment Status: Acute
--- NOTE | 2018-02-13 16:37 | CP.PCM.PN ---
Subjective - Date & Time of Evaluation Date of Evaluation: 02/13/18 Time of Evaluation: 15:45 - Subjective Subjective: Tolerated thoracentesis. Objective - Vital Signs/Intake and Output Vital Signs (last 24 hours): Temp Pulse Resp BP Pulse Ox 98.2 F 63 20 118/53 L 98 02/13/18 16:08 02/13/18 16:08 02/13/18 16:08 02/13/18 16:08 02/13/18 16:08 - Medications Medications: Current Medications Acetaminophen (Tylenol 325mg Tab) 325 mg PO Q4 PRN PRN Reason: Pain, Mild (1-3) Last Admin: 02/13/18 14:58 Dose: 325 mg Albuterol/Ipratropium (Duoneb 3 Mg/0.5 Mg (3 Ml) Ud) 3 ml INH RQ6 PRN PRN Reason: wheezing Last Admin: 02/12/18 04:37 Dose: 3 ml Allopurinol (Zyloprim) 100 mg PO DAILY [facility] Last Admin: 02/13/18 08:54 Dose: 100 mg Aspirin (Ecotrin) 81 mg PO DAILY [facility] Last Admin: 02/13/18 08:53 Dose: 81 mg Atorvastatin Calcium (Lipitor) 10 mg PO DAILY [facility] Last Admin: 02/13/18 08:53 Dose: 10 mg Benzocaine/Menthol (Cepacol Sore Throat) 1 figueroa PO Q3H PRN PRN Reason: Sore Throat Last Admin: 02/10/18 17:57 Dose: 1 figueroa Brimonidine Tartrate (Alphagan 0.2% Opht) 1 drop OU HS [facility] Last Admin: 02/12/18 21:16 Dose: 1 drop Diltiazem HCl (Cardizem) 60 mg PO Q8@0500,1300,2100 [facility] Last Admin: 02/13/18 12:46 Dose: 60 mg Docusate Sodium (Colace) 100 mg PO BID PRN PRN Reason: Constipation Enoxaparin Sodium (Lovenox) 30 mg SC DAILY [facility] PRN Reason: Protocol Last Admin: 02/13/18 08:53 Dose: Not Given Ferrous Sulfate (Feosol) 325 mg PO TID [facility] Last Admin: 02/13/18 12:47 Dose: 325 mg Furosemide (Lasix) 20 mg PO DAILY [facility] Last Admin: 02/13/18 08:52 Dose: Not Given Guaifenesin (Robitussin) 100 mg PO QID PRN PRN Reason: cough Ceftriaxone Sodium 1 gm/ (Sodium Chloride) 100 mls @ 100 mls/hr IVPB Q12 [facility] Stop: 02/16/20 21:01 Last Admin: 02/13/18 08:54 Dose: 100 mls/hr Insulin Human Regular (Humulin R) 0 units IVPB ACHS [facility] PRN Reason: Protocol Last Admin: 02/13/18 12:39 Dose: Not Given Nitroglycerin (Nitro-Bid 2% Oint) 1 ea TOP Q6H [facility] Last Admin: 02/13/18 08:59 Dose: 1 ea Pantoprazole Sodium (Protonix Ec Tab) 40 mg PO DAILY [facility] Last Admin: 02/13/18 08:54 Dose: 40 mg Sitagliptin Phosphate (Januvia) 25 mg PO DAILY [facility] Last Admin: 02/13/18 08:52 Dose: 25 mg - Labs Labs: 02/13/18 04:20 02/13/18 04:20 PT 11.8 Seconds (9.8-13.1) 02/13/18 04:20 INR 1.1 (0.9-1.2) 02/13/18 04:20 - Head Exam Head Exam: ATRAUMATIC - Eye Exam Eye Exam: Normal appearance - ENT Exam ENT Exam: Mucous Membranes Dry - Respiratory Exam Respiratory Exam: NORMAL BREATHING PATTERN - Cardiovascular Exam Cardiovascular Exam: +S1, +S2 Assessment and Plan (1) Anemia Assessment & Plan: ckd, chronic disease, multiple myeloma Status: Acute (2) Multiple myeloma Assessment & Plan: outpatient treatment Status: Acute
[2018-02-13 16:39] LABS: BF GROSS APPEARANCE SL CLOUDY (CLEAR)
[2018-02-13 16:45] LABS: BODY FLUID MONO/MACROPHAGE 14 % (0-0); BODY FLUID TOTAL COUNT 100 (0-0)
[2018-02-13] MEDS: Brimonidine 0.2% 50 DROP/5 ML BOTTLE OU SCH (21:14)
[2018-02-14] MEDS: Nitroglycerin 2% Ointment Foilpak UD TOP SCH ×2 (04:15→09:41)
[2018-02-14 05:52] LABS: HEMOGLOBIN 8.4 g/dL (12.0-16.0); MEAN CELL VOLUME 99.1 fl (81.0-99.0); MEAN CORPUSCULAR HEMOGLOBIN 32.3 pg (27.0-31.0); MEAN CORPUSCULAR HGB CONC 32.6 g/dL (33.0-37.0); RBC 2.6 Mil/uL (3.80-5.20); RED CELL DISTRIBUTION WIDTH 19.6 % (11.5-14.5); WHITE BLOOD COUNT 4.8 K/uL (4.8-10.8)
[2018-02-14 06:03] LABS: BLOOD UREA NITROGEN 19 mg/dl (7-17); CALCIUM 8.1 mg/dL (8.4-10.2); GFR AFRICAN-AMERICAN > 60; GFR NON-AFRICAN AMERICAN > 60
[2018-02-14 08:00] VITALS: RESP 20; O2SAT 100
[2018-02-14] MEDS: Enoxaparin 30 mg Syringe SC SCH (09:38)
[2018-02-14] MEDS: Insulin Regular 100 units/ml IVPB SCH (09:40)
[2018-02-14] MEDS: Pantoprazole 40 mg EC Tab PO SCH (09:41)
--- NOTE | 2018-02-14 11:21 | US ---
PROCEDURE: ULTRASOUND-GUIDED THORACENTESIS CLINICAL HISTORY: 72-year-old female is referred to Interventional Radiology for ultrasound-guided thoracentesis. COMPARISON: CT scan of the chest dated 02/11/2018 PROCEDURE: 1. Ultrasound-guided left thoracentesis. PRE-PROCEDURE FINDINGS: 1. Small to moderate volume pleural effusion. POST-PROCEDURE FINDINGS: 1. No evidence of post-procedural complication. INTERVENTIONAL RADIOLOGIST: Curtis Zambrano M.D. (the attending was present for the entire procedure) ANESTHESIA: None. MEDICATION: Lidocaine 1% for local subcutaneous analgesia. COMPLICATIONS: None. PROCEDURE DESCRIPTION AND FINDINGS: The risks, benefits, alternatives and possible complications of the procedure were fully discussed; all questions were answered and informed consent was obtained. The patient was brought into the interventional suite and a pre-procedure 'time-out' was performed. The patient was placed in the seated position. Preliminary ultrasound images of the left hemithorax demonstrate a small to moderate simple appearing pleural effusion. The left hemithorax was prepped and draped in the usual sterile fashion. Maximum sterile barrier precautions were maintained throughout the entire procedure. Following subcutaneous infiltration of lidocaine 1% for local analgesia, under ultrasound guidance, a 5 [place] centesis catheter was advanced into the left pleural space with real-time visualization of needle entry. The ultrasound images were permanently recorded and submitted to the PACS. The inner stylet was removed with prompt return of serosanguineous fluid. The catheter was attached to gentle vacuum suction. A total of 750 mL of serosanguineous fluid was aspirated. A sample was sent to the laboratory for analysis. The drainage catheter was then removed. A sterile adhesive bandage was placed over the puncture site. The patient tolerated the procedure well without immediate post-procedure complications and was transferred back to the floor in stable condition. IMPRESSION: SUCCESSFUL ULTRASOUND-GUIDED DIAGNOSTIC AND THERAPEUTIC LEFT THORACENTESIS.
--- NOTE | 2018-02-14 11:26 | CP.PCM.DIS ---
Provider - Provider Date of Admission: 02/10/18 13:52 Attending physician: Kyle Reveles MD Primary care physician: Nikko Pedro MD Consults: cardiology consult pulmonary consult hematology consult Time Spent in preparation of Discharge (in minutes): 15 Hospital Course - Lab Results Lab Results: Micro Results 02/13/18 14:20 Pleural Fluid Gram Stain - Final Most Recent Lab Values WBC 4.8 K/uL (4.8-10.8) 02/14/18 04:20 RBC 2.60 Mil/uL (3.80-5.20) L 02/14/18 04:20 Hgb 8.4 g/dL (12.0-16.0) L 02/14/18 04:20 Hct 25.8 % (34.0-47.0) L 02/14/18 04:20 MCV 99.1 fl (81.0-99.0) H 02/14/18 04:20 MCH 32.3 pg (27.0-31.0) H 02/14/18 04:20 MCHC 32.6 g/dL (33.0-37.0) L 02/14/18 04:20 RDW 19.6 % (11.5-14.5) H 02/14/18 04:20 Plt Count 194 K/uL (130-400) 02/14/18 04:20 MPV 9.5 fl (7.2-11.7) 02/11/18 06:19 Neut % (Auto) 87.2 % (50.0-75.0) H 02/11/18 06:19 Lymph % (Auto) 9.5 % (20.0-40.0) L 02/11/18 06:19 [place] % (Auto) 2.6 % (0.0-10.0) 02/11/18 06:19 Eos % (Auto) 0.1 % (0.0-4.0) 02/11/18 06:19 Baso % (Auto) 0.6 % (0.0-2.0) 02/11/18 06:19 Neut # (Auto) 6.9 K/uL (1.8-7.0) 02/11/18 06:19 Lymph # (Auto) 0.8 K/uL (1.0-4.3) L 02/11/18 06:19 [place] # (Auto) 0.2 K/uL (0.0-0.8) 02/11/18 06:19 Eos # (Auto) 0.0 K/uL (0.0-0.7) 02/11/18 06:19 Baso # (Auto) 0.0 K/uL (0.0-0.2) 02/11/18 06:19 Neutrophils % (Manual) 90 % (42-75) H 02/11/18 06:19 Lymphocytes % (Manual) 7 % (20-50) L 02/11/18 06:19 Monocytes % (Manual) 3 % (0-10) 02/11/18 06:19 Platelet Estimate Slightly decreased (NORMAL) L 02/11/18 06:19 Large Platelets Present 02/11/18 06:19 Anisocytosis (manual) Slight 02/11/18 06:19 Macrocytosis (manual) Slight 02/11/18 06:19 Ovalocytes Slight 02/11/18 06:19 PT 11.8 Seconds (9.8-13.1) 02/13/18 04:20 INR 1.1 (0.9-1.2) 02/13/18 04:20 Sodium 138 mmol/l (132-148) 02/14/18 04:20 Potassium 4.0 MMOL/L (3.6-5.0) 02/14/18 04:20 Chloride 105 mmol/L (98-107) 02/14/18 04:20 Carbon Dioxide 26 mmol/L (22-30) 02/14/18 04:20 Anion Gap 11 (10-20) 02/14/18 04:20 BUN 19 mg/dl (7-17) H 02/14/18 04:20 Creatinine 0.9 mg/dl (0.7-1.2) 02/14/18 04:20 Est GFR ( Amer) > 60 02/14/18 04:20 Est GFR (Non-Af Amer) > 60 02/14/18 04:20 POC Glucose (mg/dL) 176 mg/dL (65-110) H 02/14/18 10:36 Random Glucose 119 mg/dL (65-105) H 02/14/18 04:20 Calcium 8.1 mg/dL (8.4-10.2) L 02/14/18 04:20 Total Bilirubin 0.4 mg/dl (0.2-1.3) 02/13/18 04:20 AST 22 U/L (14-36) 02/13/18 04:20 ALT 26 U/L (9-52) 02/13/18 04:20 Alkaline Phosphatase 109 U/L (38-126) 02/13/18 04:20 Troponin I 0.1110 ng/mL (0.00-0.120) 02/11/18 06:19 Total Protein 6.7 G/DL (6.3-8.2) 02/13/18 04:20 Albumin 2.6 g/dL (3.5-5.0) L 02/13/18 04:20 Globulin 4.1 gm/dL (2.2-3.9) H 02/13/18 04:20 Albumin/Globulin Ratio 0.7 (1.0-2.1) L 02/13/18 04:20 Procalcitonin 0.09 NG/ML (0.19-0.49) L 02/11/18 15:23 Fluid Source Pleural/thoracentesi 02/13/18 14:20 Fluid Appearance Sl cloudy (CLEAR) 02/13/18 14:20 Fluid WBC 755.0 /mm3 (0.0-300.0) H 02/13/18 14:20 Fluid RBC 3522.0 /mm3 (0.0-0.0) H 02/13/18 14:20 Fluid Tot Cell Count 100 (0-0) H 02/13/18 14:20 Fluid Neutrophils 59.0 % (0-0) H 02/13/18 14:20 Fluid Lymphocytes 26.0 % (0-0) H 02/13/18 14:20 Fld Monocyte/Macrophag 14 % (0-0) H 02/13/18 14:20 Fluid Total Protein 3.4 g/dL (NONE ESTABLISHED) 02/13/18 14:20 Fluid LDH 315 IU (NONE ESTABLISHED) 02/13/18 14:20 Fluid Comment Yellow 02/13/18 14:20 - Hospital Course Hospital Course: 72 yo female with history of CAD, CHF, MM, DM2 and new onset AFib admitted to TCU on 02/07/2018 as a transfer from [facility] for continuation of IV antibiotics because of Strept Pneumoniae Bacteremia and Pneumonia . Patient had an [employer] PROFESSIONAL in TCU for rapid AFib with RVR that responded to 2 doses of 10mg IV Cardizem. After about 7 hrs, patient fell in the bathroom while urinating. Patient claimed she didn't know what happened and sustained a huge frontal contusion hematoma.As per the same thing had happened at home as well in more than 1 occasion [address] scan did not show intracerebral bleed but had nasal bone fracture and frontal hematoma .Patient was transferred to telemetry the next day after complaining of chest pain and noted elevated Troponin with no acute ischemic changes in EKG.She was placed on satellite project site monitor, troponins were cycled and Cardiology was consulted. As per cardiology most likely her chest pain was muskuloskeltal in nature and not cardiac and elevated Troponins were most likely secondary to demand ischemia during Afib. Her CT chest showed moderate left pleural effusion and IR was consulted for thoracenthesis since patient was having some dyspnea at rest. Almost 750 ml of serosanguinous fluid was removed and sent for testing that showed transudate.At present she is back on SR on monitor , chest pain free and her dyspnea has improved, She is still on IV rocephin for her Strep Pneumonia bacteremia as per ID. She is hemodynamically stable at present and ready to be transferred back to TCU for physical therapy and continuation of her IV antibiotics. Will continue to follow her in TCU 1.Chest pain ACs ruled out Troponins trending down with last set within normal range. chest pain non-cardiac and secondary to trauma cardiology consulted Tylenol PRN for pain 2.Paroxysmal Afib back on NSR at present presently in sinus with normal rate. cardiology consult with Dr Estrella appreciated resumed Cardizem PO no therapeutic anticoagulation due to recent fall with head trauma and hematoma 3.Fall with frontal hematoma CT head showed nasal bone fracture and frontal hematoma probably secondary vasovagal changes or sudden drop in BP Continue monitoring . Hematoma will most likely be absorbed over time and nasal bone fracture will heal with no intervention 4. Strep Pneumonia Bacteremia Penicillin resistant Strep Pneumoniae sensitive to Ceftriaxone continue IV Ceftriaxone Dr Pond on ID consult( total 14 days of IV antibiotics)( will need 5 more days ) 5. Chronic congestive heart failure ( systolic dysfunction , compensated ) continue Lasix 20mg PO daily , Statin , low salt diet patient has history CABG and follows up with Dr. Pedro trop elevation most likely secondary to demand ischemia from Afib 6. Multiple myeloma oncology consult with Dr Mosley on chemotherapy 7. BMI 16 most likely underweight 8. Bilateral pleural effusion Most likely related to CHF Ct chest showed moderate left pleural effusion and patient has some dyspnea at rest so underwent thoracenthesis with removal of 750 ml fluid that showed transudate continue lasix 9. Anemia Most likely anemia of chronic disease secondary to MM monitor for now on Ferrous sulfate Hgb 8 10.CKD stage III stable 11. DVT prophylaxis venodyne boots while in bed Lovenox renal dose Discharge Exam - Head Exam Head Exam: ATRAUMATIC Additional comments: frontal hematoma 3x3 cm and periorbital echymosis more on the left - Eye Exam Eye Exam: PERRL - ENT Exam ENT Exam: Normal Exam - Neck Exam Neck exam: Normal Inspection - Respiratory Exam Respiratory Exam: Clear to PA & Lateral, Rales (to left base ). absent: Rhonchi , Wheezes, Respiratory Distress - Cardiovascular Exam Cardiovascular Exam: REGULAR RHYTHM, RRR, +S1, +S2. absent: JVD - GI/Abdominal Exam GI & Abdominal Exam: Normal Bowel Sounds, Soft. absent: Distended, Guarding, Rebound, Tenderness - Rectal Exam Rectal Exam: Deferred - Extremities Exam Extremities exam: normal capillary refill, normal inspection, pedal pulses present - Back Exam Back exam: NORMAL INSPECTION - Neurological Exam Neurological exam: Alert, CN II-XII Intact - Psychiatric Exam Psychiatric exam: Flat Affect - Skin Skin Exam: Dry, Warm Additional comments: frontal hematoma periorbital echymosis Discharge Plan - Follow Up Plan Condition: IMPROVED Disposition: TRANSF TO SNF Patient education suggested?: Yes Referrals: Nikko Pedro MD [Primary Care Provider] -
[2018-02-14 11:52] VITALS: BP 132/67; PULSE 67; TEMP 97.1
== END 2018-02-14 14:06 | DRG 313 ==
LOC: H.ER 13:24 → H.ERHOLD 13:52 → H.TEL 15:38
PROC: 0W9B3ZZ Drainage of Left Pleural Cavity, Percutaneous Approach (ICD-10-PCS; principal; 2018-02-12)
DX: R07.89 Other chest pain (principal); R78.81 Bacteremia; C90.00 Multiple myeloma not having achieved remission; I13.0 Hypertensive heart and chronic kidney disease with heart failure and stage 1 through stage 4 chronic kidney disease, or unspecified chronic kidney disease; Z68.1 Body mass index [BMI] 19.9 or less, adult; J91.8 Pleural effusion in other conditions classified elsewhere; I50.22 Chronic systolic (congestive) heart failure; B95.3 Streptococcus pneumoniae as the cause of diseases classified elsewhere; Z16.11 Resistance to penicillins; G44.319 Acute post-traumatic headache, not intractable; E11.22 Type 2 diabetes mellitus with diabetic chronic kidney disease; I25.10 Atherosclerotic heart disease of native coronary artery without angina pectoris; R63.6 Underweight; E78.00 Pure hypercholesterolemia, unspecified; Z95.1 Presence of aortocoronary bypass graft; E78.5 Hyperlipidemia, unspecified; I48.0 Paroxysmal atrial fibrillation; N18.3 Chronic kidney disease, stage 3 (moderate); D63.0 Anemia in neoplastic disease; D63.1 Anemia in chronic kidney disease; J44.9 Chronic obstructive pulmonary disease, unspecified; S02.2XXA Fracture of nasal bones, initial encounter for closed fracture; W19.XXXA Unspecified fall, initial encounter; Y92.231 Patient bathroom in hospital as the place of occurrence of the external cause

== ENCOUNTER 2018-02-14 13:04 | Inpatient (IN) | payer OTHER, BC ==
[2018-02-14 14:13] VITALS: BMI 18.2
[2018-02-14] MEDS ORDERED: Albuterol-Ipratrop 3 mg / 0.5 (3 ml) UD INH PRN (15:27)
[2018-02-14] MEDS ORDERED: Benzocaine/Menthol (Cepacol) Lozenge PO PRN (15:27)
[2018-02-14] MEDS ORDERED: cefTRIAXone (Rocephin) 1 gm Inj IVPB SCH (15:30)
[2018-02-14] MEDS ORDERED: guaiFENesin 100 mg/5 ml Syrup UD PO PRN (15:30)
[2018-02-14] MEDS: Insulin Regular 100 units/ml SC SCH ×2 (17:06→21:53)
[2018-02-14] MEDS: Nitroglycerin 2% Ointment Foilpak UD TOP SCH ×2 (17:13→21:56)
[2018-02-14] MEDS: Brimonidine 0.2% 50 DROP/5 ML BOTTLE OU SCH (21:52)
[2018-02-15] MEDS: Nitroglycerin 2% Ointment Foilpak UD TOP SCH ×4 (04:52→22:34)
[2018-02-15] MEDS: Insulin Regular 100 units/ml SC SCH ×4 (06:59→22:33)
[2018-02-15 08:18] LABS: HEMOGLOBIN 9.6 g/dL (12.0-16.0); MEAN CELL VOLUME 98.3 fl (81.0-99.0); MEAN CORPUSCULAR HEMOGLOBIN 31.9 pg (27.0-31.0); MEAN CORPUSCULAR HGB CONC 32.5 g/dL (33.0-37.0); RBC 3.01 Mil/uL (3.80-5.20); WHITE BLOOD COUNT 5.5 K/uL (4.8-10.8)
[2018-02-15 08:37] LABS: BLOOD UREA NITROGEN 16 mg/dl (7-17); CALCIUM 8.3 mg/dL (8.4-10.2); GFR AFRICAN-AMERICAN > 60; GFR NON-AFRICAN AMERICAN > 60
[2018-02-15] MEDS: Enoxaparin 30 mg Syringe SC SCH (08:44)
[2018-02-15] MEDS: Pantoprazole 40 mg EC Tab PO SCH (08:45)
[2018-02-15] MEDS ORDERED: Enoxaparin 30 mg Syringe SC SCH (09:00)
--- NOTE | 2018-02-15 11:06 | CP.PCM.HP ---
History of Present Illness - History of Present Illness History of Present Illness: 72 yo female with history of CAD, CHF, MM, DM2 and new onset AFib admitted to TCU on 02/07/2018 as a transfer from [facility] for continuation of IV antibiotics because of Strept Pneumoniae Bacteremia and Pneumonia. 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 After about 7 hrs, patient fell in the bathroom while urinating. Patient claimed she didn't know what happened and sustained a huge frontal contusion hematoma. As per the same thing had happened at home as well in more than 1 occasions [address] scan did not show intracerebral bleed but nasal bone was fractured and patient had frontal hematoma. Patient was transferred to telemetry the next day after complaining of chest pain and was noted to have elevated Troponin. No acute ischemic changes were seen in EKG. She was placed on telemetry for monitoring. Subsequent Troponins were trending down until it normalized. Cardiology consult suggested chest pain probably secondary to trauma and elevated Troponins were likely secondary to demand ischemia from AFib with RVR. CT chest showed moderate left pleural effusion and IR was consulted for thoracenthesis since patient had some dyspnea at rest. About 750 ml of serosanguinous fluid was removed and was sent for testing which showed it was transudate. Being hemodynamically stable she was discharged back to TCU for continuation of IV antibiotics and therapy. Present on Admission - Present on Admission Any Indicators Present on Admission: No History of DVT/PE: No History of Uncontrolled Diabetes: No Urinary Catheter: No Decubitus Ulcer Present: No Review of Systems - Review of Systems All systems: reviewed and no additional remarkable complaints except (aside from those mentioned above, 12 point system review were negative by me) Past Patient History - Infectious Disease Hx of Infectious Diseases: None - Tetanus Immunizations Tetanus Immunization: Unknown - Past Medical History & Family History Past Medical History?: Yes - Past Social History Smoking Status: Never Smoked Chewing Tobacco Use: No Cigar Use: No Alcohol: None Drugs: Denies Home Situation {Lives}: With Family - CARDIAC Hx Atrial Fibrillation: Yes (new onset) Hx Congestive Heart Failure: Yes Hx Hypercholesterolemia: Yes Hx Hypertension: Yes - PULMONARY Hx Chronic Obstructive Pulmonary Disease (COPD): Yes Hx Pneumonia: Yes Other/Comment: pleural effusion-s/p thoracentisis 02/13/2018 - NEUROLOGICAL Hx Neurological Disorder: No Hx Syncope: Yes - HEENT Hx HEENT Problems: Yes Hx Glaucoma: Yes - RENAL Hx Chronic Kidney Disease: Yes - ENDOCRINE/METABOLIC Hx Diabetes Mellitus Type 2: Yes - HEMATOLOGICAL/ONCOLOGICAL Hx AIDS: No Hx Anemia: Yes Hx Human Immunodeficiency Virus (HIV): No Other/Comment: hx multiple myoloma with chemo tx - INTEGUMENTARY Hx Dermatological Problems: No - MUSCULOSKELETAL/RHEUMATOLOGICAL Hx Falls: Yes - GASTROINTESTINAL Hx Gastrointestinal Disorders: No - GENITOURINARY/GYNECOLOGICAL Hx Genitourinary Disorders: No - PSYCHIATRIC Hx Psychophysiologic Disorder: No Hx Substance Use: No - SURGICAL HISTORY Hx Appendectomy: Yes Hx Coronary Artery Bypass Graft: Yes - ANESTHESIA Hx Anesthesia: Yes Hx Anesthesia Reactions: No Hx Malignant Hyperthermia: No Meds Allergies/Adverse Reactions: Allergies Allergy/AdvReac Type Severity Reaction Status Date / Time No Known Allergies Allergy Verified 02/14/18 14:10 Physical Exam - Constitutional Appears: No Acute Distress - Head Exam Head Exam: absent: ATRAUMATIC (frontal hematoma with bilateral periorbital ecchymoses worse on the left) - Eye Exam Eye Exam: absent: Normal appearance (periorbital ecchymoses) - ENT Exam ENT Exam: Mucous Membranes Moist - Neck Exam Neck exam: Negative for: Meningismus - Respiratory Exam Respiratory Exam: absent: Rales, Rhonchi, Wheezes, Respiratory Distress - Cardiovascular Exam Cardiovascular Exam: Bradycardia, +S1, +S2 - GI/Abdominal Exam GI & Abdominal Exam: Soft. absent: Tenderness - Rectal Exam Rectal Exam: Deferred - Extremities Exam Extremities exam: Negative for: calf tenderness, pedal edema - Back Exam Back exam: NORMAL INSPECTION - Neurological Exam Neurological exam: Alert, Oriented x3 - Psychiatric Exam Psychiatric exam: Normal Affect - Skin Skin Exam: Dry, Intact Results - Vital Signs Recent Vital Signs: Last Vital Signs Temp 97.3 F L 02/14/18 21:00 Pulse 68 02/15/18 06:26 Resp 20 02/14/18 21:00 BP 126/52 L 02/15/18 08:46 Pulse Ox 95 02/14/18 21:00 - Labs Result Diagrams: 02/15/18 08:10 02/15/18 08:10 Labs: Laboratory Results - last 24 hr 02/14/18 02/15/18 02/15/18 21:44 06:12 08:10 WBC 5.5 RBC 3.01 L Hgb 9.6 L Hct 29.6 L MCV 98.3 MCH 31.9 H MCHC 32.5 L RDW 19.0 H Plt Count 257 Sodium Potassium Chloride Carbon Dioxide Anion Gap BUN Creatinine Est GFR ( Amer) Est GFR (Non-Af Amer) POC Glucose (mg/dL) 138 H 111 H Random Glucose Calcium 02/15/18 08:10 WBC RBC Hgb Hct MCV MCH MCHC RDW Plt Count Sodium 140 Potassium 3.5 L Chloride 105 Carbon Dioxide 25 Anion Gap 14 BUN 16 Creatinine 0.9 Est GFR ( Amer) > 60 Est GFR (Non-Af Amer) > 60 POC Glucose (mg/dL) Random Glucose 114 H Calcium 8.3 L Assessment & Plan - Assessment and Plan (Free Text) Assessment: 72 yo female with history of CAD, CHF, MM, DM2 and new onset AFib admitted to TCU on 02/07/2018 as a transfer from [facility] for continuation of IV antibiotics because of Strept Pneumoniae Bacteremia and Pneumonia. 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 After about 7 hrs, patient fell in the bathroom while urinating. Patient claimed she didn't know what happened and sustained a huge frontal contusion hematoma. As per the same thing had happened at home as well in more than 1 occasions [address] scan did not show intracerebral bleed but nasal bone was fractured and patient had frontal hematoma. Patient was transferred to telemetry the next day after complaining of chest pain and was noted to have elevated Troponin. No acute ischemic changes were seen in EKG. She was placed on telemetry for monitoring. Subsequent Troponins were trending down until it normalized. Cardiology consult suggested chest pain probably secondary to trauma and elevated Troponins were likely secondary to demand ischemia from AFib with RVR. CT chest showed moderate left pleural effusion and IR was consulted for thoracenthesis since patient had some dyspnea at rest. About 750 ml of serosanguinous fluid was removed and was sent for testing which showed it was transudate. Being hemodynamically stable she was discharged back to TCU for continuation of IV antibiotics and therapy. 1. Chest pain Troponins back to normal chest pain non-cardiac and secondary to trauma elevated Troponins secondary to demand ischemia from RVR with AFib cardiology consulted appreciated 2. Paroxysmal Afib back on NSR at present presently in sinus with normal rate. resumed Cardizem PO with parameters no therapeutic anticoagulation due to recent fall with head trauma and hematoma 3. Fall with frontal hematoma CT head showed nasal bone fracture and frontal hematoma probably secondary vasovagal changes or sudden drop in BP Hematoma will most likely be absorbed over time and nasal bone fracture will heal with no intervention 4. Strep Pneumonia Bacteremia Penicillin resistant Strep Pneumoniae sensitive to Ceftriaxone continue IV Ceftriaxone Dr Pond on ID consult (total 14 days of IV antibiotics) 5. Chronic congestive heart failure ( systolic dysfunction , compensated ) continue Lasix, NTG on CW, low salt diet patient has history CABG and follows up with Dr. Pedro 6. Multiple myeloma Dr Mosley following up patient 7. Bilateral pleural effusion Most likely related to CHF CT chest showed moderate left pleural effusion had thoracenthesis on 02/13 with removal of 750 ml fluid that showed transudate continue management for CHF 8. Anemia likely anemia of chronic disease and MM monitor for now on Ferrous sulfate Hgb 9.6 9. DVT prophylaxis venodyne boots while in bed Lovenox renal dose
[2018-02-15] MEDS: Alum-Mag Hydrox-Simethicone Susp (30 mL) PO PRN ×2 (18:14→22:03)
[2018-02-15] MEDS: Brimonidine 0.2% 50 DROP/5 ML BOTTLE OU SCH (22:55)
[2018-02-16] MEDS: Nitroglycerin 2% Ointment Foilpak UD TOP SCH ×4 (04:34→22:04)
[2018-02-16] MEDS: Insulin Regular 100 units/ml SC SCH ×4 (08:56→21:59)
[2018-02-16] MEDS: Pantoprazole 40 mg EC Tab PO SCH (08:58)
[2018-02-16] MEDS: Enoxaparin 30 mg Syringe SC SCH (09:00)
--- NOTE | 2018-02-16 12:57 | CP.PCM.CON ---
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 Allergies: NKA Review of systems: All remaining review of systems including HEENT, cardiovascular, respiratory, gastrointestinal, genitourinary, musculoskeletal, dermatologic, neurologic, and psychiatric are negative unless mentioned in the HPI. Review of Systems - Review of Systems All systems: reviewed and no additional remarkable complaints except - Constitutional Constitutional: As Per HPI - EENT Eyes: absent: As Per HPI, Blind Spots, Blurred Vision, Change in Vision, Decreased Night Vision, Diplopia, Discharge, Dry Eye, Exophthalmos, Floaters, Irritation, Itchy Eyes, Loss of Peripheral Vision, Pain, Photophobia, Requires Corrective Lenses, Sees Flashes, Spots in Vision, Tunnel Vision, Other Visual Disturbances, Loss of Vision, Other Ears: absent: As Per HPI, Decreased Hearing, Ear Discharge, Ear Pain, Tinnitus, Abnormal Hearing, Disequilibrium, Dizziness, Other Nose/Mouth/Throat: absent: As Per HPI, Epistaxis, Nasal Congestion, Nasal Discharge, Nasal Obstruction, Nasal Trauma, Nose Pain, Post Nasal Drip, Sinus Pain, Sinus Pressure, Bleeding Gums, Change in Voice, Dental Pain, Dry Mouth, Dysphagia, Halitosis, Hoarsness, Lip Swelling, Mouth Lesions, Mouth Pain, Odynophagia, Sore Throat, Throat Swelling, Tongue Swelling, Facial Pain, Neck Pain, Neck Mass, Other - Breasts Breasts: absent: As Per HPI, Change in Shape, Mass, Pain, Nipple Discharge, Nipple Inversion, Skin Changes, Swelling, Other - Cardiovascular Cardiovascular: As Per HPI - Respiratory Respiratory: As Per HPI, Cough, Dyspnea - Gastrointestinal Gastrointestinal: absent: As Per HPI, Abdominal Pain, Belching, Bloating, Change in Bowel Habits, Change in Stool Character, Coffee Ground Emesis, Constipation, Cramping, Diarrhea, Dyspepsia, Dysphagia, Early Satiety, Excessive Flatus, Fecal Incontinence, Heartburn, Hematemesis, Hematochezia, Loose Stools, Melena, Nausea, Odynophagia, Temesmus, Vomiting, Other - Genitourinary Genitourinary: absent: As Per HPI, Change in Urinary Stream, Difficulty Urinating, Dysuria, Flank Pain, Hematuria, Pyuria, Nocturia, Urinary Incontinence, Urinary Frequency, Urinary Hesitance, Urinary Urgency, Voiding Freq/Small Amts, Freq UTI, Hx Renal/Bladder Calculi, Hx /Renal Surgery, Bladder Distension, Other - Reproductive: Female Reproductive:Female: absent: As Per HPI, Amenorrhea, Amenorrhea/ Control, Currently Menstual, Cycle <21 Days, Cycle >35 Days, Cycle Variable, Menses 1-7 Days, Menses >/= 8 Days, Menses Variable, Cycle > 4 Weeks Between, No Menses for 6 Months, Heavy Menses, Light Menses, Normal Menses, Spotting Between Cycles , S/P Hysterectomy, Menopausal, Post Menopausal, Premenarche, Abnormal Vaginal Bleeding, Dysmenorrhea, Dyspareunia, Genital Lesions, Genital Pruritis, Pelvic Pain, Prolapse Symptoms, Sexual Dysfunction, Vaginal Discharge, Vaginal Dryness , Vaginal Odor, Vaginal Pruritis, Other - Menstruation Menstruation: absent: As Per HPI, Amenorrhea, Amenorrhea/ Control, Currently Menstual, Cycle <21 Days, Cycle >35 Days, Cycle Variable, Menses 1-7 Days, Menses >/= 8 Days, Menses Variable, Cycle > 4 Weeks Between, No Menses for 6 Months, Heavy Menses, Light Menses, Normal Menses, Spotting Between Cycles , S/P Hysterectomy, Menopausal, Post Menopausal, Premenarche, Abnormal Vaginal Bleeding, Dysmenorrhea, Other - Musculoskeletal Musculoskeletal: absent: As Per HPI, Abnormal Gait, Arthralgias, Atrophy, Back Pain, Deformity, Joint Swelling, Limited Range of Motion, Loss of Height, Muscle Cramps, Muscle Weakness, Myalgias, Neck Pain, Numbness, Radiating Pain into Limb, Stiffness, Tingling, Other - Integumentary Integumentary: absent: As Per HPI, Acne, Alopecia, Bleeding Lesions, Change in Hair, Change in Nails, Change in Pigmentation, Changing Lesions, Dry Skin, Erythema, Furuncle, Hirsutism, Lesions, New Lesions, Non-Healing Lesions, Photosensitivity, Pruritus, Rash, Skin Pain, Skin Ulcer, Sores, Striae, Swelling , Unusual Bruising, Wounds, Jaundice, Other - Neurological Neurological: absent: As Per HPI, Abnormal Gait, Abnormal Hearing, Abnormal Movements, Abnormal Speech, Behavioral Changes, Burning Sensations, Confusion, Convulsions, Disequilibrium, Dizziness, Numbness, Focal Weakness, Frequent Falls , Headaches, Lack of Coordination, Loss of Vision, Memory Loss, Paresthesias, Radicular Pain, Restless Legs, Sensory Deficit, Syncope, Tingling, Tremor, Vertigo, Weakness, Other Visual Disturbances, Other - Psychiatric Psychiatric: absent: As Per HPI, Abnormal Sleep Pattern, Anhedonia, Anxiety, Auditory Hallucinations, Behavioral Changes, Change in Appetite, Change in Libido, Confusion, Depression, Difficulty Concentrating, Hallucinations, Homicidal Ideation, Hopelessness, Irritability, Memory Loss, Mood Swings, Panic Attacks, Paranoia, Suicidal Ideation, Visual Hallucinations, Tactile Hallucinations, Other - Endocrine Endocrine: absent: As Per HPI, Change in Body Appearance, Change in Libido, Cold Intolorance, Deepening of Voice, Excessive Sweating, Fatigue, Flushing, Heat Intolorance, Increase in Ring/Shoe/Hat Size, Palpitations, Polydipsia, Polyphagia, Polyuria, Other - Hematologic/Lymphatic Hematologic: absent: As Per HPI, Easy Bleeding, Easy Bruising, Lymphadenopathy, Other Past Patient History - Infectious Disease Hx of Infectious Diseases: None - Tetanus Immunizations Tetanus Immunization: Unknown - Past Medical History & Family History Past Medical History?: Yes - Past Social History Smoking Status: Never Smoked Chewing Tobacco Use: No Cigar Use: No Alcohol: None Drugs: Denies Home Situation {Lives}: With Family - CARDIAC Hx Atrial Fibrillation: Yes (new onset) Hx Congestive Heart Failure: Yes Hx Hypercholesterolemia: Yes Hx Hypertension: Yes - PULMONARY Hx Chronic Obstructive Pulmonary Disease (COPD): Yes Hx Pneumonia: Yes Other/Comment: pleural effusion-s/p thoracentisis 02/13/2018 - NEUROLOGICAL Hx Neurological Disorder: No Hx Syncope: Yes - HEENT Hx HEENT Problems: Yes Hx Glaucoma: Yes - RENAL Hx Chronic Kidney Disease: Yes - ENDOCRINE/METABOLIC Hx Diabetes Mellitus Type 2: Yes - HEMATOLOGICAL/ONCOLOGICAL Hx AIDS: No Hx Anemia: Yes Hx Human Immunodeficiency Virus (HIV): No Other/Comment: hx multiple myoloma with chemo tx - INTEGUMENTARY Hx Dermatological Problems: No - MUSCULOSKELETAL/RHEUMATOLOGICAL Hx Falls: Yes - GASTROINTESTINAL Hx Gastrointestinal Disorders: No - GENITOURINARY/GYNECOLOGICAL Hx Genitourinary Disorders: No - PSYCHIATRIC Hx Psychophysiologic Disorder: No Hx Substance Use: No - SURGICAL HISTORY Hx Appendectomy: Yes Hx Coronary Artery Bypass Graft: Yes - ANESTHESIA Hx Anesthesia: Yes Hx Anesthesia Reactions: No Hx Malignant Hyperthermia: No Meds Allergies/Adverse Reactions: Allergies Allergy/AdvReac Type Severity Reaction Status Date / Time No Known Allergies Allergy Verified 02/14/18 14:10 - Medications Medications: Current Medications Acetaminophen (Tylenol 325mg Tab) 325 mg PO Q4 PRN PRN Reason: Pain, Mild (1-3) Last Admin: 02/15/18 13:52 Dose: 325 mg Al Hydrox/Mg Hydrox/Simethicone (Maalox Plus 30 Ml) 30 ml PO Q4 PRN PRN Reason: Indigestion / Heartburn Last Admin: 02/15/18 22:03 Dose: 30 ml Albuterol/Ipratropium (Duoneb 3 Mg/0.5 Mg (3 Ml) Ud) 3 ml INH RQ6 PRN PRN Reason: wheezing Allopurinol (Zyloprim) 100 mg PO DAILY [facility] Last Admin: 02/16/18 08:58 Dose: 100 mg Aspirin (Ecotrin) 81 mg PO DAILY [facility] Last Admin: 02/16/18 08:58 Dose: 81 mg Atorvastatin Calcium (Lipitor) 10 mg PO DAILY [facility] Last Admin: 02/16/18 08:55 Dose: Not Given Benzocaine/Menthol (Cepacol Sore Throat) 1 figueroa PO Q3H PRN PRN Reason: Sore Throat Last Admin: 02/15/18 22:34 Dose: 1 figueroa Brimonidine Tartrate (Alphagan 0.2% Opht) 1 drop OU HS [facility] Last Admin: 02/15/18 22:55 Dose: 1 drop Diltiazem HCl (Cardizem) 60 mg PO Q8@0600,1400,2200 [facility] Last Admin: 02/16/18 05:55 Dose: Not Given Docusate Sodium (Colace) 100 mg PO BID PRN PRN Reason: Constipation Enoxaparin Sodium (Lovenox) 30 mg SC DAILY [facility] PRN Reason: Protocol Last Admin: 02/16/18 09:00 Dose: 30 mg Ferrous Sulfate (Feosol) 325 mg PO TID [facility] Last Admin: 02/16/18 12:50 Dose: 325 mg Furosemide (Lasix) 20 mg PO DAILY [facility] Last Admin: 02/16/18 08:58 Dose: 20 mg Guaifenesin (Robitussin) 100 mg PO QID PRN PRN Reason: cough Ceftriaxone Sodium 1 gm/ (Sodium Chloride) 100 mls @ 100 mls/hr IVPB Q12@0500, 1700 [facility] Last Admin: 02/15/18 17:24 Dose: 100 mls/hr Insulin Human Regular (Humulin R) 0 units SC ACHS [facility] PRN Reason: Protocol Last Admin: 02/16/18 11:18 Dose: Not Given Nitroglycerin (Nitro-Bid 2% Oint) 1 ea TOP Q6 [facility] Last Admin: 02/16/18 08:59 Dose: 1 ea Pantoprazole Sodium (Protonix Ec Tab) 40 mg PO DAILY [facility] Last Admin: 02/16/18 08:58 Dose: 40 mg Sitagliptin Phosphate (Januvia) 25 mg PO DAILY [facility] Last Admin: 02/16/18 08:58 Dose: 25 mg Physical Exam - Constitutional Appears: Chronically Ill - Head Exam Head Exam: NORMOCEPHALIC Additional comments: ecchymoses around eyes / forehead - Eye Exam Eye Exam: EOMI, Normal appearance, PERRL Pupil Exam: NORMAL ACCOMODATION, PERRL - ENT Exam ENT Exam: Mucous Membranes Moist, Normal Exam - Neck Exam Neck exam: Positive for: Normal Inspection - Respiratory Exam Respiratory Exam: Decreased Breath Sounds, Prolonged Expiratory Phase, Rales - Cardiovascular Exam Cardiovascular Exam: Irregular Rhythm, REGULAR RHYTHM, +S1 - GI/Abdominal Exam GI & Abdominal Exam: Diminished Bowel Sounds, Soft. absent: Tenderness - Rectal Exam Rectal Exam: NORMAL INSPECTION - Exam Exam: Circumcision, NORMAL INSPECTION - Extremities Exam Extremities exam: Positive for: normal inspection - Back Exam Back exam: NORMAL INSPECTION - Neurological Exam Neurological exam: Alert, CN II-XII Intact, Normal Gait, Oriented x3, Reflexes Normal - Psychiatric Exam Psychiatric exam: Normal Affect, Normal Mood - Skin Skin Exam: Dry, Intact, Normal Color, Warm Results - Vital Signs Recent Vital Signs: Last Vital Signs Temp 97.9 F 02/16/18 09:00 Pulse 56 L 02/16/18 09:00 Resp 20 02/16/18 09:00 BP 135/71 02/16/18 09:00 Pulse Ox 99 02/16/18 09:00 - Labs Result Diagrams: 02/15/18 08:10 02/15/18 08:10 Labs: Laboratory Results - last 24 hr 02/15/18 02/15/18 02/16/18 16:45 21:00 06:05 POC Glucose (mg/dL) 104 145 H 113 H 02/16/18 11:09 POC Glucose (mg/dL) 124 H Assessment & Plan (1) Bacteremia Status: Acute (2) CHF exacerbation Status: Acute (3) Monoclonal gammopathy Status: Acute (4) Nasal fracture Status: Acute (5) Pneumococcal sepsis Status: Acute (6) Pneumonia Status: Acute - Assessment and Plan (Free Text) Assessment: improving on IV rx cont IV rx until Monday then switch to PO Keflex for 7 days
[2018-02-16] MEDS: Brimonidine 0.2% 50 DROP/5 ML BOTTLE OU SCH (22:02)
[2018-02-17] MEDS: Nitroglycerin 2% Ointment Foilpak UD TOP SCH ×4 (04:22→21:13)
[2018-02-17] MEDS: Insulin Regular 100 units/ml SC SCH ×4 (06:41→21:06)
[2018-02-17] MEDS: Enoxaparin 30 mg Syringe SC SCH (08:57)
[2018-02-17] MEDS: Pantoprazole 40 mg EC Tab PO SCH (08:58)
[2018-02-17] MEDS: Brimonidine 0.2% 50 DROP/5 ML BOTTLE OU SCH (21:10)
[2018-02-18] MEDS: Nitroglycerin 2% Ointment Foilpak UD TOP SCH ×4 (04:42→21:11)
[2018-02-18] MEDS: Insulin Regular 100 units/ml SC SCH ×4 (08:04→21:12)
[2018-02-18] MEDS: Pantoprazole 40 mg EC Tab PO SCH (08:54)
[2018-02-18] MEDS: Enoxaparin 30 mg Syringe SC SCH (08:55)
[2018-02-18] MEDS: Brimonidine 0.2% 50 DROP/5 ML BOTTLE OU SCH (21:09)
--- NOTE | 2018-02-18 22:44 | CP.PCM.CON ---
History of Present Illness - History of Present Illness History of Present Illness: 72 year old female with a history of CAD s/p CABG, HTN, DM, multiple myeloma on treatment, transferred to TCU for rehab. The patient was treated for bradycardia. In regard to her multiple myeloma, she has been receiving Velcade and Revlimid (reduced dosing). She had been on dexamethasone which was discontinued due to hyperglycemia complications. Past medical history: CAD, HTN, DM, multiple myeloma Past surgical history: CABG Family history: Denies hematologic and oncologic problems Social history: Denies tobacco, alcohol, and illicit drug use. Allergies: NKA Review of systems: All remaining review of systems including HEENT, cardiovascular, respiratory, gastrointestinal, genitourinary, musculoskeletal, dermatologic, neurologic, and psychiatric are negative unless mentioned in the HPI. Past Patient History - Infectious Disease Hx of Infectious Diseases: None - Tetanus Immunizations Tetanus Immunization: Unknown - Past Medical History & Family History Past Medical History?: Yes - Past Social History Smoking Status: Never Smoked Chewing Tobacco Use: No Cigar Use: No Alcohol: None Drugs: Denies Home Situation {Lives}: With Family - CARDIAC Hx Atrial Fibrillation: Yes (new onset) Hx Congestive Heart Failure: Yes Hx Hypercholesterolemia: Yes Hx Hypertension: Yes - PULMONARY Hx Chronic Obstructive Pulmonary Disease (COPD): Yes Hx Pneumonia: Yes Other/Comment: pleural effusion-s/p thoracentisis 02/13/2018 - NEUROLOGICAL Hx Neurological Disorder: No Hx Syncope: Yes - HEENT Hx HEENT Problems: Yes Hx Glaucoma: Yes - RENAL Hx Chronic Kidney Disease: Yes - ENDOCRINE/METABOLIC Hx Diabetes Mellitus Type 2: Yes - HEMATOLOGICAL/ONCOLOGICAL Hx AIDS: No Hx Anemia: Yes Hx Human Immunodeficiency Virus (HIV): No Other/Comment: hx multiple myoloma with chemo tx - INTEGUMENTARY Hx Dermatological Problems: No - MUSCULOSKELETAL/RHEUMATOLOGICAL Hx Falls: Yes - GASTROINTESTINAL Hx Gastrointestinal Disorders: No - GENITOURINARY/GYNECOLOGICAL Hx Genitourinary Disorders: No - PSYCHIATRIC Hx Psychophysiologic Disorder: No Hx Substance Use: No - SURGICAL HISTORY Hx Appendectomy: Yes Hx Coronary Artery Bypass Graft: Yes - ANESTHESIA Hx Anesthesia: Yes Hx Anesthesia Reactions: No Hx Malignant Hyperthermia: No Meds Allergies/Adverse Reactions: Allergies Allergy/AdvReac Type Severity Reaction Status Date / Time No Known Allergies Allergy Verified 02/14/18 14:10 - Medications Medications: Current Medications Acetaminophen (Tylenol 325mg Tab) 325 mg PO Q4 PRN PRN Reason: Pain, Mild (1-3) Last Admin: 02/15/18 13:52 Dose: 325 mg Al Hydrox/Mg Hydrox/Simethicone (Maalox Plus 30 Ml) 30 ml PO Q4 PRN PRN Reason: Indigestion / Heartburn Last Admin: 02/15/18 22:03 Dose: 30 ml Albuterol/Ipratropium (Duoneb 3 Mg/0.5 Mg (3 Ml) Ud) 3 ml INH RQ6 PRN PRN Reason: wheezing Allopurinol (Zyloprim) 100 mg PO DAILY [facility] Last Admin: 02/18/18 08:52 Dose: 100 mg Aspirin (Ecotrin) 81 mg PO DAILY [facility] Last Admin: 02/18/18 08:47 Dose: 81 mg Atorvastatin Calcium (Lipitor) 10 mg PO DAILY [facility] Last Admin: 02/18/18 08:51 Dose: 10 mg Benzocaine/Menthol (Cepacol Sore Throat) 1 figueroa PO Q3H PRN PRN Reason: Sore Throat Last Admin: 02/15/18 22:34 Dose: 1 figueroa Brimonidine Tartrate (Alphagan 0.2% Opht) 1 drop OU HS [facility] Last Admin: 02/18/18 21:09 Dose: 1 drop Cephalexin Monohydrate (Keflex) 500 mg PO TID [facility] PRN Reason: Protocol Stop: 02/25/18 10:36 Last Admin: 02/18/18 17:37 Dose: 500 mg Diltiazem HCl (Cardizem) 60 mg PO Q8@0600,1400,2200 [facility] Last Admin: 02/18/18 21:09 Dose: 60 mg Docusate Sodium (Colace) 100 mg PO BID PRN PRN Reason: Constipation Enoxaparin Sodium (Lovenox) 30 mg SC DAILY [facility] PRN Reason: Protocol Last Admin: 02/18/18 08:55 Dose: 30 mg Ferrous Sulfate (Feosol) 325 mg PO TID [facility] Last Admin: 02/18/18 17:38 Dose: 325 mg Furosemide (Lasix) 20 mg PO DAILY [facility] Last Admin: 02/18/18 09:53 Dose: 20 mg Guaifenesin (Robitussin) 100 mg PO QID PRN PRN Reason: cough Insulin Human Regular (Humulin R) 0 units SC ACHS [facility] PRN Reason: Protocol Last Admin: 02/18/18 21:12 Dose: 1 u Nitroglycerin (Nitro-Bid 2% Oint) 1 ea TOP Q6 [facility] Last Admin: 02/18/18 21:11 Dose: 1 ea Pantoprazole Sodium (Protonix Ec Tab) 40 mg PO DAILY [facility] Last Admin: 02/18/18 08:54 Dose: 40 mg Sitagliptin Phosphate (Januvia) 25 mg PO DAILY [facility] Last Admin: 02/18/18 08:50 Dose: 25 mg Physical Exam - Eye Exam Eye Exam: Normal appearance - ENT Exam ENT Exam: Mucous Membranes Dry - Respiratory Exam Respiratory Exam: NORMAL BREATHING PATTERN - Cardiovascular Exam Cardiovascular Exam: +S1, +S2 - GI/Abdominal Exam GI & Abdominal Exam: Normal Bowel Sounds - Extremities Exam Extremities exam: Positive for: normal inspection - Neurological Exam Neurological exam: Oriented x3 - Psychiatric Exam Psychiatric exam: Normal Affect, Normal Mood - Skin Skin Exam: Warm Results - Vital Signs Recent Vital Signs: Last Vital Signs Temp 97.2 F L 02/18/18 20:07 Pulse 66 02/18/18 21:11 Resp 20 02/18/18 20:07 BP 136/56 L 02/18/18 21:11 Pulse Ox 93 L 02/18/18 20:07 - Labs Result Diagrams: 02/15/18 08:10 02/15/18 08:10 Labs: Laboratory Results - last 24 hr 02/18/18 02/18/18 02/18/18 05:40 10:38 16:33 POC Glucose (mg/dL) 101 158 H 137 H 02/18/18 20:53 POC Glucose (mg/dL) 156 H Assessment & Plan (1) Anemia Assessment and Plan: chronic disease and multiple myeloma H/H stable Status: Acute (2) Multiple myeloma Assessment and Plan: outpatient treatment Thank you for this interesting consult. Status: Acute
[2018-02-19] MEDS: Nitroglycerin 2% Ointment Foilpak UD TOP SCH ×4 (04:18→22:08)
[2018-02-19] MEDS: Enoxaparin 30 mg Syringe SC SCH (09:06)
[2018-02-19] MEDS: Pantoprazole 40 mg EC Tab PO SCH (09:15)
[2018-02-19] MEDS: Insulin Regular 100 units/ml SC SCH ×4 (09:16→22:06)
[2018-02-19] MEDS: Brimonidine 0.2% 50 DROP/5 ML BOTTLE OU SCH (22:06)
[2018-02-20] MEDS: Nitroglycerin 2% Ointment Foilpak UD TOP SCH ×4 (04:45→21:43)
[2018-02-20] MEDS: Insulin Regular 100 units/ml SC SCH ×4 (08:35→21:12)
[2018-02-20] MEDS: Enoxaparin 30 mg Syringe SC SCH (08:57)
[2018-02-20] MEDS: Pantoprazole 40 mg EC Tab PO SCH (08:58)
--- NOTE | 2018-02-20 11:57 | CP.PCM.PN ---
Subjective - Date & Time of Evaluation Date of Evaluation: 02/20/18 Time of Evaluation: 15:00 - Subjective Subjective: No complaints. Objective - Vital Signs/Intake and Output Vital Signs (last 24 hours): Temp Pulse Resp BP Pulse Ox 98.1 F 58 L 18 141/62 96 02/20/18 09:00 02/20/18 09:00 02/20/18 09:00 02/20/18 09:00 02/20/18 09:00 - Medications Medications: Current Medications Acetaminophen (Tylenol 325mg Tab) 325 mg PO Q4 PRN PRN Reason: Pain, Mild (1-3) Last Admin: 02/15/18 13:52 Dose: 325 mg Al Hydrox/Mg Hydrox/Simethicone (Maalox Plus 30 Ml) 30 ml PO Q4 PRN PRN Reason: Indigestion / Heartburn Last Admin: 02/15/18 22:03 Dose: 30 ml Albuterol/Ipratropium (Duoneb 3 Mg/0.5 Mg (3 Ml) Ud) 3 ml INH RQ6 PRN PRN Reason: wheezing Allopurinol (Zyloprim) 100 mg PO DAILY [facility] Last Admin: 02/20/18 08:55 Dose: 100 mg Aspirin (Ecotrin) 81 mg PO DAILY [facility] Last Admin: 02/20/18 08:56 Dose: 81 mg Atorvastatin Calcium (Lipitor) 10 mg PO DAILY [facility] Last Admin: 02/20/18 08:55 Dose: 10 mg Benzocaine/Menthol (Cepacol Sore Throat) 1 figueroa PO Q3H PRN PRN Reason: Sore Throat Last Admin: 02/15/18 22:34 Dose: 1 figueroa Brimonidine Tartrate (Alphagan 0.2% Opht) 1 drop OU HS [facility] Last Admin: 02/19/18 22:06 Dose: 1 drop Cephalexin Monohydrate (Keflex) 500 mg PO TID [facility] PRN Reason: Protocol Stop: 02/25/18 10:36 Last Admin: 02/20/18 08:55 Dose: 500 mg Diltiazem HCl (Cardizem) 30 mg PO Q8@0600,1400,2200 [facility] Last Admin: 02/20/18 06:16 Dose: Not Given Docusate Sodium (Colace) 100 mg PO BID PRN PRN Reason: Constipation Enoxaparin Sodium (Lovenox) 30 mg SC DAILY [facility] PRN Reason: Protocol Last Admin: 02/20/18 08:57 Dose: 30 mg Ferrous Sulfate (Feosol) 325 mg PO TID [facility] Last Admin: 02/20/18 08:56 Dose: 325 mg Furosemide (Lasix) 20 mg PO DAILY [facility] Last Admin: 02/20/18 08:56 Dose: 20 mg Guaifenesin (Robitussin) 100 mg PO QID PRN PRN Reason: cough Insulin Human Regular (Humulin R) 0 units SC ACHS [facility] PRN Reason: Protocol Last Admin: 02/20/18 08:35 Dose: Not Given Lisinopril (Zestril) 10 mg PO DAILY [facility] Last Admin: 02/20/18 08:56 Dose: 10 mg Nitroglycerin (Nitro-Bid 2% Oint) 1 ea TOP Q6 [facility] Last Admin: 02/20/18 04:45 Dose: Not Given Pantoprazole Sodium (Protonix Ec Tab) 40 mg PO DAILY [facility] Last Admin: 02/20/18 08:58 Dose: 40 mg Sitagliptin Phosphate (Januvia) 25 mg PO DAILY [facility] Last Admin: 02/20/18 08:15 Dose: 25 mg - Labs Labs: 02/15/18 08:10 02/15/18 08:10 - Head Exam Head Exam: ATRAUMATIC - Eye Exam Eye Exam: Normal appearance - ENT Exam ENT Exam: Mucous Membranes Dry - Respiratory Exam Respiratory Exam: NORMAL BREATHING PATTERN - Cardiovascular Exam Cardiovascular Exam: +S1, +S2 - GI/Abdominal Exam GI & Abdominal Exam: Normal Bowel Sounds Assessment and Plan (1) Anemia Assessment & Plan: chronic disease and multiple myeloma Status: Acute (2) Multiple myeloma Assessment & Plan: outpatient treatment Status: Acute
--- NOTE | 2018-02-20 11:59 | CP.PCM.PN ---
Subjective - Date & Time of Evaluation Date of Evaluation: 02/20/18 Time of Evaluation: 12:00 - Subjective Subjective: Patient seen and examined . Feeling dizzy while lying in bed. HR as low as 52 No acute issues overnight. Objective - Vital Signs/Intake and Output Vital Signs (last 24 hours): Temp Pulse Resp BP Pulse Ox 98.1 F 58 L 18 141/62 96 02/20/18 09:00 02/20/18 09:00 02/20/18 09:00 02/20/18 09:00 02/20/18 09:00 - Medications Medications: Current Medications Acetaminophen (Tylenol 325mg Tab) 325 mg PO Q4 PRN PRN Reason: Pain, Mild (1-3) Last Admin: 02/15/18 13:52 Dose: 325 mg Al Hydrox/Mg Hydrox/Simethicone (Maalox Plus 30 Ml) 30 ml PO Q4 PRN PRN Reason: Indigestion / Heartburn Last Admin: 02/15/18 22:03 Dose: 30 ml Albuterol/Ipratropium (Duoneb 3 Mg/0.5 Mg (3 Ml) Ud) 3 ml INH RQ6 PRN PRN Reason: wheezing Allopurinol (Zyloprim) 100 mg PO DAILY [facility] Last Admin: 02/20/18 08:55 Dose: 100 mg Aspirin (Ecotrin) 81 mg PO DAILY [facility] Last Admin: 02/20/18 08:56 Dose: 81 mg Atorvastatin Calcium (Lipitor) 10 mg PO DAILY [facility] Last Admin: 02/20/18 08:55 Dose: 10 mg Benzocaine/Menthol (Cepacol Sore Throat) 1 figueroa PO Q3H PRN PRN Reason: Sore Throat Last Admin: 02/15/18 22:34 Dose: 1 figueroa Brimonidine Tartrate (Alphagan 0.2% Opht) 1 drop OU HS [facility] Last Admin: 02/19/18 22:06 Dose: 1 drop Cephalexin Monohydrate (Keflex) 500 mg PO TID [facility] PRN Reason: Protocol Stop: 02/25/18 10:36 Last Admin: 02/20/18 08:55 Dose: 500 mg Diltiazem HCl (Cardizem) 30 mg PO Q8@0600,1400,2200 [facility] Last Admin: 02/20/18 06:16 Dose: Not Given Docusate Sodium (Colace) 100 mg PO BID PRN PRN Reason: Constipation Enoxaparin Sodium (Lovenox) 30 mg SC DAILY [facility] PRN Reason: Protocol Last Admin: 02/20/18 08:57 Dose: 30 mg Ferrous Sulfate (Feosol) 325 mg PO TID [facility] Last Admin: 02/20/18 08:56 Dose: 325 mg Furosemide (Lasix) 20 mg PO DAILY [facility] Last Admin: 02/20/18 08:56 Dose: 20 mg Guaifenesin (Robitussin) 100 mg PO QID PRN PRN Reason: cough Insulin Human Regular (Humulin R) 0 units SC ACHS [facility] PRN Reason: Protocol Last Admin: 02/20/18 08:35 Dose: Not Given Lisinopril (Zestril) 10 mg PO DAILY [facility] Last Admin: 02/20/18 08:56 Dose: 10 mg Nitroglycerin (Nitro-Bid 2% Oint) 1 ea TOP Q6 [facility] Last Admin: 02/20/18 04:45 Dose: Not Given Pantoprazole Sodium (Protonix Ec Tab) 40 mg PO DAILY [facility] Last Admin: 02/20/18 08:58 Dose: 40 mg Sitagliptin Phosphate (Januvia) 25 mg PO DAILY [facility] Last Admin: 02/20/18 08:15 Dose: 25 mg - Labs Labs: 02/15/18 08:10 02/15/18 08:10 - Constitutional Appears: Non-toxic, No Acute Distress, Cachectic, Chronically Ill - Head Exam Additional comments: frontal hematoma saad ocular echymosis - Eye Exam Eye Exam: EOMI, PERRL - ENT Exam ENT Exam: Mucous Membranes Moist, Normal Exam - Neck Exam Neck Exam: Full ROM, Normal Inspection - Respiratory Exam Respiratory Exam: Clear to Ausculation Bilateral, NORMAL BREATHING PATTERN. absent: Rales, Rhonchi, Wheezes - Cardiovascular Exam Cardiovascular Exam: REGULAR RHYTHM, RRR, +S1, +S2. absent: JVD - GI/Abdominal Exam GI & Abdominal Exam: Soft, Normal Bowel Sounds. absent: Distended, Guarding, Tenderness, Rebound - Rectal Exam Rectal Exam: Deferred - Extremities Exam Extremities Exam: Full ROM, Normal Capillary Refill, Normal Inspection. absent : Calf Tenderness, Pedal Edema - Back Exam Back Exam: NORMAL INSPECTION - Neurological Exam Neurological Exam: Alert, Awake, CN II-XII Intact, Oriented x3 - Psychiatric Exam Psychiatric exam: Flat Affect - Skin Skin Exam: Dry, Warm Assessment and Plan - Assessment and Plan (Free Text) Assessment: 72 yo female with history of CAD, CHF, MM, DM2 and new onset AFib admitted to TCU on 02/07/2018 as a transfer from [facility] for continuation of IV antibiotics because of Strept Pneumoniae Bacteremia and Pneumonia. 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 After about 7 hrs, patient fell in the bathroom while urinating. Patient claimed she didn't know what happened and sustained a huge frontal contusion hematoma and nasal bone fracture. As per the same thing had happened at home as well in more than [address] scan did not show intracerebral bleed but nasal bone was fractured and patient had frontal hematoma. Patient was transferred to telemetry the next day after complaining of chest pain and was noted to have elevated Troponin. No acute ischemic changes were seen in EKG. She was placed on telemetry for monitoring. Subsequent Troponins were trending down until it normalized. Cardiology consult suggested chest pain probably secondary to trauma and elevated Troponins were likely secondary to demand ischemia from AFib with RVR. CT chest showed moderate left pleural effusion and IR was consulted for thoracenthesis since patient had some dyspnea at rest. About 750 ml of serosanguinous fluid was removed and was sent for testing which showed it was transudate. Being hemodynamically stable she was discharged back to TCU for continuation of IV antibiotics and therapy. At present patient in TCU but feeling dizzy while lying in bed and unable to do therapy . Called and discussed case with her exchange teller Dr. Pedro who confirms the diagnosis of SSS during a prior admission at [facility] at which time patient deferred placement of pacemaker .Dr Bartlett recommended evaluation of patient by Dr. Isaac at [facility] Called cardiology consult Dr. Isaac today for evaluation ( recommended keeping patient in TCU )Will hold off therapy for now 1. Sick Sinus Syndrome with dizziness hold therapy for now cardiology eval with Dr. Isaac for possible pacemaker placement Stat 12 lead EKG 2. Paroxysmal Afib back on NSR on Cardizem PO with parameters. Decreased dose from 60 mg TID to 30 mg pO TID no therapeutic anticoagulation due to recent fall with head trauma and hematoma 3. Fall with frontal hematoma CT head showed nasal bone fracture and frontal hematoma Hematoma will most likely be absorbed over time and nasal bone fracture will heal with no intervention 4. Strep Pneumonia Bacteremia Penicillin resistant Strep Pneumoniae sensitive to Ceftriaxone Received IV Ceftriaxone for 2 weeks Switched to Keflex PO for [address] Pond on ID consult 5. Chronic congestive heart failure ( systolic dysfunction , compensated ) continue Lasix, NTG , low salt diet patient has history CABG and follows up with Dr. Pedro 6. Multiple myeloma Dr Mosley following up patient 7. Bilateral pleural effusion Most likely related to CHF CT chest showed moderate left pleural effusion had thoracenthesis on 02/13 with removal of 750 ml fluid that showed transudate continue management for CHF 8. Anemia likely anemia of chronic disease and MM monitor for now on Ferrous sulfate Hgb 9.6 9. Chest pain-- resolved Troponins back to normal chest pain non-cardiac and secondary to trauma elevated Troponins secondary to demand ischemia from RVR with AFib cardiology consult appreciated 10. DVT prophylaxis venodyne boots while in bed Lovenox renal dose
[2018-02-20] MEDS: Brimonidine 0.2% 50 DROP/5 ML BOTTLE OU SCH (21:45)
[2018-02-21] MEDS: Nitroglycerin 2% Ointment Foilpak UD TOP SCH ×4 (04:27→21:53)
[2018-02-21] MEDS: Insulin Regular 100 units/ml SC SCH ×4 (06:30→21:47)
[2018-02-21] MEDS: Pantoprazole 40 mg EC Tab PO SCH (08:24)
[2018-02-21] MEDS: Enoxaparin 30 mg Syringe SC SCH (08:32)
--- NOTE | 2018-02-21 10:00 | CP.PCM.CON ---
History of Present Illness - History of Present Illness History of Present Illness: this 72-year-old female, a hypertensive and a diabetic with a history of myeloma and chronic kidney disease was sent here to the transitional care unit after a brief period of treatment for congestive cardiac failure at [facility]. The patient has had coronary bypass graft surgery couple of years back and has been subsequently treated for congestive cardiac failure. She was recently hospitalized at [facility], where a diagnosis of sick sinus syndrome was made and a pacemaker insertion was recommended which the patient and her family declined. The patient has had a bout of atrial fibrillation during this hospitalization which promptly responded to Cardizem. She was briefly watched on the telemetry unit where she demonstrated steady sinus rhythm at physiological rates and was transferred to the transitional care unit again. Patient had a syncopal episode while using the bathroom and has suffered extensive facial injuries which includes a large hematoma on the forehead and injuries to her nose. There is no significant intracranial injury. And the patient has been neurologically intact. She denies earlier episodes of syncope or dizziness. She denies palpitations. She does admit to having developed significant effort intolerance and pedal edema both of which have been treated with oral diuretics. A Holter recording in November of this year did not show any significant arrhythmias or AV conduction abnormalities. Physical examination shows a thin built elderly female quite alert awake and coherent. Large areas of ecchymosis are seen on her face and a moderate sized hematoma on her forehead. Her heart rate was 70 bpm regular and her blood pressure lying down was 140/70 mmHg and upon standing up was 136/70 mmHg. The patient denied any lightheadedness upon sitting up or standing up. Her jugular venous pressure was not elevated. There was no edema over lower extremities. The pedal pulses were feeble but distinctive present. There was a very brief ejection systolic murmur in the aortic area. There was no S3 gallop and the first and second heart sounds were well heard. There were no rales. Her abdomen was soft and liver and spleen were not palpable. Her electrocardiogram showed sinus rhythm with ST depression in lead 1, aVL and QS complexes in V1 and V2. Approximately 10 days back a bout of atrial fibrillation was recorded on the electrocardiogram. Couple of echocardiograms during last 3 months show significantly hypertrophied left ventricle with essentially a preserved systolic function a small area of hypokinesis near the apical septum with a dilated left atrium and significantly elevated pulmonary artery systolic pressure.her lab data was noted. Impression: sick sinus syndrome with syncope. The patient has had bouts of atrial fibrillation interspersed with periods of sinus bradycardia. Stable coronary artery disease with status post coronary bypass graft surgery. Diabetes mellitus hypertension. Multiple myeloma with chronic kidney disease. I have discussed her case with her primary care physician, Dr. Pedro. He indicates that there have been earlier discussions with the patient and her family regarding possible need for permanent pacemaker implant. He agrees that following this episode of syncope she does urgently require a permanent pacemaker implant. I have explained this to the patient and she also agrees. The patient is scheduled to have pacemaker implant Day after tomorrow morning. Past Patient History - Infectious Disease Hx of Infectious Diseases: None - Tetanus Immunizations Tetanus Immunization: Unknown - Past Medical History & Family History Past Medical History?: Yes - Past Social History Smoking Status: Never Smoked Chewing Tobacco Use: No Cigar Use: No Alcohol: None Drugs: Denies Home Situation {Lives}: With Family - CARDIAC Hx Atrial Fibrillation: Yes (new onset) Hx Congestive Heart Failure: Yes Hx Hypercholesterolemia: Yes Hx Hypertension: Yes - PULMONARY Hx Chronic Obstructive Pulmonary Disease (COPD): Yes Hx Pneumonia: Yes Other/Comment: pleural effusion-s/p thoracentisis 02/13/2018 - NEUROLOGICAL Hx Neurological Disorder: No Hx Syncope: Yes - HEENT Hx HEENT Problems: Yes Hx Glaucoma: Yes - RENAL Hx Chronic Kidney Disease: Yes - ENDOCRINE/METABOLIC Hx Diabetes Mellitus Type 2: Yes - HEMATOLOGICAL/ONCOLOGICAL Hx AIDS: No Hx Anemia: Yes Hx Human Immunodeficiency Virus (HIV): No Other/Comment: hx multiple myoloma with chemo tx - INTEGUMENTARY Hx Dermatological Problems: No - MUSCULOSKELETAL/RHEUMATOLOGICAL Hx Falls: Yes - GASTROINTESTINAL Hx Gastrointestinal Disorders: No - GENITOURINARY/GYNECOLOGICAL Hx Genitourinary Disorders: No - PSYCHIATRIC Hx Psychophysiologic Disorder: No Hx Substance Use: No - SURGICAL HISTORY Hx Appendectomy: Yes Hx Coronary Artery Bypass Graft: Yes - ANESTHESIA Hx Anesthesia: Yes Hx Anesthesia Reactions: No Hx Malignant Hyperthermia: No Meds Allergies/Adverse Reactions: Allergies Allergy/AdvReac Type Severity Reaction Status Date / Time No Known Allergies Allergy Verified 02/14/18 14:10 - Medications Medications: Current Medications Acetaminophen (Tylenol 325mg Tab) 325 mg PO Q6 [facility] Last Admin: 02/21/18 04:26 Dose: 325 mg Al Hydrox/Mg Hydrox/Simethicone (Maalox Plus 30 Ml) 30 ml PO Q4 PRN PRN Reason: Indigestion / Heartburn Last Admin: 02/15/18 22:03 Dose: 30 ml Allopurinol (Zyloprim) 100 mg PO DAILY [facility] Last Admin: 02/21/18 08:26 Dose: 100 mg Atorvastatin Calcium (Lipitor) 10 mg PO DAILY [facility] Last Admin: 02/21/18 08:25 Dose: 10 mg Benzocaine/Menthol (Cepacol Sore Throat) 1 figueroa PO Q3H PRN PRN Reason: Sore Throat Last Admin: 02/15/18 22:34 Dose: 1 figueroa Brimonidine Tartrate (Alphagan 0.2% Opht) 1 drop OU HS [facility] Last Admin: 02/20/18 21:45 Dose: 1 drop Cephalexin Monohydrate (Keflex) 500 mg PO BID [facility] PRN Reason: Protocol Last Admin: 02/21/18 08:24 Dose: 500 mg Docusate Sodium (Colace) 100 mg PO BID PRN PRN Reason: Constipation Ferrous Sulfate (Feosol) 325 mg PO TID [facility] Last Admin: 02/21/18 08:22 Dose: 325 mg Furosemide (Lasix) 20 mg PO DAILY [facility] Last Admin: 02/21/18 08:23 Dose: 20 mg Guaifenesin (Robitussin) 100 mg PO QID PRN PRN Reason: cough Insulin Human Regular (Humulin R) 0 units SC ACHS [facility] PRN Reason: Protocol Last Admin: 02/21/18 06:30 Dose: Not Given Lisinopril (Zestril) 10 mg PO DAILY [facility] Last Admin: 02/21/18 08:25 Dose: 10 mg Nitroglycerin (Nitro-Bid 2% Oint) 1 ea TOP Q6 [facility] Last Admin: 02/21/18 09:12 Dose: 1 ea Pantoprazole Sodium (Protonix Ec Tab) 40 mg PO DAILY [facility] Last Admin: 02/21/18 08:24 Dose: 40 mg Sitagliptin Phosphate (Januvia) 25 mg PO DAILY [facility] Last Admin: 02/21/18 08:24 Dose: 25 mg Results - Vital Signs Recent Vital Signs: Last Vital Signs Temp 97.7 F 02/21/18 07:59 Pulse 68 02/21/18 09:12 Resp 20 02/21/18 07:59 BP 136/58 L 02/21/18 09:12 Pulse Ox 98 02/21/18 07:59 - Labs Result Diagrams: 02/15/18 08:10 02/15/18 08:10 Labs: Laboratory Results - last 24 hr 02/20/18 02/20/18 02/20/18 11:31 16:00 20:49 POC Glucose (mg/dL) 91 104 122 H 02/21/18 05:27 POC Glucose (mg/dL) 97
[2018-02-21 12:08] LABS: BASO # 0.1 K/uL (0.0-0.2); BASO % 1.2 % (0.0-2.0); EOS % 0.2 % (0.0-4.0); HEMOGLOBIN 11.1 g/dL (12.0-16.0); LYMPH # 1.9 K/uL (1.0-4.3); LYMPH % 27.2 % (20.0-40.0); MEAN CELL VOLUME 97.9 fl (81.0-99.0); MEAN CORPUSCULAR HEMOGLOBIN 31.6 pg (27.0-31.0); MEAN CORPUSCULAR HGB CONC 32.3 g/dL (33.0-37.0); MEAN PLATELET VOLUME 9.2 fl (7.2-11.7); MONO # 0.3 K/uL (0.0-0.8); MONO % 4.9 % (0.0-10.0); NEUT # 4.7 K/uL (1.8-7.0); NEUT % 66.5 % (50.0-75.0); NRBC % 0.1 % (0.0-0.0); RBC 3.52 Mil/uL (3.80-5.20); RED CELL DISTRIBUTION WIDTH 19.7 % (11.5-14.5)
[2018-02-21 12:10] LABS: ALB/GLOB RATIO 0.7 (1.0-2.1); ALBUMIN 3.3 g/dL (3.5-5.0); ALT/SGPT 18 U/L (9-52); AST/SGOT 23 U/L (14-36); BLOOD UREA NITROGEN 16 mg/dl (7-17); CALCIUM 8.7 mg/dL (8.4-10.2); GFR AFRICAN-AMERICAN > 60; GFR NON-AFRICAN AMERICAN > 60
[2018-02-21 12:13] LABS: PROTHROMBIN TIME 11.5 Seconds (9.8-13.1)
--- NOTE | 2018-02-21 17:12 | CARD ---
APPROVED REPORT EKG Measurement Heart [id number] <Conclusion> Sinus rhythm with 1st degree AV block Left axis deviation Possible septal infarct, age undetermined ST & T wave abnormality, consider lateral ischemia Abnormal ECG
--- NOTE | 2018-02-21 17:22 | CARD ---
APPROVED REPORT EKG Measurement Heart [id number] <Conclusion> Sinus rhythm Left axis deviation Possible septal infarct, age undetermined T wave abnormality, consider lateral ischemia Abnormal ECG
[2018-02-21] MEDS: Brimonidine 0.2% 50 DROP/5 ML BOTTLE OU SCH (21:52)
[2018-02-22] MEDS: Nitroglycerin 2% Ointment Foilpak UD TOP SCH ×4 (04:38→21:23)
[2018-02-22] MEDS: Insulin Regular 100 units/ml SC SCH ×4 (06:42→21:22)
[2018-02-22 07:37] VITALS: RESP 20
[2018-02-22] MEDS: Pantoprazole 40 mg EC Tab PO SCH (08:26)
--- NOTE | 2018-02-22 09:47 | CP.PCM.PN ---
Subjective - Date & Time of Evaluation Date of Evaluation: 02/22/18 Time of Evaluation: 09:45 - Subjective Subjective: Patient seen and examined bedside. Lying in bed in NAD. Denies any CP, SOB, palpitations, dizziness at present . Hemodynamically stable, afebrile No acute issues overnight For pacemaker placement Objective - Vital Signs/Intake and Output Vital Signs (last 24 hours): Temp Pulse Resp BP Pulse Ox 98.1 F 83 20 125/69 99 02/22/18 07:36 02/22/18 08:26 02/22/18 07:36 02/22/18 08:27 02/22/18 07:36 - Medications Medications: Current Medications Acetaminophen (Tylenol 325mg Tab) 325 mg PO Q6 [facility] Last Admin: 02/22/18 04:45 Dose: Not Given Al Hydrox/Mg Hydrox/Simethicone (Maalox Plus 30 Ml) 30 ml PO Q4 PRN PRN Reason: Indigestion / Heartburn Last Admin: 02/15/18 22:03 Dose: 30 ml Allopurinol (Zyloprim) 100 mg PO DAILY [facility] Last Admin: 02/22/18 08:27 Dose: 100 mg Atorvastatin Calcium (Lipitor) 10 mg PO DAILY [facility] Last Admin: 02/22/18 08:27 Dose: 10 mg Benzocaine/Menthol (Cepacol Sore Throat) 1 figueroa PO Q3H PRN PRN Reason: Sore Throat Last Admin: 02/15/18 22:34 Dose: 1 figueroa Brimonidine Tartrate (Alphagan 0.2% Opht) 1 drop OU HS [facility] Last Admin: 02/21/18 21:52 Dose: 1 drop Cephalexin Monohydrate (Keflex) 500 mg PO BID [facility] PRN Reason: Protocol Last Admin: 02/22/18 08:25 Dose: 500 mg Docusate Sodium (Colace) 100 mg PO BID PRN PRN Reason: Constipation Ferrous Sulfate (Feosol) 325 mg PO TID [facility] Last Admin: 02/22/18 08:26 Dose: 325 mg Furosemide (Lasix) 20 mg PO DAILY [facility] Last Admin: 02/22/18 08:27 Dose: 20 mg Guaifenesin (Robitussin) 100 mg PO QID PRN PRN Reason: cough Insulin Human Regular (Humulin R) [address] [facility] PRN Reason: Protocol Last Admin: 02/22/18 06:42 Dose: Not Given Lisinopril (Zestril) 10 mg PO DAILY [facility] Last Admin: 02/22/18 08:26 Dose: 10 mg Nitroglycerin (Nitro-Bid 2% Oint) 1 ea TOP Q6 [facility] Last Admin: 02/22/18 04:38 Dose: 1 ea Pantoprazole Sodium (Protonix Ec Tab) 40 mg PO DAILY [facility] Last Admin: 02/22/18 08:26 Dose: 40 mg Sitagliptin Phosphate (Januvia) 25 mg PO DAILY [facility] Last Admin: 02/22/18 08:26 Dose: 25 mg - Labs Labs: 02/21/18 11:30 02/21/18 11:30 PT 11.5 Seconds (9.8-13.1) 02/21/18 11:30 INR 1.0 (0.9-1.2) 02/21/18 11:30 - Constitutional Appears: Non-toxic, No Acute Distress, Cachectic, Chronically Ill - Head Exam Additional comments: frontal hematoma saad occular echymosis - Eye Exam Eye Exam: EOMI, PERRL Pupil Exam: NORMAL ACCOMODATION - ENT Exam ENT Exam: Mucous Membranes Moist, Normal Exam - Neck Exam Neck Exam: Full ROM, Normal Inspection - Respiratory Exam Respiratory Exam: Clear to Ausculation Bilateral, NORMAL BREATHING PATTERN. absent: Rales, Rhonchi, Wheezes - Cardiovascular Exam Cardiovascular Exam: REGULAR RHYTHM, RRR, +S1, +S2. absent: JVD - GI/Abdominal Exam GI & Abdominal Exam: Soft, Normal Bowel Sounds. absent: Distended, Guarding, Tenderness, Rebound - Rectal Exam Rectal Exam: Deferred - Extremities Exam Extremities Exam: Full ROM, Normal Capillary Refill, Normal Inspection. absent : Calf Tenderness, Pedal Edema - Neurological Exam Neurological Exam: Alert, Awake, CN II-XII Intact - Psychiatric Exam Psychiatric exam: Flat Affect - Skin Skin Exam: Dry, Warm Assessment and Plan - Assessment and Plan (Free Text) Assessment: 72 yo female with history of CAD, CHF, MM, DM2 and new onset AFib admitted to TCU on 02/07/2018 as a transfer from [facility] for continuation of IV antibiotics because of Strept Pneumoniae Bacteremia and Pneumonia. 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 After about 7 hrs, patient fell in the bathroom while urinating. Patient claimed she didn't know what happened and sustained a huge frontal contusion hematoma and nasal bone fracture. As per the same thing had happened at home as well in more than 1 occasions [address] scan did not show intracerebral bleed but nasal bone was fractured and patient had frontal hematoma. Patient was transferred to telemetry the next day after complaining of chest pain and was noted to have elevated Troponin. No acute ischemic changes were seen in EKG. She was placed on telemetry for monitoring. Subsequent Troponins were trending down until it normalized. Cardiology consult suggested chest pain probably secondary to trauma and elevated Troponins were likely secondary to demand ischemia from AFib with RVR. CT chest showed moderate left pleural effusion and IR was consulted for thoracenthesis since patient had some dyspnea at rest. About 750 ml of serosanguinous fluid was removed and was sent for testing which showed it was transudate. Being hemodynamically stable she was discharged back to TCU for continuation of IV antibiotics and therapy. While in TCU patient still complained of feeling dizzy and case was discussed with her software development manager Dr. Pedro who confirms the diagnosis of SSS during a prior admission at [facility] at which time patient deferred placement of pacemaker .Dr Pedro recommended evaluation of patient by Dr. Isaac at [facility] and patient is planned to have pacemaker placement Will hold off therapy for now 1. Sick Sinus Syndrome with dizziness hold therapy for now cardiology eval with Dr. Isaac appreciated . For pacemaker placement in AM ASA on hold 2. Paroxysmal Afib back on NSR on Cardizem PO with parameters 30 mg pO TID no therapeutic anticoagulation due to recent fall with head trauma and hematoma 3. Fall with frontal hematoma CT head showed nasal bone fracture and frontal hematoma Hematoma will most likely be absorbed over time and nasal bone fracture will heal with no intervention 4. Strep Pneumonia Bacteremia Penicillin resistant Strep Pneumoniae sensitive to Ceftriaxone Received IV Ceftriaxone for 2 weeks Switched to Keflex PO for [address] Pond on ID consult 5. Chronic congestive heart failure ( systolic dysfunction , compensated ) continue Lasix, NTG , low salt diet patient has history CABG and follows up with Dr. Pedro 6. Multiple myeloma Dr Mosley following up patient 7. Bilateral pleural effusion Most likely related to CHF CT chest showed moderate left pleural effusion had thoracenthesis on 02/13 with removal of 750 ml fluid that showed transudate continue management for CHF 8. Anemia likely anemia of chronic disease and MM monitor for now on Ferrous sulfate Hgb 9.6 9. Chest pain-- resolved Troponins back to normal chest pain non-cardiac and secondary to trauma elevated Troponins secondary to demand ischemia from RVR with AFib cardiology consult appreciated 10. DVT prophylaxis venodyne boots while in bed Lovenox renal dose
--- NOTE | 2018-02-22 11:28 | CP.PCM.PN ---
Subjective - Date & Time of Evaluation Date of Evaluation: 02/22/18 Time of Evaluation: 11:00 - Subjective Subjective: Resting comfortably in bed Vital signs stable Labs done yesterday satisfactory Spoke with her need for pacemaker explained Risks and benefits explained Scheduled for PM insertion tomorrow. Objective - Vital Signs/Intake and Output Vital Signs (last 24 hours): Temp Pulse Resp BP Pulse Ox 98.1 F 87 20 125/72 99 02/22/18 07:36 02/22/18 10:36 02/22/18 07:36 02/22/18 10:36 02/22/18 07:36 - Medications Medications: Current Medications Acetaminophen (Tylenol 325mg Tab) 325 mg PO Q6 [facility] Last Admin: 02/22/18 10:41 Dose: 325 mg Al Hydrox/Mg Hydrox/Simethicone (Maalox Plus 30 Ml) 30 ml PO Q4 PRN PRN Reason: Indigestion / Heartburn Last Admin: 02/15/18 22:03 Dose: 30 ml Allopurinol (Zyloprim) 100 mg PO DAILY [facility] Last Admin: 02/22/18 08:27 Dose: 100 mg Atorvastatin Calcium (Lipitor) 10 mg PO DAILY [facility] Last Admin: 02/22/18 08:27 Dose: 10 mg Benzocaine/Menthol (Cepacol Sore Throat) 1 figueroa PO Q3H PRN PRN Reason: Sore Throat Last Admin: 02/15/18 22:34 Dose: 1 figueroa Brimonidine Tartrate (Alphagan 0.2% Opht) 1 drop OU HS [facility] Last Admin: 02/21/18 21:52 Dose: 1 drop Cephalexin Monohydrate (Keflex) 500 mg PO BID [facility] PRN Reason: Protocol Last Admin: 02/22/18 08:25 Dose: 500 mg Docusate Sodium (Colace) 100 mg PO BID PRN PRN Reason: Constipation Ferrous Sulfate (Feosol) 325 mg PO TID [facility] Last Admin: 02/22/18 08:26 Dose: 325 mg Furosemide (Lasix) 20 mg PO DAILY [facility] Last Admin: 02/22/18 08:27 Dose: 20 mg Guaifenesin (Robitussin) 100 mg PO QID PRN PRN Reason: cough Insulin Human Regular (Humulin R) 0 units SC [facility] PRN Reason: Protocol Last Admin: 02/22/18 06:42 Dose: Not Given Lisinopril (Zestril) 10 mg PO DAILY [facility] Last Admin: 02/22/18 08:26 Dose: 10 mg Nitroglycerin (Nitro-Bid 2% Oint) 1 ea TOP Q6 [facility] Last Admin: 02/22/18 10:36 Dose: 1 ea Pantoprazole Sodium (Protonix Ec Tab) 40 mg PO DAILY [facility] Last Admin: 02/22/18 08:26 Dose: 40 mg Sitagliptin Phosphate (Januvia) 25 mg PO DAILY [facility] Last Admin: 02/22/18 08:26 Dose: 25 mg - Labs Labs: 02/21/18 11:30 02/21/18 11:30 PT 11.5 Seconds (9.8-13.1) 02/21/18 11:30 INR 1.0 (0.9-1.2) 02/21/18 11:30
[2018-02-22 19:57] VITALS: O2SAT 97
[2018-02-22] MEDS: Brimonidine 0.2% 50 DROP/5 ML BOTTLE OU SCH (21:06)
--- NOTE | 2018-02-23 02:32 | CP.PCM.DIS ---
Provider - Provider Date of Admission: 02/14/18 14:13 Attending physician: Leonor Hu MD Primary care physician: Nikko Pedro MD Consults: Camilo Mosley MD Heme/ onc Myron Isaac MD cardiology Dr Salty JONAS Time Spent in preparation of Discharge (in minutes): 25 Diagnosis - Discharge Diagnosis (1) Systolic CHF, chronic Status: Acute (2) Traumatic hematoma of head Status: Acute (3) Bilateral pleural effusion Status: Acute (4) Bacteremia due to Streptococcus pneumoniae Status: Acute (5) Anemia Status: Acute (6) Chest pain Status: Acute (7) Multiple myeloma Status: Acute (8) Sick sinus syndrome Status: Acute Hospital Course - Lab Results Lab Results: Most Recent Lab Values WBC 7.0 K/uL (4.8-10.8) 02/21/18 11:30 RBC 3.52 Mil/uL (3.80-5.20) L 02/21/18 11:30 Hgb 11.1 g/dL (12.0-16.0) L 02/21/18 11:30 Hct 34.4 % (34.0-47.0) 02/21/18 11:30 MCV 97.9 fl (81.0-99.0) 02/21/18 11:30 MCH 31.6 pg (27.0-31.0) H 02/21/18 11:30 MCHC 32.3 g/dL (33.0-37.0) L 02/21/18 11:30 RDW 19.7 % (11.5-14.5) H 02/21/18 11:30 Plt Count 301 K/uL (130-400) 02/21/18 11:30 MPV 9.2 fl (7.2-11.7) 02/21/18 11:30 Neut % (Auto) 66.5 % (50.0-75.0) 02/21/18 11:30 Lymph % (Auto) 27.2 % (20.0-40.0) 02/21/18 11:30 Creek % (Auto) 4.9 % (0.0-10.0) 02/21/18 11:30 Eos % (Auto) 0.2 % (0.0-4.0) 02/21/18 11:30 Baso % (Auto) 1.2 % (0.0-2.0) 02/21/18 11:30 Neut # (Auto) 4.7 K/uL (1.8-7.0) 02/21/18 11:30 Lymph # (Auto) 1.9 K/uL (1.0-4.3) 02/21/18 11:30 Creek # (Auto) 0.3 K/uL (0.0-0.8) 02/21/18 11:30 Eos # (Auto) 0.0 K/uL (0.0-0.7) 02/21/18 11:30 Baso # (Auto) 0.1 K/uL (0.0-0.2) 02/21/18 11:30 PT 11.5 Seconds (9.8-13.1) 02/21/18 11:30 INR 1.0 (0.9-1.2) 02/21/18 11:30 Sodium 141 mmol/l (132-148) 02/21/18 11:30 Potassium 4.0 MMOL/L (3.6-5.0) 02/21/18 11:30 Chloride 104 mmol/L (98-107) 02/21/18 11:30 Carbon Dioxide 27 mmol/L (22-30) 02/21/18 11:30 Anion Gap 14 (10-20) 02/21/18 11:30 BUN 16 mg/dl (7-17) 02/21/18 11:30 Creatinine 0.9 mg/dl (0.7-1.2) 02/21/18 11:30 Est GFR ( Amer) > 60 02/21/18 11:30 Est GFR (Non-Af Amer) > 60 02/21/18 11:30 POC Glucose (mg/dL) 173 mg/dL (65-110) H 02/22/18 20:59 Random Glucose 100 mg/dL (65-105) 02/21/18 11:30 Calcium 8.7 mg/dL (8.4-10.2) 02/21/18 11:30 Total Bilirubin 0.5 mg/dl (0.2-1.3) 02/21/18 11:30 AST 23 U/L (14-36) 02/21/18 11:30 ALT 18 U/L (9-52) 02/21/18 11:30 Alkaline Phosphatase 131 U/L (38-126) H D 02/21/18 11:30 Total Protein 7.6 G/DL (6.3-8.2) 02/21/18 11:30 Albumin 3.3 g/dL (3.5-5.0) L D 02/21/18 11:30 Globulin 4.4 gm/dL (2.2-3.9) H 02/21/18 11:30 Albumin/Globulin Ratio 0.7 (1.0-2.1) L 02/21/18 11:30 - Hospital Course Hospital Course: 72 yo female with history of CAD, CHF, MM, DM2 and new onset AFib admitted to TCU on 02/07/2018 as a transfer from [facility] for continuation of IV antibiotics because of Strept Pneumoniae Bacteremia and Pneumonia. Patient had [employer] in TCU for rapid AFib with RVR that responded to 2 doses of 10mg IV Cardizem. After about 7 hrs, patient fell in the bathroom while urinating. Patient claimed she didn't know what happened and sustained a huge frontal contusion hematoma. As per the same thing had happened at home as well in more than [address] scan did not show intracerebral bleed but nasal bone was fractured and patient had frontal hematoma. Patient was transferred to telemetry the next day after complaining of chest pain and was noted to have elevated Troponin. No acute ischemic changes were seen in EKG. She was placed on telemetry for monitoring. Subsequent Troponins were trending down until it normalized. Cardiology consult suggested chest pain probably secondary to trauma and elevated Troponins were likely secondary to demand ischemia from AFib with RVR. CT chest showed moderate left pleural effusion and IR was consulted for thoracenthesis since patient had some dyspnea at rest. About 750 ml of serosanguinous fluid was removed and was sent for testing which showed it was transudate. Being hemodynamically stable she was discharged back to TCU for continuation of IV antibiotics and therapy. 1. Chest pain chest pain non-cardiac and secondary to trauma 2. Paroxysmal Afib with Sick Sinus Syndrome back on NSR at present resumed Cardizem PO with parameters no therapeutic anticoagulation due to recent fall with head trauma and hematoma For Permanent pacemaker Insertion 3. Fall with frontal hematoma CT head showed nasal bone fracture and frontal hematoma probably secondary vasovagal changes or sudden drop in BP Hematoma will most likely be absorbed over time and nasal bone fracture will heal with no intervention 4. Strep Pneumonia Bacteremia Penicillin resistant Strep Pneumoniae sensitive to Ceftriaxone treated with IV Ceftriaxone until 02/19/18 cont PO Keflex until02/26/18 5. Chronic congestive heart failure ( systolic dysfunction , compensated ) continue Lasix, NTG on CW, low salt diet 6. Multiple myeloma For outpatient treatment 7. Bilateral pleural effusion Most likely related to CHF CT chest showed moderate left pleural effusion had thoracenthesis on 02/13 with removal of 750 ml fluid that showed transudate continue management for CHF 8. Anemia Stable - Date & Time of H&P Date of H&P: 02/15/18 Time of H&P: 10:53 Discharge Exam - Head Exam Head Exam: ATRAUMATIC Discharge Plan - Follow Up Plan Condition: FAIR Disposition: HOME/ ROUTINE Instructions: Pacemaker Insertion Referrals: Nikko Pedro MD [Primary Care Provider] -
[2018-02-23] MEDS: Nitroglycerin 2% Ointment Foilpak UD TOP SCH (04:50)
[2018-02-23 04:51] VITALS: BP 128/74; PULSE 88
[2018-02-23 05:39] VITALS: TEMP 97
== END 2018-02-23 06:00 | disposition short-term general hospital (02) | DRG 194 ==
LOC: H.TCU 14:13
PROVIDERS: ADMIT Hospitalist; ATTEND Hospitalist
PROC: 3E03329 Introduction of Other Anti-infective into Peripheral Vein, Percutaneous Approach (ICD-10-PCS; principal; 2018-02-14)
PROC: F07M6FZ Therapeutic Exercise Treatment of Musculoskeletal System - Whole Body using Assistive, Adaptive, Supportive or Protective Equipment (ICD-10-PCS; 2018-02-14)
DX: J13 Pneumonia due to Streptococcus pneumoniae (principal); C90.00 Multiple myeloma not having achieved remission; I13.0 Hypertensive heart and chronic kidney disease with heart failure and stage 1 through stage 4 chronic kidney disease, or unspecified chronic kidney disease; I24.8 Other forms of acute ischemic heart disease; I50.22 Chronic systolic (congestive) heart failure; J44.0 Chronic obstructive pulmonary disease with (acute) lower respiratory infection; B95.3 Streptococcus pneumoniae as the cause of diseases classified elsewhere; D63.8 Anemia in other chronic diseases classified elsewhere; E11.22 Type 2 diabetes mellitus with diabetic chronic kidney disease; E78.00 Pure hypercholesterolemia, unspecified; H40.9 Unspecified glaucoma; I25.10 Atherosclerotic heart disease of native coronary artery without angina pectoris; I48.0 Paroxysmal atrial fibrillation; I49.5 Sick sinus syndrome; N18.9 Chronic kidney disease, unspecified; S00.83XD Contusion of other part of head, subsequent encounter; W19.XXXD Unspecified fall, subsequent encounter; S02.2XXD Fracture of nasal bones, subsequent encounter for fracture with routine healing; Y92.002 Bathroom of unspecified non-institutional (private) residence as the place of occurrence of the external cause; Z16.11 Resistance to penicillins; Z87.01 Personal history of pneumonia (recurrent); Z90.49 Acquired absence of other specified parts of digestive tract; Z95.1 Presence of aortocoronary bypass graft; L89.152 Pressure ulcer of sacral region, stage 2

== ENCOUNTER 2018-02-23 06:22 | Observation (INO) | payer MEDICARE, OTHER ==
[2018-02-23 07:03] VITALS: BMI 15.8
[2018-02-23] MEDS ORDERED: Lidocaine Hydrochloride 10 ML INJ ONE (07:27)
[2018-02-23] MEDS ORDERED: Liquid Adhesive TOP ONE (07:28)
[2018-02-23] MEDS ORDERED: Propofol 10 mg/ml Inj (20 ML) ONE (08:22)
[2018-02-23] MEDS ORDERED: Midazolam 2 MG/2 ML VIAL ONE (08:23)
[2018-02-23] MEDS ORDERED: Lactated Ringer's 1,000 ML IV ONE (08:35)
[2018-02-23] MEDS ORDERED: Lidocaine 1% PF (5ml) Amp INJ ONE (08:57)
--- NOTE | 2018-02-23 10:49 | PCM.SURG1 ---
Surgeon's Initial Post Op Note - Surgeon's Notes Surgeon: Maya Lapel Padder: Tito Isaac Type of Anesthesia: IV Sedation, Local Anesthesia Administered By: Eloy Pre-Operative Diagnosis: Sick sinus syndrome Operative Findings: satosfactory placement of atrial and ventricular leads Post-Operative Diagnosis: same Operation Performed: Insersion of Dual chamber Pacemaker Specimen/Specimens Removed: none Estimated Blood Loss: EBL {In ML}: 10 Blood Products Given: N/A Drains Used: No Drains Post-Op Condition: Good Date of Surgery/Procedure: 02/23/18 Time of Surgery/Procedure: 08:20
[2018-02-23] MEDS ORDERED: HYDROmorphone 0.5 mg/0.5 ml ISec IVP PRN (10:58)
[2018-02-23] MEDS ORDERED: Lactated Ringer's 1,000 ML IV SCH (11:00)
--- NOTE | 2018-02-23 11:09 | CP.PCM.PN ---
Subjective - Date & Time of Evaluation Date of Evaluation: 02/23/18 Time of Evaluation: 10:15 - Subjective Subjective: Under xylocain anesthesia a Lt subclavian vein was punctured and an introducer was advanced into it. Under fluoroscopic monitoring, an rv pacing lead was advanced into RV and was screwed in securely. Pacing and sensing measurements were satisfactory. Over the same stylet another introducer was advanced into subclav vein and an RA pacing lead was advanced into RA followed by a J-stylet. The lead was secured into place after pacing and sensing measurements were found to be satisfactory. The leads were secured into place and connected to a Medtronic pacer (Model "[id number]") WHICH WAS PUT INTO THE POCKET WHICH WAS CONSTRUCTED BEFORE. Pt left the OR stable and was sent to [facility]. Will be monitored overnight in telemetry floor. Objective - Vital Signs/Intake and Output Vital Signs (last 24 hours): Temp Pulse Resp BP Pulse Ox 97 F L 88 20 124/78 97 02/23/18 06:58 02/23/18 06:58 02/23/18 06:58 02/23/18 06:58 02/23/18 06:58
[2018-02-23] MEDS ORDERED: guaiFENesin 100 mg/5 ml Syrup UD PO PRN (11:19)
[2018-02-23] MEDS ORDERED: Benzocaine/Menthol (Cepacol) Lozenge PO PRN (11:19)
[2018-02-23] MEDS ORDERED: Albuterol-Ipratrop 3 mg / 0.5 (3 ml) UD INH PRN (11:19)
--- NOTE | 2018-02-23 11:27 | RAD ---
HISTORY: s/p pacemaker insersion COMPARISON: Chest radiograph dated 02/10/2018. FINDINGS: LUNGS: Pulmonary vascular congestion. Bibasilar atelectasis, left worse than right. PLEURA: Left pleural effusion, unable to be quantified. Trace right pleural effusion. No pneumothorax apparent. CARDIOVASCULAR: New left subclavian access pacemaker with leads terminating in the right atrium and right ventricle. Prior sternotomy with sternal wires and surgical clips redemonstrated. Atherosclerotic aortic calcifications. Cardiomediastinal silhouette stably enlarged. OSSEOUS STRUCTURES: Unchanged. VISUALIZED UPPER ABDOMEN: Normal. OTHER FINDINGS: None. IMPRESSION: New left subclavian access to lead pacemaker in satisfactory position. No appreciable pneumothorax. Pulmonary vascular congestion and bibasilar atelectasis. Trace right pleural effusion. Left pleural effusion, probably small to moderate in size.
[2018-02-23] MEDS: Insulin Regular 100 units/ml SC SCH ×4 (13:29→22:07)
[2018-02-23] MEDS: Nitroglycerin 2% Ointment Foilpak UD TOP SCH ×3 (13:37→22:39)
--- NOTE | 2018-02-23 14:37 | OP ---
PROCEDURE DATE: 02/23/2018 PREOPERATIVE DIAGNOSIS: Sick sinus syndrome. POSTOPERATIVE DIAGNOSIS: Sick sinus syndrome. PROCEDURE: Insertion of dual chamber pacemaker. SURGEON: Lino Trejo MD COST ESTIMATING CLERK: Dr. Isaac. SECOND COST ESTIMATING CLERK: Nestor Francis DO TYPE OF ANESTHESIA: Local with sedation. ANESTHESIA ADMINISTERED BY: Dr. Knight. IV FLUID INTAKE: Crystalloids. ESTIMATED BLOOD LOSS: 10 mL. INTRAOPERATIVE FINDINGS: Satisfactory position of the ventricular and atrial leads. SPECIMENS: None. BRIEF HISTORY: Ms. Pedro is a very pleasant 72-year-old female who has been having falls secondary to sick sinus syndrome and was brought into the operating room for placement of a pacemaker. All the risks and benefits of the procedure were explained to the patient and the patient having a full understanding of all the risks and benefits involved, informed consent was obtained and the patient was taken to the operating room for above-stated procedure. DESCRIPTION OF PROCEDURE: The patient was brought into the operating room and placed supine on the operating room table. Bilateral Flowtron boots were applied to the patient's lower extremities. After successful IV sedation, the patient's chest was prepped with ChloraPrep stick and draped in a standard surgical fashion. Prior to beginning of the procedure, the patient received prophylactic Ancef antibiotics. A time-out was called in the room and everyone in the room were in agreement. Using 1% lidocaine anesthetic, the area in the left upper chest was infiltrated with lidocaine anesthetic. Subsequent to that, using #15 blade scalpel knife, approximately 4-cm incision was made in transverse fashion and subsequent to that dissection was carried down with electrocautery until the pectoral fascia was encountered. Once, the pectoral fascia was encountered, the pocket for the pacemaker battery was made right on top of the pectoral fascia with blunt dissection with the finger. At this point in time, hemostasis was achieved with electrocautery and at this point in time, a fine needle was introduced into the left subclavian vein and subsequent to that the guidewire was inserted into the patient. At this point in time, fluoroscopy C-arm was asked to come into operative view and fluoroscopy spot was taken. The guidewire appeared to go into the superior vena cava. At this point in time, the introducer sheath was introduced over the guidewire and subsequent to that, Dr. Isaac took over the case and his part will be dictated separately. Once Dr. Isaac finished placing the ventricular and atrial leads, the pacemaker battery was connected to the leads and secured in place with little . At this point in time, the leads were secured to the pectoral fascia with 2-0 silk suture and at this point in time, the pacemaker battery was placed into the pocket and wires were tucked behind the pacemaker battery. At this point in time, the deep dermal layer was closed with 3-0 Vicryl suture in a running fashion and subsequent to that the skin was closed with 4-0 Monocryl suture in a running subcuticular fashion. At the end of the procedure, the patient's chest was washed and dried and Dermabond was applied to the side of the incision. The patient was successfully transferred to the stretcher and taken to the recovery room in a stable condition. At the end of the procedure, all instrument counts, needles, and sponges were correct. Lino Trejo MD
--- NOTE | 2018-02-23 14:51 | CP.PCM.HP ---
History of Present Illness - History of Present Illness History of Present Illness: CC: Atrial fibrillation 72 yo female with history of CAD, CHF, MM, DM2 and new onset AFib admitted to TCU on 02/07/2018 as a transfer from [facility] for continuation of IV antibiotics because of Strept Pneumoniae Bacteremia and Pneumonia. Patient had [employer] in TCU for rapid AFib with RVR that responded to 2 doses of 10mg IV Cardizem. After about 7 hrs, patient fell in the bathroom while urinating. Patient claimed she didn't know what happened and sustained a huge frontal contusion hematoma. As per the same thing had happened at home as well in more than [address] scan did not show intracerebral bleed but nasal bone was fractured and patient had frontal hematoma. Patient was transferred to telemetry the next day after complaining of chest pain and was noted to have elevated Troponin. No acute ischemic changes were seen in EKG. She was placed on telemetry for monitoring. Subsequent Troponins were trending down until it normalized. Cardiology consult suggested chest pain probably secondary to trauma and elevated Troponins were likely secondary to demand ischemia from AFib with RVR. CT chest showed moderate left pleural effusion and IR was consulted for thoracenthesis since patient had some dyspnea at rest. About 750 ml of serosanguinous fluid was removed and was sent for testing which showed it was transudate. Being hemodynamically stable she was discharged back to TCU for continuation of IV antibiotics and therapy on 02/15/2018. She had an uncomplicated stay there. This morning, the patient underwent dual chamber pacemaker implantation with Dr. Marlo Isaac who has been seeing her on consultation for sick sinus syndrome. The patient underwent the procedure without difficulty and is now being admitted to telemetry for observation post procedure. She is doing well currently. Denies any new symptoms at the present time. The plan is to discharge her home tomorrow morning if there are no acute events overnight. Present on Admission - Present on Admission Any Indicators Present on Admission: No Review of Systems - Review of Systems Review of Systems: A 12 point review of systems was conducted and found to be negative other than what was mentioned in the HPI. Past Patient History - Infectious Disease Hx of Infectious Diseases: None - Tetanus Immunizations Tetanus Immunization: Unknown - Past Medical History & Family History Past Medical History?: Yes - Past Social History Smoking Status: Never Smoked - CARDIAC Hx Cardiac Disorders: Yes (CAD, CABG) Hx Congestive Heart Failure: Yes Hx Hypercholesterolemia: Yes Hx Hypertension: Yes - PULMONARY Hx Respiratory Disorders: Yes Hx Chronic Obstructive Pulmonary Disease (COPD): Yes Hx Pneumonia: Yes Other/Comment: pleural effusion-s/p thoracentisis 02/13/2018 - NEUROLOGICAL Hx Neurological Disorder: No Hx Syncope: Yes - HEENT Hx HEENT Problems: Yes Hx Glaucoma: Yes - RENAL Hx Chronic Kidney Disease: Yes Other/Comment: Acute kidney Injury - ENDOCRINE/METABOLIC Hx Endocrine Disorders: Yes Hx Diabetes Mellitus Type 2: Yes - HEMATOLOGICAL/ONCOLOGICAL Hx Blood Disorders: Yes Hx AIDS: No Hx Anemia: Yes Hx Human Immunodeficiency Virus (HIV): No Other/Comment: hx multiple myoloma with chemo tx - INTEGUMENTARY Hx Dermatological Problems: No - MUSCULOSKELETAL/RHEUMATOLOGICAL Hx Musculoskeletal Disorders: Yes Hx Falls: Yes Hx Gout: Yes - GASTROINTESTINAL Hx Gastrointestinal Disorders: No - GENITOURINARY/GYNECOLOGICAL Hx Genitourinary Disorders: No - PSYCHIATRIC Hx Psychophysiologic Disorder: No Hx Substance Use: No - SURGICAL HISTORY Hx Surgeries: Yes Hx Appendectomy: Yes Hx Coronary Artery Bypass Graft: Yes - ANESTHESIA Hx Anesthesia: Yes Hx Anesthesia Reactions: No Hx Malignant Hyperthermia: No Meds Allergies/Adverse Reactions: Allergies Allergy/AdvReac Type Severity Reaction Status Date / Time No Known Allergies Allergy Verified 02/14/18 14:10 Physical Exam - Additional Findings Additional findings: Physical exam: Constitutional- cooperative, awake, alert Head- NC, + Frontal hematoma, Periocular ecchymosis, PERRL Eye- PERRL, EOMI ENT- normal exam, MMM. Neck- normal inspection, supple, no JVD Respiratory- CTAB, no wheezes rales rhonchi Cardiovascular- RRR, +S1, +S2 no MRG GI/Abdominal- normal bowel sounds, soft, no mass, no hsm Skin- warm, dry Extremities Exam- normal capillary refill, normal inspection Neurological Exam- alert, awake, oriented Psych- normal mood, normal affect Results - Vital Signs Recent Vital Signs: Last Vital Signs Temp 97 F L 02/23/18 11:00 Pulse 81 02/23/18 11:15 Resp 20 02/23/18 11:15 BP 156/87 H 02/23/18 11:15 Pulse Ox 100 02/23/18 11:15 - Labs Labs: Laboratory Results - last 24 hr 02/23/18 10:54 POC Glucose (mg/dL) 89 Assessment & Plan - Assessment and Plan (Free Text) Plan: 72 yo female with history of CAD, CHF, MM, DM2 and new onset AFib admitted to TCU on 02/07/2018 as a transfer from [facility] for continuation of IV antibiotics because of Strept Pneumoniae Bacteremia and Pneumonia. Patient had [employer] in TCU for rapid AFib with RVR that responded to 2 doses of 10mg IV Cardizem. After about 7 hrs, patient fell in the bathroom while urinating. Patient claimed she didn't know what happened and sustained a huge frontal contusion hematoma. As per the same thing had happened at home as well in more than 1 occasions [address] scan did not show intracerebral bleed but nasal bone was fractured and patient had frontal hematoma. Patient was transferred to telemetry the next day after complaining of chest pain and was noted to have elevated Troponin. No acute ischemic changes were seen in EKG. She was placed on telemetry for monitoring. Subsequent Troponins were trending down until it normalized. Cardiology consult suggested chest pain probably secondary to trauma and elevated Troponins were likely secondary to demand ischemia from AFib with RVR. CT chest showed moderate left pleural effusion and IR was consulted for thoracenthesis since patient had some dyspnea at rest. About 750 ml of serosanguinous fluid was removed and was sent for testing which showed it was transudate. Being hemodynamically stable she was discharged back to TCU for continuation of IV antibiotics and therapy. 1. Chest pain chest pain non-cardiac and secondary to trauma stable 2. Paroxysmal Afib with Sick Sinus Syndrome back on NSR at present resumed Cardizem PO with parameters no therapeutic anticoagulation due to recent fall with head trauma and hematoma Status post Permanent pacemaker Insertion POD #0 3. Fall with frontal hematoma CT head showed nasal bone fracture and frontal hematoma probably secondary vasovagal changes or sudden drop in BP Hematoma will most likely be absorbed over time and nasal bone fracture will heal with no intervention 4. Strep Pneumonia Bacteremia Penicillin resistant Strep Pneumoniae sensitive to Ceftriaxone treated with IV Ceftriaxone until 02/19/18 cont PO Keflex until02/26/18 5. Chronic congestive heart failure ( systolic dysfunction , compensated ) continue Lasix, NTG on CW, low salt diet 6. Multiple myeloma For outpatient treatment 7. Bilateral pleural effusion Most likely related to CHF CT chest showed moderate left pleural effusion had thoracenthesis on 02/13 with removal of 750 ml fluid that showed transudate continue management for CHF 8. Anemia - Stable 9. DVT prophylaxis - SCDs - anticoagulation contraindicated due to hematoma Disp: For likely discharge to home tomorrow with follow up appointment with Dr. Marlo Isaac
[2018-02-23 16:00] VITALS: RESP 18
[2018-02-23] MEDS ORDERED: Brimonidine 0.2% 50 DROP/5 ML BOTTLE OU SCH (22:00)
[2018-02-24] MEDS: Nitroglycerin 2% Ointment Foilpak UD TOP SCH ×3 (06:13→12:44)
[2018-02-24] MEDS: Insulin Regular 100 units/ml SC SCH ×2 (06:44→11:15)
[2018-02-24 07:27] LABS: HEMOGLOBIN 10.3 g/dL (12.0-16.0); MEAN CELL VOLUME 97.8 fl (81.0-99.0); MEAN CORPUSCULAR HEMOGLOBIN 32.4 pg (27.0-31.0); MEAN CORPUSCULAR HGB CONC 33.1 g/dL (33.0-37.0); RBC 3.18 Mil/uL (3.80-5.20); RED CELL DISTRIBUTION WIDTH 18.9 % (11.5-14.5); WHITE BLOOD COUNT 5.6 K/uL (4.8-10.8)
[2018-02-24 07:42] LABS: ALB/GLOB RATIO 0.7 (1.0-2.1); ALBUMIN 2.6 g/dL (3.5-5.0); ALT/SGPT 11 U/L (9-52); AST/SGOT 23 U/L (14-36); BLOOD UREA NITROGEN 15 mg/dl (7-17); CALCIUM 8.3 mg/dL (8.4-10.2); GFR AFRICAN-AMERICAN > 60; GFR NON-AFRICAN AMERICAN > 60
[2018-02-24 08:18] VITALS: O2SAT 97
[2018-02-24] MEDS: Pantoprazole 40 mg EC Tab PO SCH ×2 (08:42→09:03)
--- NOTE | 2018-02-24 08:58 | CP.PCM.DIS ---
Provider - Provider Date of Admission: 02/23/18 11:12 Attending physician: Vinnie Servin DO Primary care physician: Nikko Pedro MD Consults: Cardiology consult Time Spent in preparation of Discharge (in minutes): 15 Hospital Course - Lab Results Lab Results: Most Recent Lab Values WBC 5.6 K/uL (4.8-10.8) 02/24/18 06:25 RBC 3.18 Mil/uL (3.80-5.20) L 02/24/18 06:25 Hgb 10.3 g/dL (12.0-16.0) L 02/24/18 06:25 Hct 31.1 % (34.0-47.0) L 02/24/18 06:25 MCV 97.8 fl (81.0-99.0) 02/24/18 06:25 MCH 32.4 pg (27.0-31.0) H 02/24/18 06:25 MCHC 33.1 g/dL (33.0-37.0) 02/24/18 06:25 RDW 18.9 % (11.5-14.5) H 02/24/18 06:25 Plt Count 190 K/uL (130-400) D 02/24/18 06:25 Sodium 139 mmol/l (132-148) 02/24/18 06:25 Potassium 3.7 MMOL/L (3.6-5.0) 02/24/18 06:25 Chloride 108 mmol/L (98-107) H 02/24/18 06:25 Carbon Dioxide 21 mmol/L (22-30) L 02/24/18 06:25 Anion Gap 14 (10-20) 02/24/18 06:25 BUN 15 mg/dl (7-17) 02/24/18 06:25 Creatinine 0.8 mg/dl (0.7-1.2) 02/24/18 06:25 Est GFR ( Amer) > 60 02/24/18 06:25 Est GFR (Non-Af Amer) > 60 02/24/18 06:25 POC Glucose (mg/dL) 82 mg/dL (65-110) 02/24/18 05:31 Random Glucose 127 mg/dL (65-105) H 02/24/18 06:25 Calcium 8.3 mg/dL (8.4-10.2) L 02/24/18 06:25 Total Bilirubin 0.4 mg/dl (0.2-1.3) 02/24/18 06:25 AST 23 U/L (14-36) 02/24/18 06:25 ALT 11 U/L (9-52) 02/24/18 06:25 Alkaline Phosphatase 102 U/L (38-126) 02/24/18 06:25 Total Protein 6.4 G/DL (6.3-8.2) 02/24/18 06:25 Albumin 2.6 g/dL (3.5-5.0) L D 02/24/18 06:25 Globulin 3.8 gm/dL (2.2-3.9) 02/24/18 06:25 Albumin/Globulin Ratio 0.7 (1.0-2.1) L 02/24/18 06:25 - Hospital Course Hospital Course: 72 yo female with history of CAD, CHF, MM, DM2 and new onset AFib admitted to TCU on 02/07/2018 as a transfer from [facility] for continuation of IV antibiotics because of Strept Pneumoniae Bacteremia and Pneumonia. Patient had [employer] in TCU for rapid AFib with RVR that responded to 2 doses of 10mg IV Cardizem. After about 7 hrs, patient fell in the bathroom while urinating. Patient claimed she didn't know what happened and sustained a huge frontal contusion hematoma. As per the same thing had happened at home as well in more than [address] scan did not show intracerebral bleed but nasal bone was fractured and patient had frontal hematoma. Patient was transferred to telemetry the next day after complaining of chest pain and was noted to have elevated Troponin. No acute ischemic changes were seen in EKG. She was placed on telemetry for monitoring. Subsequent Troponins were trending down until it normalized. Cardiology consult suggested chest pain probably secondary to trauma and elevated Troponins were likely secondary to demand ischemia from AFib with RVR.Telemetry monitoring recorded NSR . CT chest showed moderate left pleural effusion and IR was consulted for thoracenthesis since patient had some dyspnea at rest. About 750 ml of serosanguinous fluid was removed and was sent for testing which showed it was transudate. Being hemodynamically stable she was discharged back to TCU for continuation of IV antibiotics and therapy. While in TCU patient continued to feel dizzy. After discussion with her cra Dr Nuris Pedro it was learned that she has SSS and pacemaker placement was recommended in the past but patient and refused at that time. In the light of new events it was recommended patient has pacemaker plavcement. Cardiology consult with DR. Isaac called and she underwent dual chamber pacemaker placement 02/23 with no complications. At present patient is feeling well, denies any discomfort , dizziness , chest pain , SOB and ready to go home Will d/c patient home with family. Advise to follow up with Dr. Isaac in 1 week 1. Sick sinue syndrome with episodes of paroxysmal AFIb, bradycardia , dizziness and syncopy s/p dual chamber pacemaker placement 02/[address] Isaac Follow up with Dr. Isaac as outpatient 2. Muskuloskeletal chest pain - ACS ruled out chest pain non-cardiac and secondary to trauma 3. Fall with frontal hematoma and non displaced nasal bone fracture CT head showed nasal bone fracture and frontal hematoma Hematoma will most likely be absorbed over time and nasal bone fracture will heal with no intervention 4. Strep Pneumonia Bacteremia Penicillin resistant Strep Pneumoniae sensitive to Ceftriaxone treated with IV Ceftriaxone until 02/19/18 cont PO Keflex until 02/26/18 ( 2 more days ) 5. Chronic congestive heart failure ( systolic dysfunction , compensated ) continue Lasix, NTG on CW, low salt diet 6. Multiple myeloma For outpatient treatment 7. Bilateral pleural effusion Most likely related to CHF CT chest showed moderate left pleural effusion had thoracenthesis on 02/13 with removal of 750 ml fluid that showed transudate continue management for CHF 8. Anemia chronic ,Stable Discharge Exam - Head Exam Additional comments: resolving frontal hematoma perioccular echymosis - Eye Exam Eye Exam: EOMI, PERRL - ENT Exam ENT Exam: Mucous Membranes Moist, Normal Exam - Neck Exam Neck exam: Normal Inspection - Respiratory Exam Respiratory Exam: Clear to PA & Lateral, NORMAL BREATHING PATTERN. absent: Rhonchi, Wheezes, Respiratory Distress - Cardiovascular Exam Cardiovascular Exam: REGULAR RHYTHM, RRR, +S1, +S2. absent: JVD - GI/Abdominal Exam GI & Abdominal Exam: Normal Bowel Sounds, Soft. absent: Distended, Guarding, Rebound, Tenderness - Rectal Exam Rectal Exam: Deferred - Extremities Exam Extremities exam: normal capillary refill, normal inspection, pedal pulses present - Back Exam Back exam: NORMAL INSPECTION - Neurological Exam Neurological exam: Alert, CN II-XII Intact, Oriented x3 - Psychiatric Exam Psychiatric exam: Normal Affect - Skin Skin Exam: Dry, Warm Additional comments: frontal hematoma saad occular echymosis Discharge Plan - Discharge Medications Prescriptions: Allopurinol [Zyloprim] 100 mg PO DAILY #30 tab Aspirin [Ecotrin] 81 mg PO DAILY #30 tabec Atorvastatin [Lipitor] 10 mg PO DAILY #30 tab Furosemide [Lasix] 20 mg PO DAILY #30 tab SITagliptin [Januvia] 25 mg PO DAILY #60 tab - Follow Up Plan Condition: IMPROVED Disposition: HOME/ ROUTINE Patient education suggested?: Yes Referrals: Nikko Pedro MD [Primary Care Provider] -
--- NOTE | 2018-02-24 10:36 | CP.PCM.PN ---
Subjective - Date & Time of Evaluation Date of Evaluation: 02/24/18 Time of Evaluation: 10:10 - Subjective Subjective: Pt symptom free Surgical site clean Telemetry shows mostly A sensed/V sensed rhytm Normal DDD mode May go home Spoke with Dr. Hu re discharge. Objective - Vital Signs/Intake and Output Vital Signs (last 24 hours): Temp Pulse Resp BP Pulse Ox 97.4 F L 81 18 168/79 H 97 02/24/18 08:17 02/24/18 08:17 02/24/18 08:17 02/24/18 09:05 02/24/18 08:17 - Medications Medications: Current Medications Acetaminophen (Tylenol 325mg Tab) 325 mg PO Q4 PRN PRN Reason: Pain, Mild (1-3) Acetaminophen (Tylenol 325mg Tab) 650 mg PO Q6 PRN PRN Reason: Pain, Mild (1-3) Last Admin: 02/23/18 22:47 Dose: 650 mg Albuterol/Ipratropium (Duoneb 3 Mg/0.5 Mg (3 Ml) Ud) 3 ml INH RQ6 PRN PRN Reason: wheezing Allopurinol (Zyloprim) 100 mg PO DAILY [facility] Last Admin: 02/24/18 09:04 Dose: 100 mg Aspirin (Ecotrin) 81 mg PO DAILY [facility] Last Admin: 02/24/18 09:03 Dose: 81 mg Atorvastatin Calcium (Lipitor) 10 mg PO DAILY [facility] Last Admin: 02/24/18 09:03 Dose: 10 mg Benzocaine/Menthol (Cepacol Sore Throat) 1 figueroa PO Q3H PRN PRN Reason: Sore Throat Brimonidine Tartrate (Alphagan 0.2% Opht) 1 drop OU HS [facility] Last Admin: 02/23/18 21:48 Dose: 1 drop Cephalexin Monohydrate (Keflex) 500 mg PO Q8 [facility] PRN Reason: Protocol Diltiazem HCl (Cardizem) 30 mg PO TID [facility] Docusate Sodium (Colace) 100 mg PO BID PRN PRN Reason: Constipation Furosemide (Lasix) 20 mg PO DAILY [facility] Last Admin: 02/24/18 09:05 Dose: 20 mg Guaifenesin (Robitussin) 100 mg PO QID PRN PRN Reason: cough Insulin Human Regular (Humulin R) 0 units SC ACHS [facility] PRN Reason: Protocol Last Admin: 02/24/18 06:44 Dose: Not Given Lisinopril (Zestril) 10 mg PO DAILY [facility] Nitroglycerin (Nitro-Bid 2% Oint) 1 ea TOP Q6H [facility] Last Admin: 02/24/18 06:20 Dose: Not Given Ondansetron HCl (Zofran Inj) 4 mg IVP Q6 PRN PRN Reason: Nausea/Vomiting Pantoprazole Sodium (Protonix Ec Tab) 40 mg PO DAILY [facility] Last Admin: 02/24/18 09:03 Dose: 40 mg Sitagliptin Phosphate (Januvia) 25 mg PO DAILY [facility] Last Admin: 02/24/18 09:11 Dose: 25 mg - Labs Labs: 02/24/18 06:25 02/24/18 06:25
[2018-02-24 12:32] VITALS: BP 151/74; PULSE 92; TEMP 98.4
--- NOTE | 2018-02-24 16:50 | CARD ---
APPROVED REPORT EKG Measurement Heart [id number] <Conclusion> Sinus rhythm with 1st degree AV block Left axis deviation Anteroseptal infarct, age undetermined T wave abnormality, consider lateral ischemia Abnormal ECG
--- NOTE | 2018-02-26 10:58 | RAD ---
PROCEDURE: Fluoroscopy in excess 1 hour in OR. . HISTORY: PACEMAKER INSERTION COMPARISON: None TECHNIQUE: Standard protocol for this study/examination. FINDINGS: Total fluoroscopic time (continuous mode) utilized during the procedure (seconds) 1290.5. IMPRESSION: Intraoperative fluoroscopy provided for pacemaker placement. Open yes
== END 2018-02-24 14:30 | disposition home or self-care (01) ==
LOC: H.OPSURG 06:22 → H.TEL 11:12 → INTOOBSV 11:12
PROVIDERS: ADMIT Internal Medicine; ATTEND Internal Medicine
DX: I49.5 Sick sinus syndrome (principal); I48.0 Paroxysmal atrial fibrillation; I50.22 Chronic systolic (congestive) heart failure; I25.10 Atherosclerotic heart disease of native coronary artery without angina pectoris; Z95.1 Presence of aortocoronary bypass graft; C90.00 Multiple myeloma not having achieved remission; D64.9 Anemia, unspecified; E78.00 Pure hypercholesterolemia, unspecified; R78.81 Bacteremia; B95.3 Streptococcus pneumoniae as the cause of diseases classified elsewhere; S00.83XA Contusion of other part of head, initial encounter; W19.XXXA Unspecified fall, initial encounter; Y92.231 Patient bathroom in hospital as the place of occurrence of the external cause; S02.2XXA Fracture of nasal bones, initial encounter for closed fracture; Z16.11 Resistance to penicillins; E11.9 Type 2 diabetes mellitus without complications; I11.0 Hypertensive heart disease with heart failure; R07.89 Other chest pain; J44.9 Chronic obstructive pulmonary disease, unspecified
CPT/HCPCS: 33208; 36415; 71045; 80053; 82948; 85027; 93005; C1721; C1779; C1785; C1894; C1898; G0378; J0690; J2250; J2704; J3010; J7030; J7120